=== PATIENT | female | born 2000 | race Caucasian/White ===

== ENCOUNTER 2021-12-22 17:48 | Emergency (ER) | payer BC, SELFPAY ==
[2021-12-22 18:17] VITALS: BP 113/72; PULSE 75; RESP 18; TEMP 37.3; O2SAT 98; BMI 19.9
[2021-12-22 19:06] LABS: Appearance Urine Clear (Clear); Bilirubin Urine Negative (Negative); Blood Urine 2+ (Negative); Color Urine Orange (Yellow); Glucose Urine Trace (Negative); Ketones Urine Negative (Negative); Leukocyte Esterase Urine Negative (Negative); Nitrite Urine Positive (Negative); Protein Urine Negative (Negative); Specific Gravity Urine <= 1.005 (1.000-1.030); pH Urine 5.5 (5.0-8.5)
[2021-12-22 19:21] LABS: RBC Urine 0-2 (0-2); WBC Urine 0-2 (0-5)
[2021-12-22] MEDS: CIPROFLOXACIN 500 MG TABLET PO (20:20)
--- NOTE | 2021-12-22 21:07 | ED_ITS ---
HPI - General Adult General Date Seen: 12/22/21 Chief complaint: Urogenital Problems, Female Stated complaint: Possible UTI, blood in urine Time Seen by Provider: 12/22/21 19:47 Source: patient History of Present Illness HPI narrative: Patient is a 21-year-old young woman who presents with urinary symptoms that started last night, she developed some dysuria and then had blood in her urine. She says that she has had lots of problems with urinary tract infections, some taking care of here, some taking care of elsewhere. She says that often cultures have been done, most of which have been positive. Looking through records here she does have a few cultures which have been positive, for which were not positive. She does state she has a new sexual partner, she is not having any abdominal pain, vaginal discharge, fevers, or any other concerning symptoms along those lines. No suspicion of . She is frustrated because she does seem to get UTIs frequent following intercourse, even though she always make sure to get up and go to the bathroom after intercourse. Says that she has plans to see a urologist but was not sure she needed a referral and so she has not made that appointment yet. Otherwise says her general health is good, she does not smoke, drinks a standard amount she says for a college student. Denies other substances. Related Data Home Medications Medication Instructions Recorded Confirmed escitalopram oxalate 10 mg tablet mg 12/22/21 methylphenidate HCl 10 mg biphasic mg PO 12/22/21 50-50 capsule,extended release norethindrone 1 mg-ethinyl tab 12/22/21 estradiol 20 mcg (24)-iron 75 mg (4) tablet (Blisovi 24 Fe) Previous Rx's Medication Instructions Recorded ciprofloxacin HCl 250 mg tablet 250 mg PO BID #10 tabs 12/22/21 (Cipro) nitrofurantoin macrocrystal 50 mg 50 mg PO Q24H PRN #20 caps 12/22/21 capsule Allergies Allergy/AdvReac Type Severity Reaction Status Date / Time Cephalosporins Allergy Intermediate Verified 12/22/21 18:22 Penicillins Allergy Intermediate Verified 12/22/21 18:22 Sulfa (Sulfonamide Allergy Intermediate Verified 12/22/21 18:22 Antibiotics) Review of Systems Status of ROS: Reports: 10 or more systems reviewed and unremarkable except as noted in History and below Exam Narrative: Exam Narrative: Vital signs as noted above. In general, an alert, well-appearing patient. Head: Normocephalic, atraumatic. Eyes: Pupils are equal reactive. Extraocular movements are full. Conjunctivae are normal. ENT: Mucous membranes are moist. Throat is normal. Neck: Supple without lymphadenopathy. Heart: Regular rate and rhythm. No murmur or rub. Lungs: Clear bilaterally. No increased work of breathing, crackles or wheezes. Abdomen: Soft and nontender. No organomegaly. No CVA tenderness. Extremities: Well perfused. No edema. No calf tenderness. Pulses intact. Neurologic: Patient is alert and oriented to person and place. Speech is fluent. Face is symmetric. Moves all extremities equally. Affect: Normal. Skin: Warm and dry. Well perfused. Const: Vital Signs, click to edit/add: Vital Signs - 24 hr 12/22/21 18:17 Temperature 99.1 F Pulse Rate [Pulse Oximeter] 75 Respiratory Rate 18 Blood Pressure [Ri ght Upper Arm] 113/72 Pulse Oximetry 98 Oxygen Delivery Me thod Room Air Documenting provider has reviewed patient's vital signs: yes Course Course Hospital Course: Urinalysis here is somewhat underwhelming, she does have positive nitrates and moderate bacteria, but 0-2 red cells and 0-2 white cells. I suggested to her that we get a 2nd urinalysis and run that for GC and chlamydia just to rule out urethritis, but given that she feels this is typical for her urinary tract i nfection and she has nitrates in her urine I am willing to treat her for urinary tract infection while we sort this out. Cultures pending. She just was on Macrobid she says a couple of months ago, so she would like to use something different. She says she has an allergy to cephalosporins so will use Cipro instead. I am going to give her prescription for nitrofurantoin 50 mg and have her try taking 1 of those after intercourse and see if she has fewer problems with UTI using that as a preventative. Otherwise, she can follow up with Urology as planned if she continues to have significant numbers of urinary tract infection. Return for worsening symptoms such as fever, abdominal or flank pain, vomiting. GC chlamydia pending. Nothing clinically to suspect PID. Vital Signs Vital signs: Initial Vital Signs Temperature 99.1 F 12/22/21 18:17 Temperature Source Temporal Artery Scan 12/22/21 18:17 Pulse Rate 75 12/22/21 18:17 Respiratory Rate 18 12/22/21 18:17 Blood Pressure 113/72 12/22/21 18:17 Blood Pressure Mean 85 12/22/21 18:17 Blood Pressure Position Supine 12/22/21 18:17 Pulse Oximetry 98 12/22/21 18:17 Oxygen Delivery Method 12/22/21 18:17 Vital Signs Temperature 99.1 F 12/22/21 18:17 Pulse Rate 75 12/22/21 18:17 Respiratory Rate 18 12/22/21 18:17 Blood Pressure 113/72 12/22/21 18:17 Pulse Oximetry 98 12/22/21 18:17 Oxygen Delivery Method 12/22/21 18:17 Temperature 99.1 F 12/22/21 18:17 Pulse Rate 75 12/22/21 18:17 Respiratory Rate 18 12/22/21 18:17 Blood Pressure 113/72 12/22/21 18:17 Pulse Oximetry 98 12/22/21 18:17 Oxygen Delivery Method 12/22/21 18:17 Medical Decision Making Lab Data Labs: Lab Results 12/22/21 Range/Units 19:03 Urine Color Sullivan A (Yellow) Urine Appearance Clear (Clear) Urine pH 5.5 (5.0-8.5) Ur Specific [place] <= 1.005 (1.000-1.030) Urine Protein Negative (Negative) Urine Glucose (UA) Trace A (Negative) Urine Ketones Negative (Negative) Urine Blood 2+ A (Negative) Urine Nitrite Positive A (Negative) Urine Bilirubin Negative (Negative) Urine Urobilinogen 1.0 (0.2-1.0) Ur Leukocyte Esterase Negative (Negative) Urine RBC 0-2 (0-2) Urine WBC 0-2 (0-5) Ur Squamous Epith Cells None (None-Few) Urine Bacteria None (None) Discharge Plan Discharge Clinical Impression: Urinary tract infection Patient Disposition: Home, Self-Care Condition: Stable Instructions: Urinary Tract Infection in Women (DC) Additional Instructions: Antibiotic as prescribed. Nitrofurantoin for use after intercourse. Await culture results and we will call you if anything turns up on the GC/chlamydia testing. Return for new symptoms such as fever, vomiting, flank pain. Prescriptions: New ciprofloxacin HCl [Cipro] 250 mg tablet 250 mg PO BID Qty: 10 0RF nitrofurantoin macrocrystal 50 mg capsule 50 mg PO Q24H PRNQty: 20 0RF Rx Instructions: must administer with a meal/food No Action escitalopram oxalate 10 mg tablet Label Comments: TAKE ONE AND ONE HALF PILLS A DAY methylphenidate HCl 10 mg capsule,ER biphasic 50-50 PO Label Comments: TAKE ONE CAPSULE BY MOUTH EVERY DAY IN THE MORNING norethindrone-e.estradiol-iron [Blisovi 24 Fe] 1 mg-20 mcg (24)/75 mg (4) tablet Label Comments: TAKE 1 TABLET BY MOUTH EVERY DAY Stand Alone Forms: MyHealth Info Instructions
--- OUTSIDE RECORDS SUMMARY | 2021-12-22 21:12 | XMS_ITS | Clinical Summary ---
:2000 Author Organization [facility] [place] [address] Care Team Providers Name Role Phone Pcp, No Primary Care Provider Unavailable Allergies Active Allergy Reactions Severity Noted Date Comments Cephalosporins Hives 02/25/2021 Penicillins Hives 02/25/2021 Sulfa (Sulfonamide Antibiotics) Hives Medications Medication Sig Dispensed Refills Start Date End Date Status nitrofurantoin 0 02/22/2021 Acti ve macrocrystals/monohydra te (MACROBID) 100 mg capsule Blisovi 24 Fe 1 mg-20 0 12/13/2020 Active mcg (24)/75 mg (4) tab HYDROcodone-acetaminoph 0 12/25/2020 Active en (NORCO) 5-325 mg per tablet escitalopram oxalate 0 12/12/2020 Active (LEXAPRO) 10 mg tablet clonazePAM (KLONOPIN) TAKE 1/2 TO 1 0 07/23/2020 Active 0.5 mg tablet TABLET BY MOUTH AT NIGHT NEEDED azithromycin (Zithromax As directed 1 6 Tablet 0 02/25/2021 Active Z-Krishna) 250 mg Tablet (250 mg) tabletIndications: every 24 hours. Non-recurrent acute Two tablets the suppurative otitis first day, one media of left ear daily days 2-5 without spontaneous rupture of tympanic membrane Active Problems Not on file Immunizations Name Administration Dates Next Due COVID-19 vaccine ([facility] 30mcg/0.3mL) PF, 1, 08/02/2020 MDV Influenza, IIV4 01/24/2021 Social History Tobacco Use Types Packs/Day Years Used Date Never Smoker Smokeless Tobacco: Never Used Tobacco Cessation: Counseling Given: Yes Alcohol Use Standard Drinks/Week Comments Yes 0 (1 standard drink = 0.6 oz pure alcoho l) weekends Alcohol Habits Answer Date Recorded How often do you have a drink containing alcohol? Not asked How many drinks containing alcohol do you have on a typical Not asked day when you are drinking? How often do you have six or more drinks on one occasion? No t asked Comment: weekends 02/25/2021 Sex Assigned at Date Recorded Not on file Obstetrics History Last Filed Vital Signs Vital Sign Reading Time Taken Comments Blood Pressure 116/74 02/25/2021 4:02 PM [facility] Pulse 78 02/25/2021 4:02 PM [facility] Temperature - - Respiratory Rate - - Oxygen Saturation 96% 02/25/2021 4:02 PM [facility] Inhaled Oxygen Concentration - - Weight 62.1 kg (136 lb 12.8 oz) 02/25/2021 4:02 PM [facility] Height - - Body Mass Index - - Plan of Treatment Health Maintenance Due Date Last Done Comments Well Child Check for age 3-20 05/15/2004 HPV series for age 9-26 (1 - 2012 2-dose series) Tdap 2012 Depression screening for age 0306/12/2013 12+ Chlamydia for age 16-24 2017 BMI (ht and wt on same day) 06/13/2019 for age 18+ Hepatitis C screening for age 0306/13/2019 18-79 COVID-19 vaccine series (3 - 01/23/2021 08/23/2020, Booster for Pfizer series) 08/02/2020 Tetanus booster 2021 Influenza for age 9-49 12/12/2021 01/24/2021 Meningococcal series for age Aged Out No longer eligible based - on patient's age to complete this to pic Results Not on filefrom Last 3 Months Insurance Payer Benefit Plan / Subscriber ID Effective Dates Phone Addre ss Type Group [place] [id number] 2001-Present [place] [address] [id number] [place] [address] Care Teams Workforce Development Assistant Relationship Specialty Start Date End Date Pcp, No PCP - General 02/25/21 .
--- OUTSIDE RECORDS SUMMARY | 2021-12-22 21:12 | XMS_ITS ---
:2000 Author Organization [facility] [place] Address [address] [place] [address]- Encounter 09/07/20 - 09/07/20 [facility] [place] [address] [place] [address] [facility] Encounter Diagnosis Skin infection (Discharge Diagnosis) - 09/07/20 Attending Physician: AYDEN Flores Admitting Physician: AYDEN Flores Referring Physician: [id number] -SELF-REFERRED, Allergies, Adverse Reactions, Alerts Substance Reaction Severity Status penicillin Active cephalosporins Active sulfa drugs Active Medications Bactroban 2% topical ointment 1 appl, Oint, TOP, 3x/day, X 10 Day(s), # 22 gm, 0 Refill(s), Rx or Hx Med Start Date: 09/07/20 Stop Date: 09/17/20 Status: Ordered Social History Social History Type Response Smoking Status Never smoker Sex Vital Signs Most recent to oldest [Reference Range]: 1 Temperature Oral [36-37.8 DegC] 36.5 DegC (09/07/20 9:07 AM) Peripheral Pulse Rate [60-100 bpm] 81 bpm (09/07/20 9:07 AM) Respiratory Rate [12-20 BR/min] 16 BR/min (09/07/20 9:07 AM) Blood Pressure [90-140/60-90 mmHg] 118/78 mmHg (09/07/20 9:07 AM) BP Obtained ? Yes PC Adult Intake (09/07/20 9:07 AM) Height/Length Dosing [129-213 cm] 175.3 cm (09/07/20 9:07 AM) Body Mass Index Dosing 20.01 kg/m2 (09/07/20 9:07 AM) Weight Dosing 61.5 kg (09/07/20 9:07 AM)
--- OUTSIDE RECORDS SUMMARY | 2021-12-22 21:12 | XMS_ITS ---
:2001 Author Care Team Providers Name Role Phone Mmtg Lab Schedule Primary Care Provider Unavailable Allergies None recorded. Medications None recorded. Problems None recorded. Procedures None recorded. Results Lab Results None recorded. Past Encounters 04/01/2021 Administration of SARS-CoV-2 Antigen Vac cine Prem Chandra MD: [address] [place], [place] [address], Ph. Social History None recorded. Vaccine List Vaccine Type COVID-19, mRNA, LNP-S, PF, 30 mcg/0.3 mL dose ([facility]) 08/02/2020 08/20/2020 04/01/2021?0.3 mL Plan of Care Reminders Provider Appointments None recorded. ? ? Lab None recorded. ? ? Referral None recorded. ? ? Procedures None recorded. ? ? Surgeries None recorded. ? ? Imaging None recorded. ? ? Vitals None recorded.
--- OUTSIDE RECORDS SUMMARY | 2021-12-22 21:12 | XMS_ITS ---
:2001 Author Organization [facility] Address [address] [place] [address]- Encounter 11/27/21 - 11/27/21 [facility] [place] [address] [place] [address] [facility] Encounter Diagnosis Urinary tract infection (Discharge Diagnosis) - 11/27/21 Attending Physician: AYDEN Cannon Sheila K. Admitting Physician: AYDEN Cannon Sheila K. Referring Physician: SELF-REFERRED, Allergies, Adverse Reactions, Alerts Substance Reaction Severity Status penicillin Active cephalosporins Active sulfa drugs Active Medications Bactroban 2% topical ointment 1 appl, Oint, TOP, 3x/day, X 10 Day(s), # 22 gm, 0 Refill(s), Rx or Hx Med Start Date: 09/07/20 Stop Date: 09/17/20 Status: CompletedMacrobid 100 mg oral capsule 100 mg = 1 cap, Cap, PO, 2x/day, X 7 Day(s), # 14 cap, 0 Refill(s), Pharmacy: [id number], Rx or Hx Med, 175, 11/27/21 9:05:00 EDT, cm, Height/Length Dosing, 61.6, 11/27/21 9:05:00 EDT,kg, Weight Dosing Start Date: 11/27/21 Stop Date: 12/04/21 Status: Ordered Results Laboratory List Name Date Bill For AMB POC Urine Test Visual Color Cmp rsn Meths 79268 11/27/21 Bill For AMB POC Urnls Dip Stick/Tablet Reagent Auto M icroscopy 10833 11/27/21 Most recent to oldest [Reference Range]: 1 POC Urinalysis Leukocyte Negative (11/27/21 9:15 AM) POC Urinalysis Urobilinogen 0.2 mg/dl (normal) (11/27/21 9:15 AM) POC Urinalysis Protein Negative (11/27/21 9:15 AM) POC Urinalysis pH 6 (11/27/21 9:15 AM) POC Urinalysis Blood Negative (11/27/21 9:15 AM) POC Urinalysis Specific [place] 1.030 (11/27/21 9:15 AM) POC Urinalysis Ketone Negative (11/27/21 9:15 AM) POC Urinalysis Glucose Negative (11/27/21 9:15 AM) POC hCG Ql Negative (11/27/21 9:15 AM) Social History Social History Type Response Smoking Status Never smoker Sex Female Vital Signs Most recent to oldest [Reference Range]: 1 Temperature Temporal [36.3-37.8 DegC] 36.3 DegC (11/27/21 8:55 AM) Peripheral Pulse Rate [60-100 bpm] 70 bpm (11/27/21 8:55 AM) Respiratory Rate [12-20 BR/min] 15 BR/min (11/27/21 8:55 AM) Blood Pressure [90-139/60-89 mmHg] 107/72 mmHg (11/27/21 8:55 AM) BP Obtained ? Yes PC Adult Intake (11/27/21 8:55 AM) Height/Length Dosing [129-213 cm] 175 cm (11/27/21 8:55 AM) Body Mass Index Dosing 20.11 kg/m2 (11/27/21 8:55 AM) Weight Dosing 61.6 kg (11/27/21 8:55 AM) Hospital Discharge Instructions Patient Pucfjbucy01/17/2022 09:40:35Urinary Tract InfectionUrinary Tract Infection Urinary tract infections (UTIs) can develop anywhere along your urinary tract. Your urinary tract isyour body's drainage system for removing wastes and extra water. Your urinary tract includes two kidneys, two ureters, a bladder, and a urethra. Your kidneys are a pair of lopez-shaped organs. Each kidney is about the size of your fist. They are located below your ribs, one on each side of your spine. CAUSES Infections are caused by microbes, which are microscopic organisms, including fungi, viruses, and bacteria. These organisms are so small that they can only be seen through a microscope. Bacteria are the microbes that most commonly cause UTIs. SYMPTOMS Symptoms of UTIs may vary by age and gender of the patient and by the location of the infection. Symptoms in young women typically include a frequent and intense urge to urinate and a painful, burning feeling in the bladder or urethra during urination. Older women and men are more likely to be tired, shaky, and weak and have muscle aches and abdominal pain. A fever may mean the infection is in your kidneys. Other symptoms of a kidney infection include pain in your back or sides below the ribs, nausea, and vomiting. DIAGNOSIS To diagnose a UTI, your caregiver will ask you about your symptoms. Your caregiver also will ask to provide a urine sample. The urine sample will be tested for bacteria and white blood cells. White blood cells are made by your body to help fight infection. TREATMENT Typically, UTIs can be treated with medication. Because most UTIs are caused by a bacterial infection, they usually can be treated with the use of antibiotics. The choice of antibiotic and length of treatment depend on your symptoms and the type of bacteria causing your infection. HOME CARE INSTRUCTIONS ?If you were prescribed antibiotics, take them exactly as your caregiver instructs you. Finishthe medication even if you feel better after you have only taken some of the medication. ?Drink enough water and fluids to keep your urine clear or pale yellow. ?Avoid caffeine, tea, and carbonated beverages. They tend to irritate your bladder. ?Empty your bladder often. Avoid holding urine for long periods of time. ?Empty your bladder before and after sexual intercourse. ?After a bowel movement, women should cleanse from front to back. Use each tissue only once. SEEK MEDICAL CARE IF: ?You have back pain. ?You develop a fever. ?Your symptoms do not begin to resolve within 3 days. SEEK IMMEDIATE MEDICAL CARE IF: ?You have severe back pain or lower abdominal pain. ?You develop chills. ?You have nausea or vomiting. ?You have continued burning or discomfort with urination. MAKE SURE YOU: ?Understand these instructions. ?Will watch your condition. ?Will get help right away if you are not doing well or get worse. This information is not intended to replace advice given to you by your health care provider. Make sure you discuss any questions you have with your health care provider. Document Released: 01/07/2006 Document Revised: 04/20/2015 Document Reviewed: 05/07/2012 Elsevier Interactive Patient Education ??2016 [employer]
[2021-12-22 22:16] LABS: Chlamydia DNA Amplified* NOT DETECTED (No Detected); GC DNA Amplified* NOT DETECTED (No Detected)
== END 2021-12-22 21:16 | disposition home or self-care (01) ==
LOC: ED 21:09
PROVIDERS: Emergency Provider Emergency Medicine
DX: N39.0 Urinary tract infection, site not specified (principal)
CPT/HCPCS: 81001; 87086; 87491; 87591; 99283; A9270

== ENCOUNTER 2022-08-24 17:43 | Emergency (ER) | payer BC, SELFPAY ==
[2022-08-24 17:56] VITALS: BP 118/70; PULSE 81; RESP 18; TEMP 36.7; O2SAT 100; BMI 20.7
[2022-08-24 17:59] LABS: Appearance Urine Clear (Clear); Bilirubin Urine Negative (Negative); Blood Urine 1+ (Negative); Color Urine Yellow (Yellow); Glucose Urine Negative (Negative); Ketones Urine Negative (Negative); Leukocyte Esterase Urine 1+ (Negative); Nitrite Urine Negative (Negative); Protein Urine Negative (Negative); Specific Gravity Urine <= 1.005 (1.000-1.030); Urobilinogen Urine 0.2 (0.2-1.0); pH Urine 6.5 (5.0-8.5)
[2022-08-24 18:08] LABS: Squamous Epithelial Cell Urine Moderate (None-Few)
--- NOTE | 2022-08-24 18:08 | ED.FEMALEGU ---
HPI - Female Genitourinary General Time Seen by Provider: 18:08 Date Seen: 08/24/22 Chief complaint: Urogenital Problems, Female Stated complaint: Possible UTI Time Seen by Provider: 08/24/22 17:50 Source: patient, RN notes reviewed and old records reviewed Mode of arrival: ambulatory Limitations: no limitations History of Present Illness HPI Narrative: Patient is a 22-year-old female with history of UTIs coming to the ER with concern of urinary tract infection. Since yesterday she is had frequency, urgency, dysuria, going small amounts. She is not documented any fever but states she felt a little chilled today. She has had no nausea or vomiting. She has some suprapubic discomfort but no abdominal pain per se. There are no vaginal symptoms with this. She is on oral contraceptive, takes a daily, has not missed any doses. There may be is a history of a kidney stone once, it was not collected, she is not sure if she indeed past are not. She is having no flank pain or abdominal pain consistent with any of those prior symptoms. MD elicited complaint: UTI Related Data Home Medications Medication Instructions Recorded Confirmed escitalopram oxalate 10 mg tablet 15 mg PO DAILY 12/22/21 08/24/22 methylphenidate HCl 10 mg biphasic 10 mg PO DAILY 12/22/21 08/24/22 50-50 capsule,extended release norethindrone 1 mg-ethinyl 1 tab PO DAILY 12/22/21 08/24/22 estradiol 20 mcg (24)-iron 75 mg (4) tablet (Blisovi 24 Fe) escitalopram oxalate 5 mg tablet 5 mg PO DAILY 08/24/22 08/24/22 Allergies Allergy/AdvReac Type Severity Reaction Status Date / Time Cephalosporins Allergy Intermediate Verified 08/24/22 18:00 Penicillins Allergy Intermediate Verified 08/24/22 18:00 Sulfa (Sulfonamide Allergy Intermediate Verified 08/24/22 18:00 Antibiotics) Review of Systems Narrative: As per HPI PFSH PFSH Social History Smoking Status: Never smoker Do you use any of these nicotine containing products: None Second hand tobacco smoke exposure: No How often do you have a drink containing alcohol: 2-4 times a month How many standard drinks containing alcohol do you have on a typical day: 5 or 6 How often do you have six or more drinks on one occasion: Monthly AUDIT-C Alcohol total score: 6 Non-prescribed substance use: denies use Exam Const: Vital Signs, click to edit/add: Vital Signs - 24 hr 08/24/22 17:56 Temperature 98.1 F Pulse Rate [Pulse Oximeter] 81 Respiratory Rate 18 Blood Pressure [Ri ght Upper Arm] 118/70 Pulse Oximetry 100 Oxygen Delivery Me thod Room Air Documenting provider has reviewed patient's vital signs: yes Common normals: no apparent distress, average body habitus, oriented x3, no limitations, healthy appearing, alert and well nourished HENMT: Common normals: normocephalic Head and scalp: normocephalic Eye: Common normals: conjunctivae normal and no scleral icterus Conjunctiva: conjunctiva(e) normal Resp: Common normals: normal respiratory effort, no retractions, no use of accessory muscles and clear to auscultation bilaterally Auscultation: clear to auscultation bilaterally Cardio: Common normals: regular rate, regular rhythm, S1 normal heart sound, S2 normal heart sound, no gallops, no clicks and no murmurs Rate: regular rate Rhythm: regular rhythm Heart sounds: S1 normal and S2 normal GI: Common normals: Normal to inspection, nondistended, normoactive bowel sounds present, soft to palpation, non-tender and no masses Palpation: soft : Common normals: no CVA tenderness Bladder/kidney exam: no CVA tenderness Back & Pelvis: Common normals: no CVA tenderness Neuro: Common normals: oriented x3 Sensorium/orientation: alert Course Course Hospital Course: Reviewed with patient we will await the urinalysis, hopefully will not be long. She left a specimen already and it is already down in lab. Reevaluation(s) Reevaluation #1: Did review urinalysis results with patient. Her specific gravity was low in confirmed that she has been drinking lots of fluids. Despite that, she still does have a few red and white cells in the urine, both 5-10. Did also review that there was contamination with squamous epithelial cells. She is quite sure that she has urinary tract infection. She would prefer treating. Did offer to recollect a specimen but she would like to treat. I do think her symptoms support recognition of UTI and treatment. Time: 18:17 Vital Signs Vital signs: Initial Vital Signs Temperature 98.1 F 08/24/22 17:56 Temperature Source Temporal Artery Scan 08/24/22 17:56 Pulse Rate 81 08/24/22 17:56 Respiratory Rate 18 08/24/22 17:56 Blood Pressure 118/70 08/24/22 17:56 Blood Pressure Mean 86 08/24/22 17:56 Blood Pressure Position Sitting 08/24/22 17:56 Pulse Oximetry 100 08/24/22 17:56 Oxygen Delivery Method Room Air 08/24/22 17:56 Vital Signs Temperature 98.1 F 08/24/22 17:56 Pulse Rate 81 08/24/22 17:56 Respiratory Rate 18 08/24/22 17:56 Blood Pressure 118/70 08/24/22 17:56 Pulse Oximetry 100 08/24/22 17:56 Oxygen Delivery Method Room Air 08/24/22 17:56 Temperature 98.1 F 08/24/22 17:56 Pulse Rate 81 08/24/22 17:56 Respiratory Rate 18 08/24/22 17:56 Blood Pressure 118/70 08/24/22 17:56 Pulse Oximetry 100 08/24/22 17:56 Oxygen Delivery Method Room Air 08/24/22 17:56 MDM - Female Genitourinary Differential Diagnosis Differential diagnosis: Likely urinary tract infection, bacterial vaginosis, vaginitis and cystitis Lab Data Attestation: I reviewed the patient's lab results. Labs: Lab Results 08/24/22 Range/Units 17:53 Urine Color Yellow (Yellow) Urine Appearance Clear (Clear) Urine pH 6.5 (5.0-8.5) Ur Specific [place] <= 1.005 (1.000-1.030) Urine Protein Negative (Negative) Urine Glucose (UA) Negative (Negative) Urine Ketones Negative (Negative) Urine Blood 1+ A (Negative) Urine Nitrite Negative (Negative) Urine Bilirubin Negative (Negative) Urine Urobilinogen 0.2 (0.2-1.0) Ur Leukocyte Esterase 1+ A (Negative) Urine RBC 5-10 A (0-2) Urine WBC 5-10 A (0-5) Ur Squamous Epith Cells Moderate A (None-Few) Urine Bacteria None (None) Critical Care Time Critical Care Time Critical Care Time: No Discharge Plan Discharge Clinical Impression: Urinary tract infection Patient Disposition: Home, Self-Care Condition: Stable Instructions: Urinary Tract Infection in Women (ED) Additional Instructions: Continue pushing fluids to help minimize urinary symptoms. Start Macrobid and take as prescribed, 1 pill twice daily for 5 days. If you are not improving in the next few days or are worsening at any point, are unable to take antibiotics for any reason, do need to be re-evaluated. Activity Level: Activity as Tolerated Discharge Diet: Regular Prescriptions: No Action escitalopram oxalate 10 mg tablet 15 mg PO DAILY Patient Comments: TAKE ONE AND ONE HALF PILLS A DAY methylphenidate HCl 10 mg capsule,ER biphasic 50-50 10 mg PO DAILY Patient Comments: TAKE ONE CAPSULE BY MOUTH EVERY DAY IN THE MORNING Blisovi 24 Fe 1 mg-20 mcg (24)/75 mg (4) tablet 1 tab PO DAILY Patient Comments: TAKE 1 TABLET BY MOUTH EVERY DAY escitalopram oxalate 5 mg tablet 5 mg PO DAILY Follow Up/Referrals: Provider,Not a Local [Primary Care Provider] - Stand Alone Forms: [employer] Info Instructions
--- OUTSIDE RECORDS SUMMARY | 2022-08-24 18:26 | XMS_ITS | Continuity of Care Document ---
Author Name Unknown Organization [facility] Address [address], [address] [place] [address] Phone Care Team Providers Care Inventory Transcriber Name Role Phone Estrella Lawrence Unavailable Unavailable Allergies, Adverse Reactions, Alerts Substance Reaction Status Criticality Cephalosporins hives Active No Informatio n Sulfa (Sulfonamide Antibiotics) hives Active No Information Penicillins Hives Active No Information Medications Medication Instructions Dosage Effective Dates (start - stop) Status Comments 1 mg-20 mcg (24)/75 mg (4) tablet TAKE 1 TABLET BY MOUTH EVERY DAY - Active Macrobid 100 mg capsule take 1 capsule by oral route every 12 hours with food 100 MG - Active FOREST ALLERGY (unknown strength) take 1 tablet by oral route 2 times every day Not Available - Active Lexapro 10 mg tablet take 1 tablet by oral route every day 10 MG - Active Procedures Procedure Date PREV VISIT, EST, AGE 18-39 OFFICE/OUTPATIENT VISIT, EST CHYLMD TRACH DNA AMP PROBE N.GONORRHOEAE DNA AMP PROB OFFICE/OUTPATIENT VISIT, EST PREV VISIT, EST, AGE 18-39 OFFICE/OUTPATIENT VISIT, EST URINALYSIS, AUTO W/SCOPE URINE CULTURE/COLONY COUNT OFFICE/OUTPATIENT VISIT, EST URINALYSIS, AUTO W/SCOPE URINE CULTURE/COLONY COUNT PREV VISIT, EST, AGE 18-39 OFFICE/OUTPATIENT VISIT, NEW Advance Directives Directive Yes / No Effective Date File Name No Information Encounters Encounter Description Practice Location Reason(s) For Visit Diagnoses Date Provider Providers Copied on Encounter [facility], [address], [address], [place], [id number], [place] tel:[phone] 24 Research No Information 2 Srinivasa De La Rosa. [address], [address], [place], [place], [id number] . tel: [phone] [facility], [address], [address], [place], [id number], [place] tel:[phone] 24 Research No Information 2 Charlie LASHELL Avilesig. [address] , [address], [place] , [id number] , [place]. tel: [phone] PREV VISIT, EST, AGE 18-39 [facility], [address], [address], [place], [id number], [place] tel:[phone] Research Annual Exam (chief complaint) *STI Screening (chief complaint) Encounter for gynecological examination (general) (routine) without abnormal findingsEncounter for screening examination for sexually transmitted diseaseEncounter for surveillance of contraceptive pills 2 Srinivasa De La Rosa. [address], [address], [facility] , [id number] . tel: [phone] Referring Provider: Estrella Bernabe, [address], [facility] , [id number]. tel:[phone] OFFICE/OUTPAT IENT VISIT, EST [facility], [address], [address], [place], [id number], [place] tel:[phone] Research possible UTI (chief complaint) UTI symptomsEncounter for screening examination for sexually transmitted diseaseVaginitis and vulvovaginitis, unspecified 2 Alondra Ortega. [address] , [address], [place], [place], , [place]. tel: [phone] Referring Provider: Jordan Gonzales, [address], [place], [place], . tel:[phone] OFFICE/OUTPAT IENT VISIT, [facility], [address], [address], [place], [id number], [place] tel:[phone] 24 Research *HOSE TUBING BACKER Problems (chief complaint) Vaginal lesionChronic UTI 1 Alondra Ortega. [address] , [address], [place], [place], [id number] , [place]. tel: [phone] Referring Provider: Jordan Gonzales, [address], [place], [place], [id number]. tel:[phone] PREV VISIT, [facility], AGE 18-39 [facility], [address], [address], [place], [id number], [place] tel:[phone] Research Annual Exam (chief complaint) Encounter for gynecological examination (general) (routine) without abnormal findingsSexually transmitted disease counseling 1 Alondra Ortega. [address] , [address], [place], [place], , [place]. tel: [phone] Referring Provider: Jordan Gonzales, [address], [place] , . tel:[phone] OFFICE/OUTPAT IENT VISIT, [facility], [address], [address], [place], [id number], [place] tel:[phone] Research *vaginal itching (chief complaint) Vaginitis and vulvovaginitis, unspecifiedUTI (urinary tract infection), bacterial 0 Alondra Ortega. [address] , [address], [place], [id number] , [place]. tel: [phone] Referring Provider: Jordan Gonzales, [address], [facility] , [id number]. tel:[phone] OFFICE/OUTPAT IENT VISIT, [facility], [address], [place], [id number], [place] tel:[phone] 24 Research *UTI (chief complaint) Hematuria due to acute cystitis 0 Srinivasa De La Rosa. [address], [address], [place], [place], . tel: [phone] Referring Provider: Estrella Bernabe, [address], [place], [place], [id number]. tel:[phone] PREV VISIT, [facility], AGE 18-39 [facility], [address], [address], [place], [id number], [place] tel:[phone] 24 Research Annual Exam (chief complaint) Encntr for labor conciliator exam (general) (routine) w/o abn findingsSexually transmitted disease counseling 0 Alondra Ortega. [address] , [address], [facility] , [id number] , [place]. tel: [phone] Referring Provider: Jordan Gonzales, [address], [facility] , . tel:[phone] OFFICE/OUTPAT IENT VISIT, [facility], [address], [address], [place], [id number], [place] tel:[phone] Research consult for becoming sexually active (chief complaint) irregular menses (chief complaint) Irregular mensesSexually transmitted disease counselingBirth control counseling 0 Alondra Ortega. [address] , [address], [facility] , [id number] , [place]. tel: [phone] Referring Provider: Jordan Gonzales, [address], [facility] , [id number]. tel:[phone] Family History Family Member Type Diagnosis Age At Onset Father Problem (finding) Cancer, colon Payers Payer name Insurance type Covered libertarian ID Jess diaz(s) [facility] [id number] Social History Type Description Quantity Date Captured Comments Alcohol Use Details Unknown Caffeine Use Details Unknown Tobacco Use Status No Information Smoking Status No Information Sex Female Chief Complaint And Reason For Visit No Information Plan Of Treatment Date Type Action Status No Information History Of Present Illness Encounter Date Complaint History Of Prese nt Illness *STI Screening Annual Exam The patient stat es she uses oral contraceptive for control. Last LMP was 11/11/2021. Her menses is regular with normal flow. Negative for dysmenorrhea and menorrhagia. Negative for: breast discharge, breast lump(s) and breast pain. Positive for: breast self exam. Pertinent negatives include abnormal bleeding (hematology), abnormal vaginal bleeding, dyspareunia, urinary incontinence, urinary urgency, vaginal discharge and vaginal itching. Diet healthy.The patient states her exercise level is walk and frequency is occasional. Additional information: Patient presents for WWE. She had a new sexual partner, desires STI screening, asymptomatic. Has chronic and frequent UTIs, going to see urologist. College in [place], studying psychology and neuropsychology. . possible UTI Pt has a hx of f req UTI's but usually related to sex. Now home on break and developed sx's last pm of dysuria and frequency. *HOSE TUBING BACKER Problems The patient pres ents with a complaint of lesion/sore. Onset: 1 month ago. Symptoms are spontaneous. Status: resolved. Location: vagina. Symptoms are aggravated by intercourse. Context includes: intercourse (after). Associated symptoms include pain with intercourse and vaginal bleeding. Patient is not experiencing chills, fever, malaise, bloating, blood in stool, nausea, vomiting and back pain. Additional information: 1 mo ago had a yeast infection, had sex with same partner x 8 mos. After intercourse, had BRB and pain. Looked with a mirror and saw a tear around the opening at 6:00. Also UTI x 3 this fall. Annual Exam The patient stat es she uses oral contraceptive for control. Last LMP was 10/26/2020. Her menses is regular. Additional information: 4 partners total. Current BF since 05/2020. Going well. Wants STD screening.. *vaginal itching Context: LMP: 1 05/10/2019. Additional information: Pt has been having BTB on 1st pack of OC's. Also recently SA with new BF. Also had recent UTI and yeast after. Currently c/o external vaginal itching and irritation. *UTI Onset: on 2019. Location is suprapubic. The patient describes it as bloody (gross) and cramping. The problem is improving. Denies aggravating factors. Relieving factors include antibiotics. Additional information: history of UTIs, LMP: 11/11/2019, Patient c/o dysuria with hematuria. Denies fever, vaginal sx. Had script for nitrofurantoin at home, has been taking BID since Thursday and dysuria is resolved. BRB drops in toilet/wiping. Annual Exam Her menses is re gular. Negative for dysmenorrhea and menorrhagia. Additional information: No new partners. Broke up with BF.. irregular menses Last menstrual period was on 06/21/2019. Pertinent negatives include nausea.Additional information: The pt usually has regular menses q mo but has occ irregular cycles, particularly when feels stressed. Currently on her period. consult for becoming sexually active Pt recently became SA for the 1st time a few months ago. 1 partner. He had no prior partners. They used condoms. She wants to discuss BC and STD prevention. Instructions Date Instruction Additional Infor lemuel No Information Assessments Type Assessment Date No Information
--- OUTSIDE RECORDS SUMMARY | 2022-08-24 18:26 | XMS_ITS | Continuity of Care Document ---
Author Name Unknown Organization [facility] Address [address] [place] [address] Phone Care Team Providers Care Content Development Specialist Name Role Phone Unavailable Unavailable Unavailable Allergies, Adverse Reactions, Alerts Substance Reaction Status Criticality Cephalosporins Rash Active No Informatio n Advance Directives Directive Yes / No Effective Date File Name Resuscitation Not Answered N/A N/A Life Support Not Answered N/A N/A Intubation Not Answered N/A N/A Antibiotics Not Answered N/A N/A IV Fluid Support Not Answered N/A N/A Tube Feed Not Answered N/A N/A Other Directive N/A N/A WARNING:The information contained in this section is historical and is provided for information only and does not constitute a legal document or any assurance that the information is still accurate. Please verify the information with the chen of the legal document before using it for clinical purposes. Encounters Encounter Description Practice Location Reason(s) For Visit Diagnoses Date Provider Providers Copied on Encounter [facility], [address], [place], [place], [id number], tel:[phone] [place] No Information No Information Referring Provider: JUANY VILLAR, [address], [place], [address]. tel:[phone] Family History Family Member Type Diagnosis Age At Onset Father Problem (finding) Heart murmur as a child Paternal Grandfather Problem (finding) Rheumatic fever Payers Payer name Insurance type Covered alliance party ID Authoriza timone(s) KAYLYN SINGH [place] PPO [id number] Social History Type Description Quantity Date Captured [...]
--- OUTSIDE RECORDS SUMMARY | 2022-08-24 18:29 | XMS_ITS | Continuity of Care Document ---
Author Name Unknown Organization [facility] Address [address] [place] [address] Phone Care Team Providers Care Biomedical Engineering Supervisor Name Role Phone Unavailable Unavailable Unavailable Allergies, [...] on Encounter [facility], [address], [place], [place], [id number], tel:[phone] [place] No Information No Information Referring Provider: JUANY VILLAR, [address] [facility], [place], [address]. tel:[phone] Family History Family Member Type Diagnosis Age At Onset Father Problem (finding) Heart murmur as a child Paternal Grandfather Problem (finding) Rheumatic fever Payers Payer name Insurance type Covered green party ID Authoriza timone(s) KAYLYN SINGH MD PPO [id number] Social History Type Description Quantity Date Captured [...]
--- OUTSIDE RECORDS SUMMARY | 2022-08-24 18:29 | XMS_ITS | Continuity of Care Document ---
Author Name Unknown Organization [facility] Care Address [address], [address] [place] [address] Phone Care Team Providers Care Construction Representative Name Role Phone Estrella Lawrence Unavailable Unavailable [...] hours with food 100 MG - Active Lexapro 10 mg tablet take 1 tablet by oral route every day 10 MG - Active FOREST ALLERGY (unknown strength) take 1 tablet by oral route 2 times every day Not Available - Active Procedures Procedure Date PREV VISIT, [...] Diagnoses Date Provider Providers Copied on Encounter [facility], [address], [address], [place], [id number], [place] tel:[phone] Research No Information 2 Srinivasa De La Rosa. [address], [address], [place], [place], [id number] . tel: [phone] [facility], [address], [address], [place], [id number], [place] tel:[phone] Research No Information 2 Charlie LASHELL Avilesig. [address] , [address], [place] , [id number] , [place]. tel: [phone] PREV VISIT, EST, AGE 18-39 [facility], [address], [address], [place], [id number], [place] tel:[phone] Research Annual Exam (chief complaint) *STI Screening (chief complaint) Encounter for gynecological examination (general) (routine) without abnormal findingsEncounter for screening examination for sexually transmitted diseaseEncounter for surveillance of contraceptive pills 2 Srinivasa De La Rosa. [address], [address], [facility] , [id number] . tel: [phone] Referring Provider: Estrella Bernabe, [address], [facility] , [id number]. tel:[phone] OFFICE/OUTPAT IENT VISIT, EST [facility], [address], [address], [place], [id number], [place] tel:[phone] Research possible UTI (chief complaint) UTI symptomsEncounter for screening examination for sexually transmitted diseaseVaginitis and vulvovaginitis, unspecified 2 Alondra Ortega. [address] , [address], [place], [place], , [place]. tel: [phone] Referring Provider: Jordan Gonzales, [address], [place], [place], . 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 [address] , [address], [place], [place], [id number] , [place]. tel: [phone] Referring Provider: Jordan Gonzales, [address], [place], [place], [id number]. tel:[phone] PREV VISIT, [facility], AGE 18-39 [facility], [address] [facility] [address], [address], [place], [id number], [place] tel:[phone] Research Annual Exam (chief complaint) Encounter for gynecological examination (general) (routine) without abnormal findingsSexually transmitted disease counseling 1 Alondra Ortega. [address] , [address], [place], [place], , [place]. tel: [phone] Referring Provider: Jordan Gonzales, [address], [place] , . tel:[phone] OFFICE/OUTPAT IENT VISIT, [facility], [address] [facility] [address], [address], [place], [id number], [place] tel:[phone] Research *vaginal itching (chief complaint) Vaginitis and vulvovaginitis, unspecifiedUTI (urinary tract infection), bacterial 0 Alondra Ortega. [address] , [address], [place], [id number] , [place]. tel: [phone] Referring Provider: Jordan Gonzales, [address], [facility] , [id number]. tel:[phone] OFFICE/OUTPAT IENT VISIT, [facility], [address], [place], [id number], [place] tel:[phone] Research *UTI (chief complaint) Hematuria due to acute cystitis 0 Srinivasa De La Rosa. [address], [address], [place], [place], . tel: [phone] Referring Provider: Estrella Bernabe, [address], [place], [place], [id number]. tel:[phone] PREV VISIT, [facility], AGE 18-39 [facility], [address] [facility] [address], [address], [place], [id number], [place] tel:[phone] Research Annual Exam (chief complaint) Encntr for hay rake operator exam (general) (routine) w/o abn findingsSexually transmitted disease counseling 0 Alondra Ortega. [address] , [address], [facility] , [id number] , [place]. tel: [phone] Referring Provider: Jordan Gonzales, [address], [facility] , . tel:[phone] OFFICE/OUTPAT IENT VISIT, [facility], [address] [facility] [address], [address], [place], [id number], [place] tel:[phone] Research consult for becoming sexually active (chief complaint) irregular menses (chief complaint) Irregular mensesSexually transmitted disease counselingBirth control counseling 0 Alondra Ortega. [address] , [address], [facility] , [id number] , [place]. tel: [phone] Referring Provider: Jordan Gonzales, [address], [facility] , [id number]. tel:[phone] Family History Family Member Type Diagnosis Age At Onset Father Problem (finding) Cancer, colon Payers Payer name Insurance type Covered republican ID Jess diaz(s) [facility] [id number] Social History Type Description Quantity Date Captured [...] UTIs, going to see urologist. College in [place], studying psychology and neuropsychology. . possible UTI Pt has a hx of f req UTI's but usually related to sex. Now home on break and developed sx's last pm of dysuria and frequency. 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 Broke up with BF.. consult for becoming sexually active Pt recently became SA for the 1st time a few months ago. 1 partner. He had no prior partners. They used condoms. She wants to discuss BC and STD prevention. irregular menses Last menstrual period was on 06/21/2019. Pertinent negatives include nausea.Additional information: The pt usually has regular menses q mo but has occ irregular cycles, particularly when feels stressed. Currently on her period. Instructions Date Instruction Additional Infor cariion No Information Assessments Type Assessment Date No Information
== END 2022-08-24 18:41 | disposition home or self-care (01) ==
PROVIDERS: Emergency Provider Family Medicine
DX: N39.0 Urinary tract infection, site not specified (principal)
CPT/HCPCS: 81001; 87086; 87186; 99282; 99283

== ENCOUNTER 2023-07-16 19:35 | Emergency (ER) | payer BC, SELFPAY ==
[2023-07-16 19:45] VITALS: BP 110/73; PULSE 77; RESP 14; TEMP 36.3; O2SAT 99; BMI 22.2
[2023-07-16 19:50] LABS: Appearance Urine Clear (Clear); Bilirubin Urine Negative (Negative); Blood Urine 1+ (Negative); Color Urine Yellow (Yellow); Glucose Urine Negative (Negative); Ketones Urine Negative (Negative); Leukocyte Esterase Urine 1+ (Negative); Nitrite Urine Negative (Negative); Protein Urine Negative (Negative); Urobilinogen Urine 0.2 (0.2-1.0)
[2023-07-16 20:01] LABS: Bacteria Urine Few
--- NOTE | 2023-07-16 20:21 | ED.GENADULT ---
HPI - General Adult General Date Seen: 07/16/23 Chief complaint: Urogenital Problems, Female Stated complaint: Poss UTI, pain Time Seen by Provider: 07/16/23 20:04 Source: patient Mode of arrival: ambulatory Limitations: no limitations History of Present Illness HPI narrative: Patient is a 23-year-old who presents with dysuria and bladder pain which started today. She has a history of UTI and this feels the same. She says she has been treated with Macrobid and Cipro in the past, tolerated both well and both were effective. She denies fevers, flank pain, vomiting, chills. No new sexual partners, vaginal discharge or concerns about STD exposure. She has used Pyridium in the past with good result. Related Data Home Medications Medication Instructions Recorded Confirmed escitalopram oxalate 10 mg tablet 15 mg PO DAILY 12/22/21 07/16/23 norethindrone 1 mg-ethinyl 1 tab PO DAILY 12/22/21 07/16/23 estradiol 20 mcg (24)-iron 75 mg (4) tablet (Blisovi 24 Fe) escitalopram oxalate 5 mg tablet 5 mg PO DAILY 08/24/22 07/16/23 bupropion HCl 75 mg tablet 75 mg PO DAILY 07/16/23 07/16/23 clonazepam 0.5 mg tablet 0.5 mg PO QPM 07/16/23 07/16/23 Allergies Allergy/AdvReac Type Severity Reaction Status Date / Time Cephalosporins Allergy Intermediate Verified 07/16/23 19:44 Penicillins Allergy Intermediate Verified 07/16/23 19:44 Sulfa (Sulfonamide Allergy Intermediate Verified 07/16/23 19:44 Antibiotics) Review of Systems Status of ROS: Reports: 6 or more systems reviewed and unremarkable except as noted in History and below [facility] Social History Smoking Status: Never smoker Do you use any of these nicotine containing products: None Second hand tobacco smoke exposure: No How often do you have a drink containing alcohol: 2-4 times a month How many standard drinks containing alcohol do you have on a typical day: 5 or 6 How often do you have six or more drinks on one occasion: Monthly AUDIT-C Alcohol total score: 6 Non-prescribed substance use: denies use Exam Narrative: Exam Narrative: Vital signs reviewed In general, alert, nontoxic young woman, looks comfortable. Abdomen: Soft nontender. Back: No CVA tenderness. Skin: Warm dry well perfused. Const: Vital Signs, click to edit/add: Vital Signs - 24 hr 07/16/23 19:45 Temperature 97.3 F L Pulse Rate [Pulse Oximeter] 77 Respiratory Rate 14 Blood Pressure [Ri ght Upper Arm] 110/73 Pulse Oximetry 99 Oxygen Delivery Me thod Room Air Documenting provider has reviewed patient's vital signs: yes Course Course ED Course: Urinalysis is suggestive of urinary tract infection with 2-5 red cells, 10-25 white blood cells. Few bacteria, no squames. Culture pending. Will treat with Macrobid for now, I gave her dose of Pyridium and will prescribe that as well for use over the next 1-2 days. Advised if she is not improved or if she worsens at any point, notes fevers, flank pain, vomiting etcetera she should return to the emergency department. Vital Signs Vital signs: Initial Vital Signs Temperature 97.3 F L 07/16/23 19:45 Temperature Source Temporal Artery Scan 07/16/23 19:45 Pulse Rate 77 07/16/23 19:45 Pulse Rhythm Regular 07/16/23 19:45 Respiratory Rate 14 07/16/23 19:45 Blood Pressure 110/73 07/16/23 19:45 Blood Pressure Mean 85 07/16/23 19:45 Blood Pressure Position Sitting 07/16/23 19:45 Pulse Oximetry 99 07/16/23 19:45 Oxygen Delivery Method Room Air 07/16/23 19:45 Vital Signs Temperature 97.3 F L 07/16/23 19:45 Pulse Rate 77 07/16/23 19:45 Respiratory Rate 14 07/16/23 19:45 Blood Pressure 110/73 07/16/23 19:45 Pulse Oximetry 99 07/16/23 19:45 Oxygen Delivery Method Room Air 07/16/23 19:45 Temperature 97.3 F L 07/16/23 19:45 Pulse Rate 77 07/16/23 19:45 Respiratory Rate 14 07/16/23 19:45 Blood Pressure 110/73 07/16/23 19:45 Pulse Oximetry 99 07/16/23 19:45 Oxygen Delivery Method Room Air 07/16/23 19:45 Medical Decision Making Lab Data Labs: Lab Results 07/16/23 Range/Units 19:36 Urine Color Yellow (Yellow) Urine Appearance Clear (Clear) Urine pH 6.0 (5.0-8.5) Ur Specific [place] 1.010 (1.000-1.030) Urine Protein Negative (Negative) Urine Glucose (UA) Negative (Negative) Urine Ketones Negative (Negative) Urine Blood 1+ A (Negative) Urine Nitrite Negative (Negative) Urine Bilirubin Negative (Negative) Urine Urobilinogen 0.2 (0.2-1.0) Ur Leukocyte Esterase 1+ A (Negative) Urine RBC 2-5 A (0-2) Urine WBC 10-25 A (0-5) Ur Squamous Epith Cells None (None-Few) Urine Bacteria Few A (None) Discharge Plan Discharge Clinical Impression: Urinary tract infection Patient Disposition: Home, Self-Care Condition: Stable Instructions: Urinary Tract Infection in Women (DC) Additional Instructions: Macrobid as prescribed. Pyridium as needed over the next 1-2 days until symptoms are improved. If symptoms do not improve in this time frame or you develop fevers, vomiting, chills, kidney pain, return for re-evaluation. Prescriptions: No Action escitalopram oxalate 10 mg tablet 15 mg PO DAILY Patient Comments: TAKE ONE AND ONE HALF PILLS A DAY Blisovi 24 Fe 1 mg-20 mcg (24)/75 mg (4) tablet 1 tab PO DAILY Patient Comments: TAKE 1 TABLET BY MOUTH EVERY DAY escitalopram oxalate 5 mg tablet 5 mg PO DAILY clonazepam 0.5 mg tablet 0.5 mg PO QPM bupropion HCl 75 mg tablet 75 mg PO DAILY Follow Up/Referrals: Provider,Not a Local [Primary Care Provider] - Stand Alone Forms: [employer] Info Instructions
[2023-07-16] MEDS: PHENAZOPYRIDINE HCL 200 MG TABLET PO (20:22)
== END 2023-07-16 20:56 | disposition home or self-care (01) ==
LOC: ED 20:40
PROVIDERS: Emergency Provider Emergency Medicine
DX: N39.0 Urinary tract infection, site not specified (principal)
CPT/HCPCS: 81001; 87086; 87186; 99283; 99284; A9270

== ENCOUNTER 2023-08-10 03:23 | Emergency (ER) | payer BC, SELFPAY ==
--- OUTSIDE RECORDS SUMMARY | 2023-08-10 03:27 | XMS_ITS | Data Portability ---
Author Name Unknown Address [address] [place] [address] Phone [phone] Organization [facility], [facility] - [facility] - [facility] Address [address] [place] [address] Assessment No assessment recorded. Plan of Treatment Reminders Order Date Submit Date Provider Last Modified By Organization Details Last Modified Time Details Appointments None record ed. Lab None record ed. Referral None record ed. Procedures None record ed. Surgeries None record ed. Imaging None record ed. Medication Orders None record ed. Patient TargetsNo targets recorded. Patient InstructionsNo instructions recorded. Reason for Referral None Reported. Medical Equipment None Reported. Vitals None Recorded Social History None recorded. Functional Status None recorded. Mental Status None recorded. Family History Nothing Reported. Medical History No medical history recorded. Gynecological HistoryNo gynecological history recorded. Obstetrics History GPAL:G 0 P 0 0 0 0 Immunizations Vaccine Type Date Status Provider Name and Address Organization Details Recorded Time COVID-19, mRNA, LNP-S, PF, 30 mcg/0.3 mL dose 08/02/2020 completed Kelsea Amandeep null, [facility] 04/01/2021 11:36:00 COVID-19, mRNA, LNP-S, PF, 30 mcg/0.3 mL dose 08/20/2020 completed Kelsea Amandeep null, [facility] 04/01/2021 11:36:33 COVID-19, mRNA, LNP-S, PF, 30 mcg/0.3 mL dose 04/01/2021 completed [place] null, [facility] 04/01/2021 14:18:06 Past Encounters Encounter ID Performer Location Encounter Start Date Encounter Closed Date Diagnosis/Indication Diagnosis SNOMED-CT Code [id number] Ewa Chandra MD [facility]* [address],[facility] [address] [place] [id number] 04/01/2021 13:53:14 04/01/2021 16:28:31 Administration of SARS-CoV-2 antigen vaccine [id number] Health Concerns Section Related Observation LastModified by Organization Detai ls LastModified Time None Recorded Concern Status LastModified by Organization Details LastModified Time None Recorded Advance Directives Directive None Recorded Payers Encounter Date Sequence Insurance Name Policy Number Policy Cabral Covered Member ID Cabral Member ID Guarantor Name 04/01/2021 1 ANIBAL (PPO) [address] Sunny [id number] Usha Sunny OBGyn Episode No OBEpisode recorded.
--- OUTSIDE RECORDS SUMMARY | 2023-08-10 03:27 | XMS_ITS | Clinical Summary ---
Author Name Unknown Organization [facility] Address [address], [place] [address] Care Team Providers Care Office Automation Clerk Name Role Phone Lashonda Elizabeth Primary Care Provider [phone] Allergies Active Allergy Reactions Criticality Noted Date Comments Cephalosporins Hives 02/25/2021 Penicillins Hives 02/25/2021 Sulfa (Sulfonamide Antibiotics) Hives 02/11 Medications Medication Sig Dispensed Refills Start Date End Date Status fexofenadine (FOREST) 180 mg tablet Forest Active Norethindrn A-E Estradiol-Iron () 1 mg-20 mcg (24)/75 mg (4) tab Take 1 Tablet by mouth once daily. 12/04/2022 Active clonazePAM (KLONOPIN) 0.5 mg tabletIndications:Gene ralized anxiety disorder Take 1 Tablet (0.5 mg) by mouth at bedtime. 2 Tablet 02/20/2023 Active buPROPion 75 mg tabletIndications:Atte ntion deficit hyperactivity disorder (ADHD), predominantly inattentive type,Major depressive disorder, recurrent, moderate (HC) Take 1 Tablet (75 mg) by mouth once daily. 90 Tablet 3 05/19/2023 Active escitalopram oxalate (Lexapro) 20 mg tabletIndications:Gene ralized anxiety disorder,Major depressive disorder, recurrent, moderate (HC) Take 1 Tablet (20 mg) by mouth every morning. 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 Encounters Date Type Department Care Team Description 06/25/2023 Refill [facility] [address] [place] [address] Lashonda Elizabeth, Refill Request (Lexapro 20 mg tablet) 05/22/2023 Telephone [facility] [address] [facility] [address] Lashonda Elizabeth, DO Need Meds (UTI/// HAS NOT GOTTEN BETTER// ANTI BIOTIC'S ) 05/19/2023 11:25 AM SEALER [employer] CELL Office Visit [facility] [address] [place] [address] Lashonda Elizabeth Frances, DO UTI (Treated for UTI last week, continues to have burning with urination); Vaginal Itching (Vaginal itching/discomfort) 05/19/2023 Travel 05/18/2023 E-Visit [facility] [address] [facility] [place] [address] Lashonda Elizabeth, DO eVisit for Urinary Tract Infection from Last 3 Months Immunizations Name Administration Dates Next Due COVID-19 vaccine (Cryptopay 30mcg/0.3mL) PF, MDV 08/23/2020,08/02/2020 DTaP 06/18/2005, 3,2001,10/13,2001 HPV 9 (Gardasil 9) 05/26/2016,01/23/2016, 016 Hepatitis A (Peds),Unspecified 06/28/2009,2008 Hepatitis B, Unspecified 03/15/2002,2001,0 2001 Hib Conjugate, Unspecified 09/13/2002,,2001,08/12 Inactivated Polio Vaccine 06/18/2005,06/2001,2001,08/12 Influenza, IIV4 01/22/2022,01/24/2021 MMR 06/18/2005,06/14/2002 Meningococcal B 03/19/2020,10/21/2019 Meningococcal Vaccine (Menveo) 02/02/2018,2011 Pneumococcal conj 7-Valent (Prevnar 7) 0 09/13/2002,2001,2001,08/12 Tdap 11/15/2019,10/30/2011 Varicella Vaccine 06/19/2006,06/14/2002 Social History Tobacco Use Types Packs/Day Years Used Date Smoking Tobacco: Former Cigarettes Smokeless Tobacco: Never Tobacco Cessation:Counseling Given: Not Answered Alcohol Use Standard Drinks/Week Comments Yes 0 (1 standard drink = 0.6 oz pur e alcohol) weekends PHQ-2 Answer Date Recorded PHQ-2 TOTAL SCORE 4 06/25/2023 Social Connections Answer Date Recorded Frequency of Communication with Friends and Fami ly Not on file 04/13/2021 Financial Resource Strain Answer Date R ecorded Difficulty of Paying Living Expenses Not on file 04/13/2021 Difficulty of Paying Living Expenses Not on file 04/13/2021 Sex and Gender Information Value Date Recorded Sex Assigned at Not on file Gender Identity Not on file Sexual Orientation Not on file Obstetrics History Last Filed Vital Signs Vital Sign Reading Time Taken Comments Blood Pressure 117/80 05/19/2023 11:43 AM SEALER DRY CELL Pulse 92 05/19/2023 11:43 AM SEALER DRY CELL Temperature - - Respiratory Rate - - Oxygen Saturation 98% 05/19/2023 11:43 AM SEALER DRY CELL Inhaled Oxygen Concentration - - Weight 67.3 kg (148 lb 6.4 oz) 05/19/2023 11:43 AM SEALER DRY CELL Height 174.6 cm (5' 8.74) 11/12/2022 10:46 AM C DT Body Mass Index 22.08 11/12/2022 10:46 AM CDT Plan of Treatment Health Maintenance Due Date Last Done Comments HIV for age 15-65 2016 Chlamydia for age 16-24 2017 Hepatitis C screening for age 18-79 06/13/2019 Pap test for age 21-65 2022 COVID-19 vaccine series (2022- season) 2022 01/22/2022, 04/01/2021, 08/23/2020, Additional history exists BMI (ht and wt on same day) for age 18+ 11/13/2023 11/12/2022 Influenza for age 9-49 12/13/2023 01/22/2022, 2020 Depression screening for age 12+ 06/24/2024 06/25/2023, 02/11/2023, 11/12/2022 Tetanus booster 11/14/2029 11/15/2019, 10/30/2011 Pneumococcal series for age 6-64 Aged Out 09/13/2002, 2001, 2001, Additional history exists No longer eligible based on patient's age to complete this topic HPV series for age 9-26 Completed 05/26/19 17, 01/23/2016, 11/21/2015 Tdap Completed 11/15/2019, 10/30/2011 Procedures Procedure Name Priority Date/Time Associated Diagnosis Comments TRICHOMONAS, JANNETH, AND BACTERIAL VAGINOSIS BY JORGE Routine 05/19/2023 12:00 PM SEALER DRY CELL Vaginal itching URINE CULTURE Add On 05/19/2023 11:30 AM SEALER DRY CELL UTI symptoms UA W/ SEDIMENT EXAM REFLEXED PER CRITERIA Routine 05/19/2023 11:30 AM SEALER DRY CELL UTI symptoms from Last 3 Months Results * (ABNORMAL) TRICHOMONAS, JANNETH, AND BACTERIAL VAGINOSIS BY JORGE (05/19/2023 12:00 PM SEALER DRY CELL) JANNETH SPECIES Positive(A) Negative 05/20/19 24 1:22 AM SEALER DRY CELL [facility] JANNETH GLABRATA Negative Negative 05/20/2023 1:22 AM SEALER DRY CELL [facility] TRICHOMONAS VVA Negative Negative 4 1:22 AM SEALER DRY CELL [facility] BACTERIAL VAGINOSIS Negative Negative 05/20/2023 1:22 AM SEALER DRY CELL [facility] Other VAGINAL SWAB / Unknown Non-Blood / Unknown 05/19/2023 12:00 PM SEALER DRY CELL 05/19/2023 12:51 PM SEALER DRY CELL Lashonda Elizabeth DO [facility] [address] [place] [address], [place] * URINE CULTURE (05/19/2023 11:30 AM SEALER DRY CELL) CULTURE No growth (<1,000 CFU/mL) 05/21/2023 7:21 AM SEALER DRY CELL [facility] Urine URINE SPECIMEN / Unknown Non-Blood / Unknown 05/19/2023 11:30 AM SEALER DRY CELL 05/19/2023 11:43 AM SEALER DRY CELL Lashonda Elizabeth DO MICROBIOLOGY [facility] [address] [place] [address], [place] * (ABNORMAL) UA W/ SEDIMENT EXAM REFLEXED PER CRITERIA (05/19/2023 11:30 AM SEALER DRY CELL) COLOR Yellow Yellow Color 05/19/2023 11:46 AM SEALER DRY CELL [facility] CLARITY Clear Clear Clarity 05/19/2023 11:46 AM [facility] SPECIFIC GRAVITY,URINE >=1.030(A) 1.010, 1.015, 1.020, 1.025 05/19/2023 11:46 AM [facility] PH,URINE 6.5 6.0, 7.0, 8.0, 5.5, 6.5, 7.5, 8.5 05/19/2023 11:46 AM [facility] UROBILINOGEN, QUALITATIVE Normal Normal EU/dl 05/19/2023 11:46 AM [facility] PROTEIN, URINE Negative Negative mg/dL 05/19/2023 11:46 AM [facility] GLUCOSE, URINE Negative Negative mg/dL 05/19/2023 11:46 AM [facility] KETONES,URINE Negative Negative mg/dL 05/19/2023 11:46 AM [facility] BILIRUBIN,URI NE Negative Negative 05/19/2023 11:46 AM [facility] OCCULT BLOOD,URINE Negative Negative 05/19/2023 11:46 AM [facility] NITRITE Negative Negative 05/19/2023 11:46 AM [facility] LEUKOCYTE ESTERASE Negative Negative 05/19/2023 11:46 AM SEALER DRY CELL [facility] Urine URINE SPECIMEN / Unknown Non-Blood / Unknown 05/19/2023 11:30 AM SEALER DRY CELL 05/19/2023 11:43 AM SEALER DRY CELL Lashonda Elizabeth DO URINE [facility] [address] [address], from Last 3 Months Care Teams Office Automation Clerk Relationship Specialty Start Date End Date Lashonda Elizabeth DO [address] [place] [address] PCP - General Family Practice 10/16/22
[2023-08-10 03:28] VITALS: BP 109/77; PULSE 85; RESP 20; TEMP 36.9; O2SAT 99; BMI 22.2
--- OUTSIDE RECORDS SUMMARY | 2023-08-10 03:28 | XMS_ITS | Continuity of Care Document ---
Author Name Unknown Organization [facility] Address [address] [place] [address] Phone Care Team Providers Care Truck Driver Helper Name Role Phone Unavailable Unavailable Unavailable Advance Directives Directive Yes / No Effective Date File Name No Information Encounters Encounter Description Practice Location Reason(s) For Visit Diagnoses Date Provider Providers Copied on Encounter [facility], [address], [place], [place], [id number], tel:[phone] No Information No Information Referring Provider: JUANY VILLAR, [address] [facility] [facility] [address] [address] [address], [place], [address]. tel:[phone] Family History Family Member Type Diagnosis Age At Onset Father Problem (finding) Heart murmur as a child Paternal Grandfather Problem (finding) Rheumatic fever Payers Payer name Insurance type Covered green party ID Authorbarbaraa joe(s) KAYLYN ISNGH MD PPO [id number] Social History Type Description Quantity Date Captured [...]
[2023-08-10 03:35] LABS: Appearance Urine Clear (Clear); Bilirubin Urine Negative (Negative); Blood Urine 3+ (Negative); Color Urine Yellow (Yellow); Glucose Urine Negative (Negative); Ketones Urine Negative (Negative); Leukocyte Esterase Urine 3+ (Negative); Nitrite Urine Negative (Negative); Protein Urine Trace (Negative); Specific Gravity Urine >= 1.030 (1.000-1.030); Urobilinogen Urine 0.2 (0.2-1.0)
[2023-08-10 03:44] LABS: Bacteria Urine Moderate; Squamous Epithelial Cell Urine Few (None-Few); WBC Urine 25-50 (0-5)
[2023-08-10] MEDS: CIPROFLOXACIN 500 MG TABLET PO (03:56)
[2023-08-10] MEDS: PHENAZOPYRIDINE HCL 200 MG TABLET PO (03:56)
--- NOTE | 2023-08-10 03:57 | ED.GENADULT ---
HPI - General Adult General Chief complaint: Urogenital Problems, Female Stated complaint: UTI Time Seen by Provider: 08/10/23 03:31 Source: patient Mode of arrival: ambulatory Limitations: no limitations History of Present Illness HPI narrative: 23-year-old female awoke with suprapubic tenderness, dysuria overnight. No fever, back pain, vomiting or other severe symptoms. She is fairly prone to urinary tract infections in 1 to get treatment right away, despite the wee hours of the morning. Has not tried taking Tylenol, ibuprofen peridium or other interventions to help with her pain. No trauma or injury, denies risk of STDs. Compliant with her control. ED notes reviewed from last 2 visits, was treated with Macrobid about 3 weeks ago, reports that her symptoms did seem to improve in the interim. Prior cultures reviewed. Mostly pansensitive E coli but resistant to ampicillin. Multiple antibiotic allergies. No other pertinent changes to past medical history per her report. ROS notable for the urinary symptoms as above only, denies other generalized, gynecological, urinary, abdominal concerns. Past medical history unchanged from previous visit reports from contraceptive and Lexapro use. Related Data Home Medications Medication Instructions Recorded Confirmed escitalopram oxalate 10 mg tablet 15 mg PO DAILY 12/22/21 07/16/23 norethindrone 1 mg-ethinyl 1 tab PO DAILY 12/22/21 07/16/23 estradiol 20 mcg (24)-iron 75 mg (4) tablet (Blisovi 24 Fe) escitalopram oxalate 5 mg tablet 5 mg PO DAILY 08/24/22 07/16/23 bupropion HCl 75 mg tablet 75 mg PO DAILY 07/16/23 08/10/23 escitalopram oxalate 20 mg tablet 20 mg PO DAILY 08/10/23 08/10/23 Previous Rx's Medication Instructions Recorded ciprofloxacin HCl 500 mg tablet 500 mg PO Q12H #10 tabs 08/10/23 Allergies Allergy/AdvReac Type Severity Reaction Status Date / Time Cephalosporins Allergy Intermediate Verified 08/10/23 03:30 Penicillins Allergy Intermediate Verified 08/10/23 03:30 Sulfa (Sulfonamide Allergy Intermediate Verified 08/10/23 03:30 Antibiotics) PFSH PFSH Social History Smoking Status: Never smoker Do you use any of these nicotine containing products: None Second hand tobacco smoke exposure: No How often do you have a drink containing alcohol: 2-4 times a month How many standard drinks containing alcohol do you have on a typical day: 5 or 6 How often do you have six or more drinks on one occasion: Monthly AUDIT-C Alcohol total score: 6 Non-prescribed substance use: denies use Exam Const: Vital Signs, click to edit/add: Vital Signs - 24 hr 08/10/23 03:28 Temperature 98.4 F Pulse Rate [Right Pulse Oximeter] 85 Respiratory Rate 20 Blood Pressure [Ri ght Upper Arm] 109/77 Pulse Oximetry 99 Oxygen Delivery Me thod Room Air Documenting provider has reviewed patient's vital signs: yes Common normals: no apparent distress General appearance: cooperative and well kempt HENMT: Common normals: normocephalic, moist oral mucous membranes and oropharynx normal Head and scalp: normocephalic Eye: Common normals: conjunctivae normal General eye: normal appearance of both eyes Conjunctiva: conjunctiva(e) normal Resp: Common normals: normal respiratory effort, no use of accessory muscles and clear to auscultation bilaterally Effort & inspection: able to speak in complete sentences Auscultation: clear to auscultation bilaterally Cardio: Common normals: regular rate, regular rhythm, S1 normal heart sound and S2 normal heart sound Rate: regular rate Rhythm: regular rhythm Heart sounds: S1 normal and S2 normal Psych: Appearance: well kempt Attitude: engaged Mood and affect: euthymic mood Insight: insight good Judgement: judgment good Skin: Common normals: no rashes or lesions noted General skin exam: no rashes or lesions noted Course Course ED Course: Differential diagnosis urinary tract infection, renal stone, pyelonephritis, abdominal complication. Urinalysis reviewed, not consistent with infection, low risk for , good compliance with control. Multiple antibiotic allergies, previous cultures reviewed. Recent Macrobid use, would not recommend trying that again. Cipro given here in the ED and additional supply of 5 days sent to local pharmacy. Alarm symptoms reviewed the or warrant ED presentation. If she does get another bladder infection within the next 4 weeks, she should consider prophylaxis and discussed this with primary care provider. Peridium given for comfort, Tylenol and ibuprofen encouraged. She verbalizes understanding and agreement Vital Signs Vital signs: Initial Vital Signs Temperature 98.4 F 08/10/23 03:28 Temperature Source Temporal Artery Scan 08/10/23 03:28 Pulse Rate 85 08/10/23 03:28 Respiratory Rate 20 08/10/23 03:28 Blood Pressure 109/77 08/10/23 03:28 Blood Pressure Mean 87 08/10/23 03:28 Blood Pressure Position Sitting 08/10/23 03:28 Pulse Oximetry 99 08/10/23 03:28 Oxygen Delivery Method Room Air 08/10/23 03:28 Vital Signs Temperature 98.4 F 08/10/23 03:28 Pulse Rate 85 08/10/23 03:28 Respiratory Rate 20 08/10/23 03:28 Blood Pressure 109/77 08/10/23 03:28 Pulse Oximetry 99 08/10/23 03:28 Oxygen Delivery Method Room Air 08/10/23 03:28 Temperature 98.4 F 08/10/23 03:28 Pulse Rate 85 08/10/23 03:28 Respiratory Rate 20 08/10/23 03:28 Blood Pressure 109/77 08/10/23 03:28 Pulse Oximetry 99 08/10/23 03:28 Oxygen Delivery Method Room Air 08/10/23 03:28 Medications Administered Medications: Generic Name Dose Route Start Last Admin Trade Name Freq PRN Reason Stop Dose Admin Ciprofloxacin 500 mg 08/10/23 03:53 08/10/23 03:56 Ciprofloxacin 500 Mg Tablet PO 08/10/23 03:54 500 mg ONCE ONE Administration Phenazopyridine HCl 200 mg 08/10/23 03:53 08/10/23 03:56 Phenazopyridine Hcl 200 Mg Tablet PO 08/10/23 03:54 200 mg ONCE ONE Administration Medical Decision Making Lab Data Lab results reviewed: Yes I reviewed the patient's lab results Lab results narrative: Consistent with infection Labs: Lab Results 08/10/23 Range/Units 03:26 Urine Color Yellow (Yellow) Urine Appearance Clear (Clear) Urine pH 6.0 (5.0-8.5) Ur Specific [place] >= 1.030 (1.000-1.030) Urine Protein Trace A (Negative) Urine Glucose (UA) Negative (Negative) Urine Ketones Negative (Negative) Urine Blood 3+ A (Negative) Urine Nitrite Negative (Negative) Urine Bilirubin Negative (Negative) Urine Urobilinogen 0.2 (0.2-1.0) Ur Leukocyte Esterase 3+ A (Negative) Urine RBC 5-10 A (0-2) Urine WBC 25-50 A (0-5) Ur Squamous Epith Cells Few (None-Few) Urine Bacteria Moderate A (None) Discharge Plan Discharge Clinical Impression: Urinary tract infection Patient Disposition: Home, Self-Care Condition: Stable Instructions: Urinary Tract Infection in Women (DC) Additional Instructions: As we discussed, your urine is consistent with a bladder infection today. The antibiotic fever treated with 3 weeks ago as an excellent antibiotic but unfortunately does have about a 5% failure rate as it does not kill bacteria, only slows growth. I think it is important that we treat you with a stronger antibiotic this time and heavy follow-up with primary care provider if things are not improving as expected. If you do get another bladder infection within the next 4 weeks, you should be evaluated in primary care clinic to discuss preventative measures or to discuss consultation with a urologist. I prescribed ciprofloxacin, will take this twice daily for an additional 5 days. If you have high fever, severe back pain, persistent vomiting, severe weakness or other signs of complicated infection, he should come back to the emergency department. You may return to work and or school duties right away. Standard diet. This medicine is unlikely to interfere with her control but any antibiotic has the potential to decrease the effectiveness of your control. Because of this, we do recommend a backup method of control for the next few weeks. Yeast infections are not common with this antibiotic but are possible. If you feel like you have itching and irritation of the vulva, feel free to use [id number] Monistat cream or similar. Activity Level: No Restrictions Discharge Diet: Regular Prescriptions: New ciprofloxacin HCl 500 mg tablet 500 mg PO Q12H Qty: 10 0RF No Action escitalopram oxalate 10 mg tablet 15 mg PO DAILY Patient Comments: TAKE ONE AND ONE HALF PILLS A DAY Blisovi 24 Fe 1 mg-20 mcg (24)/75 mg (4) tablet 1 tab PO DAILY Patient Comments: TAKE 1 TABLET BY MOUTH EVERY DAY escitalopram oxalate 20 mg tablet 20 mg PO DAILY escitalopram oxalate 5 mg tablet 5 mg PO DAILY bupropion HCl 75 mg tablet 75 mg PO DAILY Follow Up/Referrals: Provider,Not a Local [Primary Care Provider] - Stand Alone Forms: [employer] Info Instructions
[2023-08-10 04:01] VITALS: BP 109/77; PULSE 81; RESP 20; TEMP 36.9; O2SAT 99
[2023-08-10 04:04] VITALS: BP 109/77; PULSE 81; RESP 20; TEMP 36.9
--- OUTSIDE RECORDS SUMMARY | 2023-08-10 04:05 | XMS_ITS | Clinical Summary ---
Author Name Unknown Organization [facility] Address [place], [place] [address] Care Team Providers Care Technology Officer Name Role Phone Lashonda Elizabeth Primary Care Provider [phone] Allergies Active Allergy Reactions Criticality Noted Date [...] Type Department Care Team Description 06/25/2023 Refill [facility] [address] [place] [address] Lashonda Elizabeth, Refill Request (Lexapro 20 mg tablet) 05/22/2023 Telephone [facility] [address] [place] [address] Lashonda Elizabeth, DO Need Meds (UTI/// HAS NOT GOTTEN BETTER// ANTI BIOTIC'S ) 05/19/2023 11:25 AM TRUCK PACKER Office Visit [facility] [address] [place] [address] Lashonda Elizabeth Frances, DO UTI (Treated for UTI last week, continues to have burning with urination); Vaginal Itching (Vaginal itching/discomfort) 05/19/2023 Travel 05/18/2023 E-Visit [facility] [address] [place] [address] Lashonda Elizabeth, DO eVisit for Urinary Tract Infection from Last 3 Months Immunizations Name Administration Dates Next Due COVID-19 vaccine ([employer] 30mcg/0.3mL) PF, MDV 08/23/2020,08/02/2020 DTaP 06/18/2005, 3,2001,10/13,2001 [...] Comments Blood Pressure 117/80 05/19/2023 11:43 AM TRUCK PACKER Pulse 92 05/19/2023 11:43 AM TRUCK PACKER Temperature - - Respiratory Rate - - Oxygen Saturation 98% 05/19/2023 11:43 AM TRUCK PACKER Inhaled Oxygen Concentration - - Weight 67.3 kg (148 lb 6.4 oz) 05/19/2023 11:43 AM TRUCK PACKER Height 174.6 cm (5' 8.74) 11/12/2022 10:46 [...] VAGINOSIS BY JORGE Routine 05/19/2023 12:00 PM TRUCK PACKER Vaginal itching URINE CULTURE Add On 05/19/2023 11:30 AM TRUCK PACKER UTI symptoms UA W/ SEDIMENT EXAM REFLEXED PER CRITERIA Routine 05/19/2023 11:30 AM TRUCK PACKER UTI symptoms from Last 3 Months Results * (ABNORMAL) TRICHOMONAS, JANNETH, AND BACTERIAL VAGINOSIS BY JORGE (05/19/2023 12:00 PM TRUCK PACKER) JANNETH SPECIES Positive(A) Negative 05/20/19 24 1:22 AM TRUCK PACKER [facility] JANNETH GLABRATA Negative Negative 05/20/2023 1:22 AM TRUCK PACKER [facility] TRICHOMONAS VVA Negative Negative 4 1:22 AM TRUCK PACKER [facility] BACTERIAL VAGINOSIS Negative Negative 05/20/2023 1:22 AM TRUCK PACKER [facility] Other VAGINAL SWAB / Unknown Non-Blood / Unknown 05/19/2023 12:00 PM TRUCK PACKER 05/19/2023 12:51 PM TRUCK PACKER Lashonda Elizabeth DO [facility] [address] [place] [address], [place] * URINE CULTURE (05/19/2023 11:30 AM TRUCK PACKER) CULTURE No growth (<1,000 CFU/mL) 05/21/2023 7:21 AM TRUCK PACKER [facility] Urine URINE SPECIMEN / Unknown Non-Blood / Unknown 05/19/2023 11:30 AM TRUCK PACKER 05/19/2023 11:43 AM TRUCK PACKER Lashonda Elizabeth DO MICROBIOLOGY [facility] [address] [place] [address], [place] * (ABNORMAL) UA W/ SEDIMENT EXAM REFLEXED PER CRITERIA (05/19/2023 11:30 AM TRUCK PACKER) COLOR Yellow Yellow Color 05/19/2023 11:46 AM TRUCK PACKER [place] CLARITY Clear Clear Clarity 05/19/2023 11:[address] [facility] SPECIFIC GRAVITY,URINE >=1.030(A) 1.010, 1.015, 1.020, 1.025 05/19/2023 11:[address] [facility] PH,URINE 6.5 6.0, 7.0, 8.0, 5.5, 6.5, 7.5, 8.5 05/19/2023 11:[address] [facility] UROBILINOGEN, QUALITATIVE Normal Normal EU/dl 05/19/2023 11:[address] [facility] PROTEIN, URINE Negative Negative mg/dL 05/19/2023 11:[address] [facility] GLUCOSE, URINE Negative Negative mg/dL 05/19/2023 11:[address] [facility] KETONES,URINE Negative Negative mg/dL 05/19/2023 11:[address] [facility] BILIRUBIN,URI NE Negative Negative 05/19/2023 11:[address] [facility] OCCULT BLOOD,URINE Negative Negative 05/19/2023 11:[address] [facility] NITRITE Negative Negative 05/19/2023 11:[address] [facility] LEUKOCYTE ESTERASE Negative Negative 05/19/2023 11:46 AM TRUCK PACKER RUST Urine URINE SPECIMEN / Unknown Non-Blood / Unknown 05/19/2023 11:30 AM TRUCK PACKER 05/19/2023 11:43 AM TRUCK PACKER Lashonda Elizabeth DO URINE RUST [address] [address], from Last 3 Months Care Teams Technology Officer Relationship Specialty Start Date End Date Lashonda Elizabeth DO [address] [place] [address] PCP - General Family Practice 10/16/22
--- OUTSIDE RECORDS SUMMARY | 2023-08-10 04:05 | XMS_ITS | Continuity of Care Document ---
Author Name Unknown Organization [facility] Address [address] [place] [address] Phone Care Team Providers Care Traction Power Engineer Name Role Phone Unavailable Unavailable Unavailable Advance Directives Directive Yes / No Effective Date File Name No Information Encounters Encounter Description Practice Location Reason(s) For Visit Diagnoses Date Provider Providers Copied on Encounter [facility], [address], [place], [place], [id number], tel:[phone] [address] No Information No Information Referring Provider: JUANY VILLAR, [address], [place], [address]. tel:[phone] Family History Family Member Type Diagnosis Age At Onset Father Problem (finding) Heart murmur as a child Paternal Grandfather Problem (finding) Rheumatic fever Payers Payer name Insurance type Covered libertarian ID Authorbarbaraa joe(s) KAYLYN SINGH MD PPO [id number] Social History Type Description Quantity Date Captured [...]
== END 2023-08-10 04:05 | disposition home or self-care (01) ==
LOC: ED 04:03
PROVIDERS: Emergency Provider Family Medicine
DX: N39.0 Urinary tract infection, site not specified (principal)
CPT/HCPCS: 81001; 87086; 87186; 99283; A9270

== ENCOUNTER 2023-09-01 00:54 | Emergency (ER) | payer BC, SELFPAY ==
[2023-09-01 01:09] VITALS: BP 151/105; PULSE 110; RESP 24; TEMP 36.3; O2SAT 97; BMI 22.2
--- NOTE | 2023-09-01 02:39 | ED.GENADULT ---
HPI - General Adult General Chief complaint: Alcohol/Intoxication Stated complaint: etoh Time Seen by Provider: 09/01/23 02:13 Source: patient Mode of arrival: ambulatory Limitations: no limitations History of Present Illness HPI narrative: 23-year-old female presents the emergency department brought in by her significant other. He states that they were drinking alcohol, her more than others in celebration for completion of her college courses, submitting her final assignment for graduation earlier today. He states that she got very sleepy after drinking large amounts of alcohol and new by choice had laid down on the floor. There was no trauma or injury. He became concerned with this. She was able to answer questions. She started vomiting. Therefore he brings her to the emergency department. It is quite busy and I am not able to get in to see her for about 90 minutes after arrival. She is able to answer questions, can tell me that the person with her is [place], significant other. She tells me about submission of her last college assignment. She is still retching and vomiting but denies any other ingestions. She did not do this with an intent to harm herself, she was not forcibly fed alcohol and she denies any assaults. She denies any recent illness or any regular binge drinking. It looks like and last evaluated patient about 3 weeks ago for a bladder infection. No reviewed. She denies long-term health problems. Home meds are Lexapro, bupropion. Takes oral contraceptive. ROS is notable for nausea and vomiting, intoxication, is becoming more alert during her time here in the ED. Related Data Home Medications Medication Instructions Recorded Confirmed escitalopram oxalate 10 mg tablet 15 mg PO DAILY 12/22/21 07/16/23 norethindrone 1 mg-ethinyl 1 tab PO DAILY 12/22/21 07/16/23 estradiol 20 mcg (24)-iron 75 mg (4) tablet (Blisovi 24 Fe) escitalopram oxalate 5 mg tablet 5 mg PO DAILY 08/24/22 07/16/23 bupropion HCl 75 mg tablet 75 mg PO DAILY 07/16/23 08/10/23 escitalopram oxalate 20 mg tablet 20 mg PO DAILY 08/10/23 08/10/23 Previous Rx's Medication Instructions Recorded ciprofloxacin HCl 500 mg tablet 500 mg PO Q12H #10 tabs 08/10/23 Allergies Allergy/AdvReac Type Severity Reaction Status Date / Time Cephalosporins Allergy Intermediate Verified 08/10/23 03:30 Penicillins Allergy Intermediate Verified 08/10/23 03:30 Sulfa (Sulfonamide Allergy Intermediate Verified 08/10/23 03:30 Antibiotics) [facility] Medical History Urinary tract infection ?N39.0 - Urinary tract infection, site not specified (ICD-10) Social History Smoking Status: Never smoker Do you use any of these nicotine containing products: None Second hand tobacco smoke exposure: No How often do you have a drink containing alcohol: 2-4 times a month How many standard drinks containing alcohol do you have on a typical day: 5 or 6 How often do you have six or more drinks on one occasion: Monthly AUDIT-C Alcohol total score: 6 Non-prescribed substance use: denies use Exam Const: Vital Signs, click to edit/add: Vital Signs - 24 hr 09/01/23 01:09 Temperature 97.3 F L Pulse Rate [Left P ulse Oximeter] 110 H Respiratory Rate 24 Blood Pressure [Ri ght Upper Arm] 151/105 H Pulse Oximetry 97 Oxygen Delivery Me thod Room Air Documenting provider has reviewed patient's vital signs: yes Common normals: alert General appearance: well kempt Other: Occasional vomiting and retching. Is able to answer questions. Protecting airway and maintaining alertness. HENMT: Common normals: normocephalic and oropharynx normal Head and scalp: normocephalic Eye: Common normals: conjunctivae normal General eye: normal appearance of both eyes Conjunctiva: conjunctiva(e) normal Neck & C-Spine: Common normals: full ROM Resp: Common normals: normal respiratory effort and no use of accessory muscles Effort & inspection: able to speak in complete sentences Cardio: Common normals: regular rate, regular rhythm, S1 normal heart sound and S2 normal heart sound Rate: regular rate Rhythm: regular rhythm Heart sounds: S1 normal and S2 normal GI: Common normals: Normal to inspection, nondistended, normoactive bowel sounds present, soft to palpation, non-tender, no hepatosplenomegaly and no masses Palpation: soft and no hepatosplenomegaly Extremity: Common normals: normal to inspection, normal capillary refill and no pedal edema Neuro: Sensorium/orientation: alert Motor exam: no movement abnormalities noted Other: Mildly intoxicated but no neurological focal deficits. Psych: Appearance: well kempt Mood and affect: euthymic mood Insight: fair Judgement: fair Skin: Common normals: no rashes or lesions noted General skin exam: no rashes or lesions noted Course Course ED Course: 23-year-old female with alcohol intoxication, no other signs of impairment. No signs of assault. Alertness is improving during her time in the ED. I do not recommend further workup. She has a safe adult to discharge home with. Recommend discharge. Counseled on drinking plenty of water, Tylenol and ibuprofen for headache or mild symptoms. Slowly advancing diet. Discussed seeking assistance for alcoholism if needed, does not seem to have a pattern of repetitive alcohol complications. Will be discharged home with responsible adult Vital Signs Vital signs: Initial Vital Signs Temperature 97.3 F L 09/01/23 01:09 Temperature Source Temporal Artery Scan 09/01/23 01:09 Pulse Rate 110 H 09/01/23 01:09 Respiratory Rate 09/01/23 01:09 Blood Pressure 151/105 H 09/01/23 01:09 Blood Pressure Mean 120 H 09/01/23 01:09 Blood Pressure Position Semi-Fowlers 09/01/23 01:09 Pulse Oximetry 97 09/01/23 01:09 Oxygen Delivery Method Room Air 09/01/23 01:09 Vital Signs Temperature 97.3 F L 09/01/23 01:09 Pulse Rate 110 H 09/01/23 01:09 Respiratory Rate 24 09/01/23 01:09 Blood Pressure 151/105 H 09/01/23 01:09 Pulse Oximetry 97 09/01/23 01:09 Oxygen Delivery Method Room Air 09/01/23 01:09 Temperature 97.3 F L 09/01/23 01:09 Pulse Rate 110 H 09/01/23 01:09 Respiratory Rate 24 09/01/23 01:09 Blood Pressure 151/105 H 09/01/23 01:09 Pulse Oximetry 97 09/01/23 01:09 Oxygen Delivery Method Room Air 09/01/23 01:09 Discharge Plan Discharge Clinical Impression: Alcoholic intoxication Patient Disposition: Home w/ Parent or Adult Instructions: Alcohol Intoxication (DC) Additional Instructions: As discussed, I agree that you have had too much alcohol to drink tonight. Thankfully there are no signs of dangerous complications and you are protecting your airway appropriately. Your likely to continue having nausea and vomiting for the next couple of hours. This is a natural response to drinking too much alcohol as your body tries to adjust and rate coagulating drying supervisor. Drink plenty of water and eat salty foods today to help you feel better. Headache may be common. It is okay to use Tylenol 1000 mg every 6 hours and or ibuprofen 600 mg every 6 hours. Slowly advance her diet. I would not recommend drinking this much alcohol in a short period of time again to prevent similar symptoms. If you consider herself to have a problem with alcohol or are drinking like this on a regular basis, I would recommend following up with her local [facility] for alcohol abuse. Congratulations on completion of your college career. Activity Level: No Restrictions Discharge Diet: Regular Prescriptions: No Action escitalopram oxalate 10 mg tablet 15 mg PO DAILY Patient Comments: TAKE ONE AND ONE HALF PILLS A DAY Blisovi 24 Fe 1 mg-20 mcg (24)/75 mg (4) tablet 1 tab PO DAILY Patient Comments: TAKE 1 TABLET BY MOUTH EVERY DAY escitalopram oxalate 20 mg tablet 20 mg PO DAILY ciprofloxacin HCl 500 mg tablet 500 mg PO Q12H Qty: 10 0RF escitalopram oxalate 5 mg tablet 5 mg PO DAILY bupropion HCl 75 mg tablet 75 mg PO DAILY Follow Up/Referrals: Provider,Not a Local [Primary Care Provider] - Stand Alone Forms: [facility] Info Instructions
--- OUTSIDE RECORDS SUMMARY | 2023-09-01 03:19 | XMS_ITS | Data Portability ---
Author Name Unknown Address [address] [place] [address] Phone [phone] Organization [facility] Virtual Call Center [facility], [facility] - [facility] - [facility] Address [address] [place] [address] Assessment No assessment recorded. Plan of Treatment [...] mL dose 08/02/2020 completed Kelsea Amandeep null, [facility] 04/01/2021 11:36:00 COVID-19, mRNA, LNP-S, PF, 30 mcg/0.3 mL dose 08/20/2020 completed Kelsea Amandeep null, [facility] 04/01/2021 11:36:33 COVID-19, mRNA, LNP-S, PF, 30 mcg/0.3 mL dose 04/01/2021 completed [place] null, [facility] 04/01/2021 14:18:06 Past Encounters Encounter ID Performer Location Encounter Start Date Encounter Closed Date Diagnosis/Indication Diagnosis SNOMED-CT Code [id number] Ewa Chandra MD PM_[facility] Office* [address],[facility] [address] [place] [id number] 04/01/2021 13:53:14 04/01/2021 16:28:31 Administration of SARS-CoV-2 antigen vaccine [id number] Health Concerns Section Related Observation LastModified by Organization Detai ls LastModified Time None Recorded Concern Status LastModified by Organization Details LastModified Time None Recorded Advance Directives Directive None Recorded Payers Encounter Date Sequence Insurance Name Policy Number Policy Cabral Covered Member ID Cabral Member ID Guarantor Name 04/01/2021 1 ANIBAL (PPO) 105 Nestor Sunny [id number] Usha Sunny OBGyn Episode No OBEpisode recorded.
--- OUTSIDE RECORDS SUMMARY | 2023-09-01 03:19 | XMS_ITS | Clinical Summary ---
Author Name Unknown Organization [employer] [facility] Address [place], [place] [address] Care Team Providers Care Comic Book Designer Name Role Phone Lashonda Elizabeth Primary Care Provider [phone] Allergies Active Allergy Reactions Criticality Noted Date Comments Cephalosporins Hives 02/25/2021 Penicillins Hives 02/25/2021 Sulfa (Sulfonamide Antibiotics) Hives 02/11 Medications Medication Sig Dispensed Refills Start Date End Date Status fexofenadine (FOREST) 180 mg tablet Forest Active Norethindrn A-E Estradiol-Iron () 1 mg-20 mcg (24)/75 mg (4) tab Take 1 Tablet by mouth once daily. 12/04/2022 Active clonazePAM (KLONOPIN) 0.5 mg tabletIndications:G eneralized anxiety disorder Take 1 Tablet (0.5 mg) by mouth at bedtime. 2 Tablet 02/20/2023 Active escitalopram oxalate (Lexapro) 20 mg tabletIndications:G eneralized anxiety disorder,Major depressive disorder, recurrent, moderate (HC) Take 1 Tablet (20 mg) by mouth every morning. 90 Tablet 1 06/26/2023 Active nitrofurantoin macrocrystaL (MACRODANTIN) 50 mg capsuleIndications: Frequent UTI Take 1 Capsule (50 mg) by mouth one time if needed (post-interco urse) for up to 1 dose. 5 Capsule 2 08/17/2023 Active buPROPion 75 mg tabletIndications:A ttention deficit hyperactivity disorder (ADHD), predominantly inattentive type,Major depressive disorder, recurrent, moderate (HC) Take 1 Tablet (75 mg) by mouth once daily. 90 Tablet 3 05/19/2023 08/17/2023 Discontinued (*Patient states no longer taking) ciprofloxacin HCl (CIPRO) 500 mg tablet Take 500 mg by mouth every 12 hours. 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 Last dx was 08/08 @ [facility] ER) 08/17/2023 Travel 06/25/2023 Refill [facility] [address] [place] [address] Lashonda Elizabeth, DO Refill Request (Lexapro 20 mg tablet) from Last 3 Months Immunizations Name Administration Dates Next Due COVID-19 vaccine (Icelandic Glacial 30mcg/0.3mL) PF, MDV 08/23/2020,08/02/2020 DTaP 06/18/2005, 3,2001,10/13,2001 [...] of Communication with Friends and Fami ly 0 08/17/2023 Financial Resource Strain Answer Date R ecorded Difficulty of Paying Living Expenses 3 08/17/2023 Difficulty of Paying Living Expenses Not on file 08/17/2023 Food Insecurity Answer Date Recorded Worried About Running Out of Food in the Last Ye ar 1 08/17/2023 Transportation Needs Answer Date Record ed Lack of Transportation (Medical) 1 08/17/2023 Housing Stability Answer Date Recorded Unable to Pay for Housing in the Last Year 1 08/17/2023 Sex and Gender Information Value Date Recorded Sex Assigned at Not on file Gender Identity Not on file Sexual Orientation Not on file Obstetrics History Last Filed Vital Signs Vital Sign Reading Time Taken Comments Blood Pressure 109/73 08/17/2023 10:09 AM CDT Pulse 81 08/17/2023 10:09 AM CDT Temperature - - Respiratory Rate - - Oxygen Saturation 98% 05/19/2023 11:43 AM FEED MILL MANAGER Inhaled Oxygen Concentration - - Weight 68.9 kg (152 lb) 08/17/2023 10:09 AM CDT Height 174.6 cm (5' 8.74) 11/12/2022 10:46 AM C DT Body Mass Index 22.62 11/12/2022 10:46 AM CDT Plan of Treatment [...] Procedure Name Priority Date/Time Associated Diagnosis Comments UA W/ SEDIMENT EXAM REFLEXED PER CRITERIA Routine 08/17/2023 10:23 AM CDT Frequent UTI from Last 3 Months Results * (ABNORMAL) UA W/ SEDIMENT EXAM REFLEXED PER CRITERIA (08/17/2023 10:23 AM CDT) COLOR Yellow Yellow Color 08/17/2023 10:26 AM CDT [facility] CLARITY Clear Clear Clarity 08/17/2023 10:26 AM CDT [facility] SPECIFIC GRAVITY,URINE >=1.030(A) 1.010, 1.015, 1.020, 1.025 08/17/2023 10:26 AM CDT [facility] PH,URINE 6.0 6.0, 7.0, 8.0, 5.5, 6.5, 7.5, 8.5 08/17/2023 10:26 AM CDT [facility] UROBILINOGEN, QUALITATIVE Normal Normal EU/dl 08/17/2023 10:26 AM CDT [facility] PROTEIN, URINE Negative Negative mg/dL 08/17/2023 10:26 AM CDT [facility] GLUCOSE, URINE Negative Negative mg/dL 08/17/2023 10:26 AM CDT [facility] KETONES,URINE Trace(A) Negative mg/dL 08/17/2023 10:26 AM CDT [facility] BILIRUBIN,URI NE Negative Negative 08/17/2023 10:26 AM CDT [facility] OCCULT BLOOD,URINE Negative Negative 08/17/2023 10:26 AM CDT [facility] NITRITE Negative Negative 08/17/2023 10:26 AM CDT [facility] LEUKOCYTE ESTERASE Negative Negative 08/17/2023 10:26 AM CDT [facility] Urine URINE SPECIMEN / Unknown Non-Blood / Unknown 08/17/2023 10:23 AM CDT 08/17/2023 10:23 AM CDT Reema Lopez DO URINE [facility] [address] [place] [address], from Last 3 Months Care Teams Comic Book Designer Relationship Specialty Start Date End Date Lashonda Elizabeth DO [address] [place] [address] PCP - General Family Practice 10/16/22
== END 2023-09-01 04:00 | disposition home or self-care (01) ==
PROVIDERS: Emergency Provider Family Medicine
DX: F10.129 Alcohol abuse with intoxication, unspecified (principal)
CPT/HCPCS: 99283

== ENCOUNTER 2023-10-07 09:18 | Outpatient (CLI) | payer BC, SELFPAY ==
--- OUTSIDE RECORDS SUMMARY | 2023-10-09 09:11 | XMS_ITS | Continuity of Care Document ---
Author Organization [facility] Address [address] [place] [address] Phone Care Team Providers Care Oracle Agile Plm Consultant Name Role Phone Unavailable Unavailable Unavailable Advance Directives Directive Yes / No Effective Date File Name No Information Encounters Encounter Description Practice Location Reason(s) For Visit Diagnoses Date Provider Providers Copied on Encounter [facility], [address], [place], [place], [id number], tel:[phone] [address] No Information No Information Referring Provider: JUANY VILLAR [address] [facility] [address], [place], [address]. tel:[phone] Family History Family Member Type Diagnosis Age At Onset Father Problem (finding) Heart murmur as a child Paternal Grandfather Problem (finding) Rheumatic fever Payers Payer name Insurance type Covered republican ID Authoriza joe(s) KAYLYN SINGH MD PPO [id number] Social History Type Description Quantity Date Captured [...]
--- OUTSIDE RECORDS SUMMARY | 2023-10-09 09:11 | XMS_ITS | Continuity of Care Document ---
Author Organization [facility] Address [address], [address] [place] [address] Phone Care Team Providers Care Tip Length Checker Name Role Phone Abida Coppola MD Unavailable Unavailable Allergies, Adverse Reactions, Alerts Substance Reaction Status Criticality Cephalosporins hiveshives Active No Informatio n Sulfa (Sulfonamide Antibiotics) hiveshives Active No Information Penicillins HivesHives Active No Information Medications Medication Instructions Dosage Effective Dates (start - stop) Status Comments Lexapro 10 mg tablet take 1 tablet by oral route every day 10 MG - Active Blisovi 24 Fe 1 mg-20 mcg (24)/75 mg (4) tablet take 1 tablet by oral route every day for control 1.00 tablet - Active Wellbutrin SR 150 mg tablet, 12 hr sustained-release take 1 tablet by oral route 2 times every day for Unknown 150 MG - Active Procedures Procedure Date OFFICE/OUTPATIENT VISIT, EST NFCT DS BV RNA VAG FLU ALG, [facility] YUMIKO DNA AMP PROBE, [facility] CHYLMD TRACH DNA AMP PROBE, [facility] N.GONORRHOEAE DNA AMP PROB, [facility] TRICHOMONAS VAGINALIS AMPLIF, [facility] De PREV VISIT, EST, AGE 18-39 PREV VISIT, EST, AGE 18-39 OFFICE/OUTPATIENT VISIT, EST CHYLMD TRACH DNA AMP PROBE N.GONORRHOEAE DNA AMP PROB OFFICE/OUTPATIENT VISIT, EST PREV VISIT, EST, AGE 18-39 OFFICE/OUTPATIENT VISIT, EST URINALYSIS, AUTO W/SCOPE URINE CULTURE/COLONY COUNT OFFICE/OUTPATIENT VISIT, EST URINALYSIS, AUTO W/SCOPE URINE CULTURE/COLONY COUNT PREV VISIT, EST, AGE 18-39 OFFICE/OUTPATIENT VISIT, NEW Results Test Name Date and Time Measure Units Reference Range Abnormal Flag Status Comments Panel Description: CP HBSAG,HCV,RPR,HIV Final SPECIMEN: source: Source, Unspecified RPR (DX) W/REFL TITER AND CONFIRMATORY TESTING 10:48: 38 NON-REACTIVE NON-REACTI VE N Final No laboratory evidence of syphilis. If recent exposureis suspected, submit a new sample in 2-4 weeks. Performed by:[facility] ([id number])[address] [place] [address] HEPATITIS B SURFACE ANTIGEN 10:48: 38 NON-REACTIVE NON-REACTI VE N Final Performed by:[facility] ([id number])[address] [place] [address] HEPATITIS C ANTIBODY 10:48: 38 NON-REACTIVE NON-REACTI VE N Final HCV antibody was non-reactive. There is no laboratory evidence of HCV infection. In most cases, no further action is required. However,if recent HCV exposure is suspected, a test for HCV RNA(test code 66585) is suggested. For additional information please refer tohttp://education.WrapMail/fa q/YEL23t2(This link is being provided for informational/educati onal purposes only.) Performed by:[facility] ([id number])[address] [place] [address] HIV AG/AB, 4TH GEN 10:48: 38 NON-REACTIVE NON-REACTI VE N Final HIV-1 antigen and HIV-1/HIV-2 antibodies were notdetected. There is no laboratory evidence of HIVinfection. PLEASE NOTE: This information has been disclosed toyou from records whose confidentiality may beprotected by state law. If your state requires suchprotection, then the state law prohibits you frommaking any further disclosure of the informationwithout the specific written consent of the personto whom it pertains, or as otherwise permitted by law.A general authorization for the release of medical orother information is NOT sufficient for this purpose. For additional information please refer tohttp://education.WrapMail/fa q/JIY679(This link is being provided for informational/educati onal purposes only.) The performance of this assay has not been clinicallyvalidated in patients less than 2 years old. For additional information, please refer to http://[employer].Vpon/faq/ BON040 (This link is being provided for informational/educati onal purposes only.) Performed by:[facility] ([id number])1 [place] [address] Panel Description: ADV VAG PLUS, TMA Final SPECIMEN: source: Source, Unspecified SURESWAB(R) ADV BACTERIAL VAGINOSIS (BV), TMA 16:36: 24 NOT DETECTED NOT DETECTED N Final Disclaimer : The Aptima BV assay is a FDA-cleared in vitro nucleicacid amplification test (NAAT), utilizing real time permaculture designer-mediate d amplification (TMA). This assay detects and discriminatesbetween four fluorescent signals corresponding to Lactobacillusgroup, Atopobium vaginae, Gardnerella vaginalis, and internal controlamplification products and compares signal emergence times for eachtarget organism to calibration information to determine the BVDetected or Not Detected status of each sample.Performed by:[facility] ([id number])[address] [facility] [place] [address] YUMIKO SPECIES 16:36: 24 NOT DETECTED NOT DETECTED N Final Performed by:[facility] ([id number])[address] [place] [address] [place] [address] YUMIKO GLABRATA 16:36: 24 NOT DETECTED NOT DETECTED N Final Performed by:[facility] ([id number])[address] [place] [address] [place]ITE [place] [address] TRICHOMONAS VAGINALIS (TV), TMA 16:36: 24 NOT DETECTED NOT DETECTED N Final Disclaimer : The Aptima CV/TV assay is a FDA-cleared in vitro nucleicacid amplification test (NAAT), utilizing real time permaculture designer-mediate d amplification (TMA). This assay detects and qualitativelyreports microorganisms associated with vulvovaginal candidiasis andtrichomoniasis. It tests specifically for Yumiko glabrata as well asother Yumiko species including C. albicans, C. tropicalis, C.parapsilosis, C. dubliniensis in a pooled result, and Trichomonasvaginalis. Performed by:[facility] ([id number])[address] [place] [address] [place]ITE [place] [address] CHLAMYDIA TRACHOMATIS RNA, TMA, UROGENITAL 16:36: 24 NOT DETECTED NOT DETECTED N Final Performed by:[facility] ([id number])[address] [place] [address] [place] [place] [address] NEISSERIA GONORRHOEAE RNA, TMA, UROGENITAL 16:36: 24 NOT DETECTED NOT DETECTED N Final Disclaimer : The Aptima Combo 2 Assay is an FDA-cleared targetamplification nucleic acid probe test for the in vitro qualitativedetection and differentiation of rRNA from Chlamydia trachomatis andNeisseria gonorrhea.Performed by:[facility] ([id number])[address] [place] [address] [place] [address] Advance Directives Directive Yes / No Effective Date File Name No Information Encounters Encounter Description Practice Location Reason(s) For Visit Diagnoses Date Provider OFFICE/OUTPATI ENT VISIT, [facility], [address] [facility], [address], [place], [id number], [place] tel:[phone] STD testing (chief complaint)v aginal irritation, discharge (chief complaint) Encounter for screening examination for sexually transmitted diseaseUnprotected sexual intercoursePossible exposure to STDVaginal dischargeVaginitis and vulvovaginitis, unspecified Abdon Tai. [address] [facility] [facility] [address], [facility] , [id number], [place]. tel:[phone] [facility], [address], [address], [place], [id number], [place] tel:[phone] [place] [address] High risk heterosexual behaviorEncounter for screening for infections with a predominantly sexual mode of transmissionContact with and (suspected) exposure to infections with a predominantly sexual mode of transmissionOther specified noninflammatory disorders of vaginaAcute vaginitis Tk Gandhi. [address] [facility], [address], [place], [place], [id number], [place]. tel:[phone] PREV VISIT, EST, AGE 18-39 [facility], [address], [address], [place], [id number], [place] tel:[phone] Annual Exam (chief complaint) Encounter for gynecological examination (general) (routine) without abnormal findingsEncounter for screening examination for sexually transmitted diseaseEncounter for surveillance of contraceptive pills Srinivasa De La Rosa. [address] [employer] [facility], [address], [place], [place], [id number]. tel:[phone] PREV VISIT, EST, AGE 18-39 [facility], [address], [address], [place], [id number], [place] tel:[phone] Annual Exam (chief complaint)* STI Screening (chief complaint) Encounter for gynecological examination (general) (routine) without abnormal findingsEncounter for screening examination for sexually transmitted diseaseEncounter for surveillance of contraceptive pills Srinivasa De La Rosa. [address], [place], [place], [id number]. tel:[phone] OFFICE/OUTPATI ENT VISIT, EST [facility], [address], [address], [place], [id number], [place] tel:[phone] possible UTI (chief complaint) UTI symptomsEncounter for screening examination for sexually transmitted diseaseVaginitis and vulvovaginitis, unspecified Alondar Ortega. [address], [address], [place], [id number], [place]. 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 [address] [place], [address], [place], [id number], [place]. tel:[phone] PREV VISIT, EST, AGE 18-39 [facility], [address], [address], [place], [id number], [place] tel:[phone] [address] Annual Exam (chief complaint) Encounter for gynecological examination (general) (routine) without abnormal findingsSexually transmitted disease counseling Alondra Ortega. [address] [facility] [place], [address], [place], [id number], [place]. tel:[phone] OFFICE/OUTPATI ENT VISIT, [facility], [address], [address], [place], [id number], [place] tel:[phone] [address] *vaginal itching (chief complaint) Vaginitis and vulvovaginitis, unspecifiedUTI (urinary tract infection), bacterial Alondra Ortega. [address] [place], [address], [place], [id number], [place]. tel:[phone] OFFICE/OUTPATI ENT VISIT, [facility], [address], [address], [place], [id number], [place] tel:[phone] *UTI (chief complaint) Hematuria due to acute cystitis Srinivasa De La Rosa. [address], [place], [id number]. tel:[phone] PREV VISIT, EST, AGE 18-39 [facility], [address], [address], [place], [id number], [place] tel:[phone] [address] Annual Exam (chief complaint) Encntr for communications attendant exam (general) (routine) w/o abn findingsSexually transmitted disease counseling Alondra Ortega. [address] [place], [address], [place], [id number], [place]. tel:[phone] OFFICE/OUTPATI ENT VISIT, [facility], [address], [address], [place], [id number], [place] tel:[phone] consult for becoming sexually active (chief complaint)i rregular menses (chief complaint) Irregular mensesSexually transmitted disease counselingBirth control counseling Alondra Ortega. [address], [address], [place], [id number], [place]. tel:[phone] Family History Family Member Type Diagnosis Age At Onset Father Problem (finding) cancer of colon Payers Payer name Insurance type Covered alliance party ID Authoriza tion(s) [facility] [id number] Social History Type Description Quantity Date Captured Comments Alcohol Use Details Unknown Caffeine Use Details Unknown Tobacco Use Status Current non-smoker Smoking Status Never smoker Non-Smoking Tobacco Use Details : No Details Available : No Details Available Sex Female Sexual Orientation Will Discuss With Provider Vital Signs Date / Time: Height Weight BMI Pulse Rate Blood Pressure Temperature Respiratory Rate Body Surface Area Head Circumference Head Circ. Percentile Wt./Donald. Percentile BMI percentile Pulse Ox Inhaled Ox 1:48 PM 69.00 in 66.678 kg (147.00 lbs) 21.7 1 kg/m eter (2) 112/68 mm[Hg] Chief Complaint And Reason For Visit From encounter dated '04/01/2023 13:45'. STD testing (chief complaint) vaginal irritation, discharge (chief complaint). Description: Pt notes 1 week vaginal irritation/discomfort with increase in her discharge, not malodorous. Took 1 dose Diflucan with no improvement. Has had 2 sexual partners unprotected since last STI testing, desires all STI testing today. Takes OCPs continuously, has not missed any pills History Of Present Illness Encounter Date Complaint History Of Prese nt Illness STD testing vaginal irritation, discharge Pt notes 1 week vaginal irritation/discomfort with increase in her discharge, not malodorous. Took 1 dose Diflucan with no improvement. Has had 2 sexual partners unprotected since last STI testing, desires all STI testing today. Takes OCPs continuously, has not missed any pills STD testing Annual Exam The patient stat es using oral contraceptive for control. Patient's menses is regular with normal flow. Negative for dysmenorrhea and menorrhagia. Negative for: breast discharge, breast lump(s) and breast pain. Positive for: breast self exam. Pertinent negatives include abnormal bleeding (hematology), abnormal vaginal bleeding, dyspareunia, urinary incontinence, urinary urgency, vaginal discharge and vaginal itching. Diet healthy.The patient states Patient's exercise level is moderate and frequency is 3-4 times/week. The patient does not use tobacco. Additional information: Patient presents for [employer]. She is SA, desires STI screening. Doing well on current control. Admits 10lb weight gain x 1 year.. Annual Exam The patient stat es she [...] UTIs, going to see urologist. College in [place], studying psychology and neuropsychology. . *STI Screening possible UTI Pt has a hx of f req UTI's but usually related to sex. Now home on break and developed sx's last pm of dysuria and frequency. 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 Treat based on culture resultsSend results to portal unless + STI, then will call pt Mental Status Date Cognitive Assessment Orientation - [place] ed to time, place, person, situation.
--- OUTSIDE RECORDS SUMMARY | 2023-10-09 09:11 | XMS_ITS | Clinical Summary ---
Author Organization [facility] [employer] [facility] Address [place], [place] [address] Care Team Providers Care Solder Leveler [employer]ed [employer] Boards Name Role Phone Lashonda Elizabeth DO Primary Care Provider [phone] Allergies Active Allergy Reactions Criticality Noted Date Comments Cephalosporins Hives 02/25/2021 Penicillins Hives 02/25/2021 Sulfa (Sulfonamide Antibiotics) Hives 02/11 Medications Medication Sig Dispensed Refills Start Date End Date Status fexofenadine (FOREST) 180 mg tablet Forest Active Norethindrn A-E Estradiol-Iron () 1 mg-20 mcg (24)/75 mg (4) tab Take 1 Tablet by mouth once daily. 12/04/2022 Active clonazePAM (KLONOPIN) 0.5 mg tabletIndications:Ge neralized anxiety disorder Take 1 Tablet (0.5 mg) by mouth at bedtime. 2 Tablet 02/20/2023 Active escitalopram oxalate (Lexapro) 20 mg tabletIndications:Ge neralized anxiety disorder,Major depressive disorder, recurrent, moderate (HC) Take 1 Tablet (20 mg) by mouth every morning. 90 Tablet 1 06/26/2023 Active nitrofurantoin macrocrystaL (MACRODANTIN) 50 mg capsuleIndications:F requent UTI Take 1 Capsule (50 mg) by mouth one time if needed (post-intercou rse) for up to 1 dose. 5 Capsule 2 08/17/2023 Active nitrofurantoin macrocrystals/monohy drate (MACROBID) 100 mg capsuleIndications:U TI (urinary tract infection), uncomplicated Take 1 Capsule (100 mg) by mouth two times daily for 5 days. 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 Last dx was 08/08 @ [facility]) 08/17/2023 Travel from Last 3 Months Immunizations Name Administration Dates Next Due COVID-19 vaccine ([employer] 30mcg/0.3mL) PF, MDV 08/23/2020,08/02/2020 DTaP 06/18/2005, 3,2001,10/13,2001 [...] Sign Reading Time Taken Comments Blood Pressure 126/71 09/19/2023 4:22 PM CDT Pulse 86 09/19/2023 4:22 PM CDT Temperature 36.5 ??C (97.7 ??F) 09/19/2023 4:22 PM CD T Respiratory Rate 18 09/19/2023 4:22 PM CDT Oxygen Saturation 99% 09/19/2023 4:22 PM CDT Inhaled Oxygen Concentration - - Weight 69.9 kg (154 lb) 09/19/2023 4:22 PM CDT Height 174.6 cm (5' 8.74) 11/12/2022 10:46 AM C DT Body Mass Index 22.91 11/12/2022 10:46 AM CDT Plan of Treatment Health Maintenance Due Date Last Done Comments HIV for age 15-65 2016 Chlamydia for age 16-24 2017 Hepatitis C screening for age 18-79 06/13/2019 Pap test for age 21-65 2022 COVID-19 vaccine series (5 - 2023- season) 2022 01/22/2022, 04/01/2021, 08/23/2020, Additional history [...] Procedure Name Priority Date/Time Associated Diagnosis Comments URINALYSIS MICROSCOPIC STAT 09/19/2023 4:25 PM CDT Burning with urination UA W/ SEDIMENT EXAM REFLEXED PER CRITERIA STAT 09/19/2023 4:25 PM CDT Burning with urination UA W/ SEDIMENT EXAM REFLEXED PER CRITERIA Routine 08/17/2023 10:23 AM CDT Frequent UTI from Last 3 Months Results * (ABNORMAL) URINALYSIS MICROSCOPIC (09/19/2023 4:25 PM CDT) RBC None Seen 0-2, None Seen /HPF 09/19/2023 4:50 PM CDT [facility] WBC 6-10(A) 0-2, 3-5, None Seen /HPF 09/19/2023 4:50 PM CDT [facility] BACTERIA Rare None Seen, Rare, Few Bacteria/ HPF 09/19/2023 4:50 PM CDT [facility] EPITHELIAL CELLS Few None Seen, Few Epi/HPF 09/19/2023 4:50 PM [facility] WHITE CELL CLUMPS Present(A) (none) 09/19/2023 4:50 PM [facility] Urine URINE SPECIMEN / Unknown Non-Blood / Unknown 09/19/2023 4:25 PM CDT 09/19/2023 4:35 PM CDT Lindsey Hook NP URINE [facility] [address] [place] [address] * (ABNORMAL) UA W/ SEDIMENT EXAM REFLEXED PER CRITERIA (09/19/2023 4:25 PM CDT) Only the most recent of2 resultswithin the time period is included. COLOR Yellow Yellow Color 09/19/2023 4:45 PM [facility] CLARITY Clear Clear Clarity 09/19/2023 4:45 PM [facility] SPECIFIC GRAVITY,URINE <=1.005(A) 1.010, 1.015, 1.020, 1.025 09/19/2023 4:45 PM [facility] PH,URINE 6.0 6.0, 7.0, 8.0, 5.5, 6.5, 7.5, 8.5 09/19/2023 4:45 PM [facility] UROBILINOGEN, QUALITATIVE Normal Normal EU/dl 09/19/2023 4:45 PM [facility] PROTEIN, URINE Negative Negative mg/dL 09/19/2023 4:45 PM [facility] GLUCOSE, URINE Negative Negative mg/dL 09/19/2023 4:45 PM [facility] KETONES,URINE Negative Negative mg/dL 09/19/2023 4:45 PM [facility] BILIRUBIN,URI NE Negative Negative 09/19/2023 4:45 PM [facility] OCCULT BLOOD,URINE Negative Negative 09/19/2023 4:45 PM [facility] NITRITE Negative Negative 09/19/2023 4:45 PM [facility] LEUKOCYTE ESTERASE Small(A) Negative 09/19/2023 4:45 PM CDT [facility] Urine URINE SPECIMEN / Unknown Non-Blood / Unknown 09/19/2023 4:25 PM CDT 09/19/2023 4:35 PM CDT Lindsey Hook FEED MILL OPERATOR URINE [facility] [address] [place] [address] from Last 3 Months Care Teams Solder Leveler [employer] Relationship Specialty Start Date End Date Lashonda Elizabeth DO [address] [place] [address] PCP - General Family Practice 10/16/22
== END 2023-10-07 09:19 | disposition home or self-care (01) ==
PROVIDERS: Visit Provider Nurse Practitioner
DX: R30.0 Dysuria (principal); N30.90 Cystitis, unspecified without hematuria
CPT/HCPCS: 87086; 87186

== ENCOUNTER 2024-10-08 15:39 | Emergency (ER) | payer BC, SELFPAY ==
--- OUTSIDE RECORDS SUMMARY | 2010-08-19 09:00 | XMS_ITS | Continuity of Care Document ---
Author Organization [facility] Address [address] [place] [address] Phone Care Team Providers Care Assistant Attorney General Name Role Phone Unavailable Unavailable Unavailable Advance Directives Directive Yes / No Effective Date File Name No Information Encounters Encounter Description Practice Location Reason(s) For Visit Diagnoses Date Provider Providers Copied on Encounter [facility], [address], [place], [place], [id number], tel:[phone] [place] No Information No Information Referring Provider: JUANY VILLAR [address] [facility] [address], [place], [address]. tel:[phone] Family History Family Member Type Diagnosis Age At Onset Father Problem (finding) Heart murmur as a child Paternal Grandfather Problem (finding) Rheumatic fever Payers Payer name Insurance type Covered alliance party ID Authoriza joe(s) KAYLYN SINGH MD PPO [id number] Social History Type Description Quantity Date Captured Comments Alcohol Use Details Unknown Caffeine Use Details Unknown Tobacco Use Status No Information Smoking Status No Information Sex Female Vital Signs Date / Time: Height Weight BMI Pulse Rate Blood Pressure Temperature Respiratory Rate Body Surface Area Head Circumference BMI percentile Pulse Ox Inhaled Ox 2:38 PM 57.87 in 37.000 kg (81.40 lbs) 17.0 0 kg/m eter (2) 1.22 meter(2) 3:06 PM 92 /min 105/65 mm[Hg] 16 /min 3:07 PM 115/75 mm[Hg] Chief Complaint And Reason For Visit No Information History Of Present Illness Encounter Date Complaint History Of Prese nt Illness No Information Instructions Date Instruction Additional Infor mation No Information Assessments Type Assessment Date No Information
--- OUTSIDE RECORDS SUMMARY | 2010-08-19 09:00 | XMS_ITS | Continuity of Care Document ---
Author Organization [facility] Address [address] [facility] [address] [place] [address] Phone Care Team Providers Care Molding Fitter Name Role Phone Unavailable Unavailable Unavailable Advance Directives Directive Yes / No Effective Date File Name No Information Encounters Encounter Description Practice Location Reason(s) For Visit Diagnoses Date Provider Providers Copied on Encounter [facility], [address], [place], [place], [id number], tel:[phone] [place] No Information No Information Referring Provider: JUANY VILLAR [address] [facility] [address], [place], [address]. tel:[phone] Family History Family Member Type Diagnosis Age At Onset Father Problem (finding) Heart murmur as a child Paternal Grandfather Problem (finding) Rheumatic fever Payers Payer name Insurance type Covered green party ID Authoriza joe(s) KAYLYN SINGH MD PPO [id number] Social History Type Description Quantity Date Captured [...]
--- OUTSIDE RECORDS SUMMARY | 2024-04-08 08:30 | XMS_ITS | Continuity of Care Document ---
Author Organization [facility] Address [address], [address] [place] [address] Phone Care Team Providers Care Livestock Nutrition Territory Manager Name Role Phone Tom LOBO MD, Angelica Unavailable Unavai lable Allergies, Adverse Reactions, Alerts Substance Reaction Status Criticality Cephalosporins hiveshives Active No Informatio n Sulfa (Sulfonamide Antibiotics) hiveshives Active No Information Penicillins HivesHives Active No Information Medications Medication Instructions Dosage Effective Dates (start - stop) Status Comments fluconazole 150 mg tablet take 1 tablet by oral route once 150 MG - Active Lexapro 10 mg tablet [...] 150 MG - Active Procedures Procedure Date PELVIC EXAMINATION OFFICE/OUTPATIENT VISIT, EST OFFICE/OUTPATIENT VISIT, EST NFCT DS BV RNA VAG FLU ALG, [facility] JANNETH DNA AMP PROBE, [facility] CHYLMD TRACH DNA AMP PROBE, [facility] N.GONORRHOEAE DNA AMP PROB, [facility] TRICHOMONAS VAGINALIS AMPLIF, [facility] De PREV VISIT, EST, AGE [...] Range Abnormal Flag Status Comments Panel Description: BV/VAGINITIS PANEL Final SPECIMEN: source: Source, Unspecified TRICHOMON : 10:33:18 NOT DETECTED NOT DETECTED N Final Performed by:[email or web address] ([id number])1 [place] [address] [place]: 10:33:18 NOT DETECTED NOT DETECTED N Final Performed by:[email or web address] ([id number])[address] [place] [address] JANNETH: 10:33:18 NOT DETECTED NOT DETECTED N Final Performed by:[email or web address] ([id number])[address] [place] [address] Advance Directives Directive Yes / No Effective Date File Name No Information Encounters Encounter Description Practice Location Reason(s) For Visit Diagnoses Date Provider PELVIC EXAMINATION [facility], [address], [place], [id number], [place] tel:[phone] *vaginal itching (chief complaint) Vaginitis and vulvovaginitis, unspecifiedVaginal dischargeVulvovaginal candidiasisPossible exposure to STDUnprotected sexual intercourse Tom LASHELL Christineliss. [address] [place], [address], [facility] , [id number], [place]. tel:[phone] OFFICE/OUTPATI ENT VISIT, EST [facility], [address], [place], [id number], [place] tel:[phone] Research STD testing (chief complaint)v aginal irritation, discharge (chief complaint) Encounter for screening examination for sexually transmitted diseaseUnprotected sexual intercoursePossible exposure to STDVaginal dischargeVaginitis and vulvovaginitis, unspecified Abdon Ramirezce. [address], [facility] , [id number], [place]. tel:[phone] [facility], [address], [place], [id number], [place] tel:[phone] [place] [address] High risk heterosexual behaviorEncounter for screening for infections with a predominantly sexual mode of transmissionContact with and (suspected) exposure to infections with a predominantly sexual mode of transmissionOther specified noninflammatory disorders of vaginaAcute vaginitis Tk Gandhi. [address] [facility], [address], [place], [place], [id number], [place]. tel:[phone] PREV VISIT, EST, AGE 18-39 [facility], [address] [facility] [place], [address], [place], [id number], [place] tel:[phone] Research Annual Exam (chief complaint) Encounter for gynecological examination (general) (routine) without abnormal findingsEncounter for screening examination for sexually transmitted diseaseEncounter for surveillance of contraceptive pills Srinivasa De La Rosa. [address], [address], [place], [id number]. tel:[phone] PREV VISIT, EST, AGE 18-39 [facility], [address] [facility] [place], [address], [place], [id number], [place] tel:[phone] Research Annual Exam (chief complaint)* STI Screening (chief complaint) Encounter for gynecological examination (general) (routine) without abnormal findingsEncounter for screening examination for sexually transmitted diseaseEncounter for surveillance of contraceptive pills Srinivasa De La Rosa. [address], [address], [place], [id number]. tel:[phone] OFFICE/OUTPATI ENT VISIT, [facility], [address], [address], [place], [id number], [place] tel:[phone] Research possible UTI (chief complaint) UTI symptomsEncounter for screening examination for sexually transmitted diseaseVaginitis and vulvovaginitis, unspecified Alondra Ortega. [address] [place], [address], [place], [id number], [place]. tel:[phone] OFFICE/OUTPATI ENT VISIT, [facility], [address], [address], [place], [id number], [place] tel:[phone] Research *CAMP ASSISTANT Problems (chief complaint) Vaginal lesionChronic UTI Alondra Ortega. [address], [address], [place], [id number], [place]. tel:[phone] PREV VISIT, [facility], AGE 18-39 [facility], [address], [address], [place], [id number], [place] tel:[phone] Research Annual Exam (chief complaint) Encounter for gynecological examination (general) (routine) without abnormal findingsSexually transmitted disease counseling Alondra Ortega. [address] [place], [address], [place], [id number], [place]. tel:[phone] OFFICE/OUTPATI ENT VISIT, [facility], [address], [address], [place], [id number], [place] tel:[phone] Research *vaginal itching (chief complaint) Vaginitis and vulvovaginitis, unspecifiedUTI (urinary tract infection), bacterial Alondra Ortega. [address] [place], [address], [place], [id number], [place]. tel:[phone] OFFICE/OUTPATI ENT VISIT, [facility], [address], [address], [place], [id number], [place] tel:[phone] Research *UTI (chief complaint) Hematuria due to acute cystitis Srinivasa De La Rosa. [address], [address], [place] , [id number]. 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 [address] [facility] [address], [address], [place], [id number], [place]. tel:[phone] OFFICE/OUTPATI ENT VISIT, [facility], [address], [address], [place], [id number], [place] tel:[phone] Research consult for becoming sexually active (chief complaint)i rregular menses (chief complaint) Irregular mensesSexually transmitted disease counselingBirth control counseling Alondra Ortega. [address] [facility] [address], [address], [place], [id number], [place]. tel:[phone] Family History Family Member Type Diagnosis Age At Onset Father Problem (finding) cancer of colon Payers Payer name Insurance type Covered constitution party ID Authoriza tion(s) [id number] Social History Type Description Quantity Date Captured Comments Alcohol Use Details Unknown Caffeine Use Details Unknown Tobacco Use Status No Information Smoking Status No Information Sex Female Sexual Orientation Will Discuss With Provider Chief Complaint And Reason For Visit From encounter dated '04/08/2024 13:30'. *vaginal itching (chief complaint). Description: Additional information: Patient has history of bv and yeast. Last treated for bv 2 weeks ago. Has been treated with metronidazole and clindamycin. Nowcomplains of white discharge with internal and external itching consistent with yeast. SA. No condoms. 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 Last treated for bv 2 weeks ago. Has been treated with metronidazole and clindamycin. Now complains of white discharge with internal and external itching consistent with yeast. SA. No condoms. STD testing vaginal irritation, discharge Pt notes [...] Admits 10lb weight gain x 1 year.. *STI Screening Annual Exam The patient stat [...] UTIs, going to see urologist. College in [place], studying psychology and neuropsychology. . possible UTI Pt has a hx of f req UTI's but usually related to sex. Now home on break and developed sx's last pm of dysuria and frequency. *CAMP ASSISTANT Problems The patient pres ents with a [...] her period. Instructions Date Instruction Additional Infor lemuel No Information Assessments Type Assessment Date assessment Vaginitis and vulvovaginitis, un specified assessment Vaginal discharge assessment Vulvovaginal candidiasis 2023 assessment Possible exposure to STD 2023 assessment Unprotected sexual intercourse D impression Patient with new ons et vaginal itching. Etiology is uncertain. Exam with no clinical findings of significance. Need to rule out infection vs inflammatory process. Will do cultures for infection. Will treat for presumptive yeast infection with lotrisoine and diflucan. impression did gc/chlamydia at urgent care. negative results per patient. Mental Status Date Cognitive Assessment Orientation - [place] ed to time, place, person, situation.
--- OUTSIDE RECORDS SUMMARY | 2024-04-08 08:30 | XMS_ITS | Continuity of Care Document ---
Author Organization [facility] Address [address], [address] [place] [address] Phone Care Team Providers Care Operations Expert Name Role Phone Tom LOBO MD, Angelica [...] NFCT DS BV RNA VAG FLU ALG, [facility] JANNETH DNA AMP PROBE, [facility] CHYLMD TRACH DNA AMP PROBE, [facility] N.GONORRHOEAE DNA AMP PROB, [facility] TRICHOMONAS VAGINALIS AMPLIF, [facility] De PREV VISIT, EST, AGE [...] NOT DETECTED NOT DETECTED N Final Performed by:[facility] [employer] ([id number])1 [place] [address] [place]: 10:33:18 NOT DETECTED NOT DETECTED N Final Performed by:[facility] [employer] ([id number])1 [place] [address] JANNETH: 10:33:18 NOT DETECTED NOT DETECTED N Final Performed by:[employer] ([id number])1 [place] [address] Advance Directives Directive Yes / No Effective Date File Name No Information Encounters Encounter Description Practice Location Reason(s) For Visit Diagnoses Date Provider PELVIC EXAMINATION [facility], [address], [place], [id number], [place] tel:[phone] [address] *vaginal itching (chief complaint) Vaginitis and vulvovaginitis, unspecifiedVaginal dischargeVulvovaginal candidiasisPossible exposure to STDUnprotected sexual intercourse Tom LASHELL Christineliss. [address] [place], [address], [facility] , [id number], [place]. tel:[phone] OFFICE/OUTPATI ENT VISIT, EST [facility], [address], [address], [place], [id number], [place] tel:[phone] Research STD testing (chief complaint)v aginal irritation, discharge (chief complaint) Encounter for screening examination for sexually transmitted diseaseUnprotected sexual intercoursePossible exposure to STDVaginal dischargeVaginitis and vulvovaginitis, unspecified Abdon Ramirezce. [address], [address], [facility] , [id number], [place]. tel:[phone] [facility], [address] [place], [address], [place], [id number], [place] tel:[phone] [place] [address] High risk heterosexual behaviorEncounter for screening for infections with a predominantly sexual mode of transmissionContact with and (suspected) exposure to infections with a predominantly sexual mode of transmissionOther specified noninflammatory disorders of vaginaAcute vaginitis Tk Gandhi. [address] [facility], [address], [place], [place], [id number], [place]. tel:[phone] PREV VISIT, EST, AGE 18-39 [facility], [address] [facility] [place], [address], [place], [id number], [place] tel:[phone] Research Annual Exam (chief complaint) Encounter for gynecological examination (general) (routine) without abnormal findingsEncounter for screening examination for sexually transmitted diseaseEncounter for surveillance of contraceptive pills Srinivasa De La Rosa. [address], [address], [place], [id number]. tel:[phone] PREV VISIT, EST, AGE 18-39 [facility], [address] [facility] [place], [address], [place], [id number], [place] tel:[phone] Research Annual Exam (chief complaint)* STI Screening (chief complaint) Encounter for gynecological examination (general) (routine) without abnormal findingsEncounter for screening examination for sexually transmitted diseaseEncounter for surveillance of contraceptive pills Srinivasa De La Rosa. [address], [address], [place], [id number]. tel:[phone] OFFICE/OUTPATI ENT VISIT, [facility], [address], [address], [place], [id number], [place] tel:[phone] Research possible UTI (chief complaint) UTI symptomsEncounter for screening examination for sexually transmitted diseaseVaginitis and vulvovaginitis, unspecified Alondra Ortega. [address] [place], [address], [place], [id number], [place]. tel:[phone] OFFICE/OUTPATI ENT VISIT, [facility], [address], [address], [place], [id number], [place] tel:[phone] Research *COBBLER MCKAY Problems (chief complaint) Vaginal lesionChronic UTI Alondra Ortega. [address], [address], [place], [id number], [place]. tel:[phone] PREV VISIT, [place], AGE 18-39 [facility], [address], [address], [place], [id number], [place] tel:[phone] Research Annual Exam (chief complaint) Encounter for gynecological examination (general) (routine) without abnormal findingsSexually transmitted disease counseling Alondra Ortega. [address] [place], [address], [place], [id number], [place]. tel:[phone] OFFICE/OUTPATI ENT VISIT, [facility], [address], [address], [place], [id number], [place] tel:[phone] Research *vaginal itching (chief complaint) Vaginitis and vulvovaginitis, unspecifiedUTI (urinary tract infection), bacterial Alondra Ortega. [address] [place], [address], [place], [id number], [place]. tel:[phone] OFFICE/OUTPATI ENT VISIT, [facility], [address], [address], [place], [id number], [place] tel:[phone] Research *UTI (chief complaint) Hematuria due to acute cystitis Srinivasa De La Rosa. [address], [address], [place] , [id number]. 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 [address], [address], [place], [id number], [place]. tel:[phone] OFFICE/OUTPATI ENT VISIT, [facility], [address], [address], [place], [id number], [place] tel:[phone] Research consult for becoming sexually active (chief complaint)i rregular menses (chief complaint) Irregular mensesSexually transmitted disease counselingBirth control counseling Alondra Ortega. [address], [address], [place], [id number], [place]. tel:[phone] Family History Family Member Type Diagnosis Age At Onset Father Problem (finding) cancer of colon Payers Payer name Insurance type Covered alliance party ID Authoriza tion(s) [facility] [id number] Social History Type Description Quantity Date Captured [...] with yeast. SA. No condoms. STD testing STD testing vaginal irritation, discharge Pt notes 1 week vaginal irritation/discomfort with increase in her discharge, not malodorous. Took 1 dose Diflucan with no improvement. Has had 2 sexual partners unprotected since last STI testing, desires all STI testing today. Takes OCPs continuously, has not missed any pills Annual Exam The patient stat es using [...] UTIs, going to see urologist. College in [place], studying psychology and neuropsychology. . possible UTI Pt has a hx of f req UTI's but usually related to sex. Now home on break and developed sx's last pm of dysuria and frequency. *COBBLER MCKAY Problems The patient pres ents with a [...] Mental Status Date Cognitive Assessment Orientation - [place] ed to time, place, person, situation.
--- OUTSIDE RECORDS SUMMARY | 2024-10-08 15:41 | XMS_ITS | Data Portability ---
Author Organization [facility], [facility] Address [address] [place] [address] Care Team Providers Care Candy Maker Name Role Phone ZEKE BROWN Primary Care Provider LINWOOD DESAI Referring Provider Assessment No assessment recorded. Plan of Treatment Reminders Order Date Submit Date Provider Last Modified By Organization Details Last Modified Time Details Appointments None recorded. Lab urinalysis, dipstick 2024 025 [facility], [address], [address], [address], 5 14:17:50 culture, urine 2024 025 [facility], [address], [address], [place], [address], 5 12:32:41 wet mount 2023 024 [facility], [address], [address], [place], [address], 4 17:33:23 wet mount 2023 024 [facility], [address], [address], [place], [address], 4 19:41:28 urinalysis, dipstick 2023 024 [facility], [address], [address], [place], [address], 4 11:53:34 Referral None recorded. Procedures None recorded. Surgeries None recorded. Imaging None recorded. Medication Orders Macrobid 100 mg capsule 2024 025 SHENA [facility], [facility] [place], [address], 17:05:39 metronidazo le 0.75 % (37.5 mg/5 gram) vaginal gel 2023 024 [email or web address] 1 [facility], [facility] [place], [address], 5 12:13:19 Diflucan 150 mg tablet 2023 024 [email or web address] 1 [facility], [address] [place] [address], [address], 12:12:32 Patient TargetsNo targets recorded. Patient Instructions Encounter Date Encounter Id Patient Instructions Last Modified By Organization Details Last Modified Time 03/01/2024 [id number] hx of recurrent UTIs -needs to get urine cutlure when has symtpoms -to increase fluids and maintain bowel control (control constiaption) -to start cranberry supplements (Theracran, Ellura, over the counter brand) -imaging/cysto if culture proven infections vagintiis -wet prep today, diflucan sent in fu 3 mo [email or web address] Not available 03/01/2024 11:46:41 03/17/2024 [id number] hx of recurrent UTIs -needs to get urine cutlure when has symtpoms -to increase fluids and maintain bowel control (control constipation) -to start cranberry supplements (Theracran, Ellura, over the counter brand) -imaging/cysto if culture proven infections Vaginitis -had BV last ov not yeast --will send in metrogel an dneeds to see STREET CLEANING EQUIPMENT OPERATOR for fu on this -wet prep fu prn [email or web address] Not available 03/17/2024 10:12:40 07/28/2024 [id number] uti sx --took AZO. start macrobid 100mg po BID x 7 days if sx worse to call us . also persistent pelvic pain --to make f/u apt with us or STRE[employer] CLEANING EQUIPMENT OPERATOR. [email or web address] Not available 07/28/2024 17:07:15 Reason for Referral None Reported. Results Created Date Observation Date Name Description Value Unit Range Abnormal Flag Note LastModifiedBy Organization Detail LastModifiedTime 03/01/20 24 03/01/2024 UA WITHO UT MICRO FRIDL EY color-status YELLOW yellow Not Available [facility] [address] [place] [address] [address], [place], [address], 03/01/2024 11:53:34 03/01/20 24 03/01/2024 UA WITHO UT MICRO FRIDL EY clarity-stat us CLEAR clear Not Available [facility] [address] [place] [address] [address], [place], [address], 03/01/2024 11:53:34 03/01/20 24 03/01/2024 UA WITHO UT MICRO FRIDL EY glucose-stat us NEGATI VE mg/dL negati ve Not Available [facility] [address] [place] [address] [address], [place], [address], 03/01/2024 11:53:34 03/01/20 24 03/01/2024 UA WITHO UT MICRO FRIDL EY bilirubin-ur ine NEGATI VE negati ve Not Available [facility] [address] [place] [address] [address], [place], [address], 03/01/2024 11:53:34 03/01/20 24 03/01/2024 UA WITHO UT MICRO FRIDL EY ketones-stat us NEGATI VE mg/dL negati ve Not Available [facility] [address] [place] [address] [address], [place], [address], 03/01/2024 11:53:34 03/01/20 24 03/01/2024 UA WITHO UT MICRO FRIDL EY SG-status 1.025 1.00-1 .03 Not Available [facility] [address] [facility] [address], [place], [address], 03/01/2024 11:53:34 03/01/20 24 03/01/2024 UA WITHO UT MICRO FRIDL EY pH-status 6.0 5.00-8 .00 Not Available [facility] [address] [place] [address] [address], [place], [address], 03/01/2024 11:53:34 03/01/20 24 03/01/2024 UA WITHO UT MICRO FRIDL EY protein-stat us NEGATI VE mg/dL negati ve Not Available [facility] [address] [facility] [address], [place], [address], 03/01/2024 11:53:34 03/01/20 24 03/01/2024 UA WITHO UT MICRO FRIDL EY urobilinogen -status 0.2 E.U./D L E.U./ dL 0.2 E.U./d L Not Available [facility] [address], [place], [address], 03/01/2024 11:53:34 03/01/20 24 03/01/2024 UA WITHO UT MICRO FRIDL EY nitrites-sta tus NEGATI VE negati ve Not Available [facility] [address] [place] [address] [address], [place], [address], 03/01/2024 11:53:34 03/01/20 24 03/01/2024 UA WITHO UT MICRO FRIDL EY blood-urine NEGATI VE negati ve Not Available [facility] [address] [place] [address] [address], [place], [address], 03/01/2024 11:53:34 03/01/20 24 03/01/2024 UA WITHO UT MICRO FRIDL EY leuko-status NEGATI VE negati ve Not Available [facility] [address] [place] [address] [address], [place], [address], 03/01/2024 11:53:34 03/01/20 24 03/01/2024 UA WITHO UT MICRO FRIDL EY specimen type MARY ANN LOPEZ Not Available [facility] [address] [facility] [address], [place], [address], 03/01/2024 11:53:34 03/01/20 24 03/01/2024 UA WITHO UT MICRO FRIDL EY performed by VINICIO Hewitt Not Available [facility] [address] [facility] [address], [place], [address], 03/01/2024 11:53:34 03/01/20 24 03/01/2024 UA WITHO UT MICRO FRIDL EY total urine volume (mL) 115 /mL ----- ----- ----- ----- ----- ----- ----- ----- ----- ----- ----- ----- ----- ----- ---- *Aimee brian note the follo wing minim um quant ities for addit ional urine testi ng: - Atypi cals: 3 mL - Cytol ogy: 20 mL - GC/CH : 2 mL - FISH: 30 mL - Atypi cals w/ GC/CH : 5 mL - Cytol ogy PLUS FISH: 50 mL - Urine Cultu re: 3 mL ----- ----- ----- ----- ----- ----- ----- ----- ----- ----- ----- ----- ----- ----- ---- This lab resul t is being provi ded to you and your provi greta at the same time in compl iance with the Centu ry Cures Act. Your provi greta may not have had time to revie w and make recom menda tions based on the resul t. Jovanna ventura allow up to one week for provi greta revie w. Not Available [facility] [address] [facility], [place], [address], 03/01/2024 11:53:34 03/01/20 24 03/01/2024 WET PREP wet prep cc CLUE CELLS PRESEN T no clue cells abnormal Not Available [facility] [address], [place], [address], 03/01/2024 19:41:27 03/01/20 24 03/01/2024 WET PREP wet prep trich NO MOTILE TRICHO MONAS no motile tricho monas Not Available [facility] [address] [facility] [address], [place], [address], 03/01/2024 19:41:27 03/01/20 24 03/01/2024 WET PREP wetprep WBC WBC'S PRESEN T no WBC's presen t abnormal Not Available [facility] [address], [place], [address], 03/01/2024 19:41:27 03/01/20 24 03/01/2024 WET PREP wet prep yeast NO YEAST no yeast This lab resul t is being provi ded to you and your provi greta at the same time in compl iance with the Centu ry Cures Act. Your provi greta may not have had time to revie w and make recom menda tions based on the resul t. Jovanna ventura allow up to one week for provi greta revie w. Not Available [facility] [address], [place], [address], 03/01/2024 19:41:27 03/17/20 24 03/17/2024 WET PREP wet prep cc CLUE CELLS PRESEN T no clue cells abnormal Not Available [facility] [address] [facility] [address], [place], [address], 03/17/2024 17:33:22 03/17/20 24 03/17/2024 WET PREP wet prep trich NO MOTILE TRICHO MONAS no motile tricho monas Not Available [facility] [address], [place], [address], 03/17/2024 17:33:22 03/17/20 24 03/17/2024 WET PREP wetprep WBC WBC'S PRESEN T no WBC's presen t abnormal Not Available [facility] [address], [place], [address], 03/17/2024 17:33:22 03/17/20 24 03/17/2024 WET PREP wet prep yeast NO YEAST no yeast This lab resul t is being provi ded to you and your provi greta at the same time in compl iance with the Centu ry Cures Act. Your provi greta may not have had time to revie w and make recom menda tions based on the resul t. Pleas e allow up to one week for provi greta revie w. Not Available [facility] [address], [place], [address], 03/17/2024 17:33:22 07/29/19 25 07/28/2024 UA WITHO UT MICRO FRIDL EY color-status YELLOW yellow Not Available [facility] [address], [place], [address], 07/28/2024 14:17:50 07/29/19 25 07/28/2024 UA WITHO UT MICRO FRIDL EY clarity-stat us CLEAR clear Not Available [facility] [address], [place], [address], 07/28/2024 14:17:50 07/29/19 25 07/28/2024 UA WITHO UT MICRO FRIDL EY glucose-stat us NEGATI VE mg/dL negati ve Not Available [facility] [address], [place], [address], 07/28/2024 14:17:50 07/29/19 25 07/28/2024 UA WITHO UT MICRO FRIDL EY bilirubin-ur ine NEGATI VE negati ve Not Available [facility] [address], [place], [address], 07/28/2024 14:17:50 07/29/19 25 07/28/2024 UA WITHO UT MICRO FRIDL EY ketones-stat us NEGATI VE mg/dL negati ve Not Available [facility] [address], [place], [address], 07/28/2024 14:17:50 07/29/19 25 07/28/2024 UA WITHO UT MICRO FRIDL EY SG-status 1.020 1.00-1 .03 Not Available [facility] [address], [place], [address], 07/28/2024 14:17:50 07/29/19 25 07/28/2024 UA WITHO UT MICRO FRIDL EY pH-status 6.0 5.00-8 .00 Not Available [facility] [address], [place], [address], 07/28/2024 14:17:50 07/29/19 25 07/28/2024 UA WITHO UT MICRO FRIDL EY protein-stat us 30 MG/DL mg/dL negati ve abnormal Not Available [facility] [address] [place] [address] [address], [place], [address], 07/28/2024 14:17:50 07/29/19 25 07/28/2024 UA WITHO UT MICRO FRIDL EY urobilinogen -status 0.2 E.U./D L E.U./ dL 0.2 E.U./d L Not Available [facility] [address], [place], [address], 07/28/2024 14:17:50 07/29/19 25 07/28/2024 UA WITHO UT MICRO FRIDL EY nitrites-sta tus POSITI VE negati ve abnormal Not Available [facility] [address] [place] [address] [address], [place], [address], 07/28/2024 14:17:50 07/29/19 25 07/28/2024 UA WITHO UT MICRO FRIDL EY blood-urine TRACE- LYSED negati ve abnormal Not Available [facility] [address] [place] [address], [place], [address], 07/28/2024 14:17:50 07/29/19 25 07/28/2024 UA WITHO UT MICRO FRIDL EY leuko-status LARGE negati ve abnormal Not Available [facility] [address] [place] [address], [place], [address], 07/28/2024 14:17:50 07/29/19 25 07/28/2024 UA WITHO UT MICRO FRIDL EY specimen type VOIDED Not Available [facility] [address] [place] [address] [address], [place], [address], 07/28/2024 14:17:50 07/29/19 25 07/28/2024 UA WITHO UT MICRO FRIDL EY performed by YAMILE Hewitt Not Available [facility] [address] [place] [address], [place], [address], 07/28/2024 14:17:50 07/29/19 25 07/28/2024 UA WITHO UT MICRO FRIDL EY total urine volume (mL) 10 /mL ----- ----- ----- ----- ----- ----- ----- ----- ----- ----- ----- ----- ----- ----- ---- *Plea se note the follo wing minim um quant ities for addit ional urine testi ng: - Atypi cals: 3 mL - Cytol ogy: 20 mL - GC/CH : 2 mL - FISH: 30 mL - Atypi cals w/ GC/CH : 5 mL - Cytol ogy PLUS FISH: 50 mL - Urine Cultu re: 3 mL ----- ----- ----- ----- ----- ----- ----- ----- ----- ----- ----- ----- ----- ----- ---- This lab resul t is being provi ded to you and your provi greta at the same time in compl iance with the Centu ry Cures Act. Your provi greta may not have had time to revie w and make recom menda tions based on the resul t. Jovanna ventura allow up to one week for provi greta revie w. Not Available [facility] [address] [facility] [address], [place], [address], 07/28/2024 14:17:50 07/29/19 25 07/28/2024 URINE CULTU RE final report MICROB IOLOGY RESULT S abnormal SOURC E Void KNOWN ALLER GIES see cart TREAT MENT see cart MEDIA PLATE D AT: Media plate d on 2024 @ 4:17 PM COLON Y COUNT >100, 000 cfu/m l RESUL T Esche jim a coli (Isol ate 1) Sensi tivit y Chloe sis [place] te 1 ----- ----- ----- ----- ----- ----- ----- - AMOX/ K CLAV <=8/4 *S AMPIC ILLIN >16 R CEFAZ SERENE <=2*S CEFTA ZIDIM E <=1*S CEFTR IAXON E <=1*S CEFUR OXIME <=4*S CIPRO FLOXA FRIEDA <=0.2 5*S LEVOF LOXAC IN <=0.5 *S NITRO FURAN TOIN <=32* S PIP/T AZO <=16* S TETRA CYCLI NE <=4*S TRIME TH/BURDICK LFA <=2/3 8*S Orga nisms that are susce ptibl e to tetra cycli ne are gener ally also susce ptibl e to doxyc yclin e and minoc yclin e. Any subst ituti on of drugs which have not been teste d for sensi tivit y shoul d be consi dered based on appro candy usage of the drugs . Infor kaitlin n on doxyc yclin e and minoc yclin e can be found in the Physi belinda' s Desk Refer ence or from the [facility] act[facility]. S= Susce ptibl e;I= Inter media te;R= Resis tant; ESBL= Resis tance due to confi rmed ESBL; Suspe cted ESBL= Posit anthony scree milagros only This lab resul t is being provi ded to you and your provi greta at the same time in compl iance with the Centu ry Cures Act. Your provi greta may not have had time to revie w and make recom menda tions based on the resul t. Pleas e allow up to one week for provi greta revie w. Not Available [facility] [address] [facility] [address], [place], [address], 07/30/2024 12:32:41 Result Notes None recorded. 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 Procedures Surgical History Date Name Laterality Status Provider Name and Address Organization Details Recorded Time 5 Urine Culture [facility] [address], [address], [facility] 07/28/2024 13:56:27 5 [facility] [address], [place], [address], [facility] 07/28/2024 13:56:24 5 COMPLEX VISIT cancelled Dai Laguerre MD [address], [place], [address], [facility] 05/30/2024 12:40:33 4 Past Data Reviewed completed Dai Laguerre MD [address] [place] [address],[address], [place], [address], [facility] 03/01/2024 11:27:58 4 In and Out Catheterizatio n- female completed Dai Laguerre MD [address] [place] [address],[address], [place], [address], [facility] 03/01/2024 11:45:30 Imaging Results None recorded. Procedure Notes None recorded. Medical Equipment None Reported. Allergies Allergen ID Allergen Name Allergen Category Reaction Reaction Severity Criticality Documentation Date Start Date Code Code System Note Provider Name and Address Organization Details Recorded Time 582816 Medicinal product containin g cephalosp milly and acting as antibacte rial agent (product) medicatio n hives Not available Not available 02/22/2024 [id number] [facility]ad[facility] 16:05:08 [id number] Product containin g penicilli n (product) medicatio n hives Not available Not available 02/22/2024 89782 8001 [facility] Vinicio ALFONZOjoseeladio [facility] 4 16:05:36 [id number] Substance with sulfonami de structure and antibacte rial mechanism of action (substanc e) medicatio n hives Not available Not available 02/22/2024 87920 8003 [facility] Vinicio aMckayeladio [facility] 4 16:05:50 Medications Name Sig Start Date Stop Date Status Note LastModified by Organization Details LastModified Time nitrofura ntoin macrocrys johann 50 mg capsule TAKE 1 CAPSULE BY MOUTH ONE TIME IF NEEDED FOR UP TO 1 DOSE 02/28 completed HN: Patient reports no longer taking Not Available Not Available Not Available fluconazo le 150 mg tablet Take 1 tablet every day by oral route. 05/30 completed HN: Patient reports no longer taking Not Available Not Available Not Available phenazopy ridine 200 mg tablet active Not Available Not Available Not Available metronida zole 0.75 % (37.5 mg/5 gram) vaginal gel Insert 1 applicat orful every day by vaginal route for 5 days. 05/30 completed HN: Patient reports no longer taking Not Available Not Available Not Available methylphe nidate 5 mg tablet TAKE ONE TABLET IN THE AFTERNOO N NEEDED active Not Available Not Available No t Available ciproflox acin 250 mg tablet TAKE 1 TABLET BY MOUTH TWICE DAILY FOR 7 DAYS 05/30 completed HN: Patient reports no longer taking Not Available Not Available Not Available ciproflox acin 500 mg tablet TAKE 1 TABLET BY MOUTH EVERY 12 HOURS 03/01 completed Not Available Not Available Not Available Macrobid 100 mg capsule Take 1 capsule every 12 hours by oral route for 7 days. 2024 active Not Available Not Available Not Avai lable bupropion HCl 75 mg tablet TAKE 1 TABLET BY MOUTH EVERY DAY 02/28 completed HN: Patient reports no longer taking Not Available Not Available Not Available clindamyc in 2 % vaginal cream Insert 1 applicat orful every day by vaginal route for 5 days. active Not Available Not Available No t Available escitalop kai 10 mg tablet 15 mg 1/day active Not Available Not Available No t Available escitalop kai 20 mg tablet TAKE 1 TABLET BY MOUTH EVERY DAY 02/28 completed HN: Patient reports no longer taking Not Available Not Available Not Available dapsone 5 % topical gel APPLY FOCALLY SPOT TREATMEN T TO AFFECTED AREAS ON FACE ONCE TO TWICE A DAY NEEDED DIRECTED . 02/28 completed HN: Patient reports no longer taking Not Available Not Available Not Available Aurovela 24 Fe 1 mg-20 mcg (24)/75 mg (4) tablet TAKE 1 TABLET BY MOUTH EVERY DAY active Not Available Not Available No t Available Vitals Date Recorded Body height Provider Name an d Address Organization Details Last Updated DateTime 07/28/2024 175.26 cm WILLY AABRCA [address], [place], [address], [facility] 07/28/2024 13:56:16 Date Recorded Body height Provider Name an d Address Organization Details Last Updated DateTime 07/28/2024 175.26 cm Swapna Hu [place] [facility] [place] [facility] 07/28/2024 16:19:23 Date Recorded Body mass index (BMI) Body weight Body height Provider Name and Address Organization Details Last Updated DateTime 03/01/2024 22.9 kg/m2 18010.22361 56152 g 175.26 cm Not Available Health Note 03/01/2024 11:18:09 Date Recorded Body height Provider Name an d Address Organization Details Last Updated DateTime 03/17/2024 175.26 cm Dorina Reynagae [place] [facility] 10:06:10 Social History Question Answer Notes LastModified by Organizat ion Details LastModified Time Tobacco Smoking Status Never Smoker Not Available Health Note 02/26/2024 11:35:14 Do You Have An Advance Directive? No [email or web address] Information not available 02/26/2024 What Is Your Level Of Caffeine Consumption? Occasional [email or web address] Information not available 02/26/2024 How Much Tobacco Do You Chew? None [email or web address] Information not available 02/26/2024 Race White Information no t available 02/29/2024 Ethnicity Not /Latin o Information not available 02/29/2024 Preferred Language Bulgarian Information not available 02/29/2024 Recreational Drug Use No Information not available 02/29/2024 Do You Have A Medical Power Of Backer Up? No [email or web address] Information not available 02/26/2024 What Was The Date Of Your Most Recent Tobacco Screening? 07/28/2024 [email or web address] Information not available 07/28/2024 What Is Your Relationship Status? Single [email or web address] Information not available 02/26/2024 Are You Sexually Active? Yes [email or web address] Information not available 02/26/2024 Has Tobacco Cessation Counseling Been Provided? Yes Information not available 02/29/2024 On What Date Was Tobacco Cessation Counseling Provided? 07/28/2024 Information not available 07/28/2024 How Many Days In The Past Year Have You Consumed 4 Or More Drinks? 10 [email or web address] Information no t available 02/26/2024 Sex: Unknown Functional Status Question Answer Note LastModified by Organizat ion Details LastModified Time Do you use any illicit or recreational drugs? No [email or web address] Information not available 02/26/2024 Do you or have you ever used any other forms of tobacco or nicotine? No Information not available 02/29/2024 What is your level of alcohol consumption? None Information not available 02/29/2024 Do you or have you ever used smokeless tobacco? Never used smokeless tobacco [email or web address] Information not available 02/26/2024 Do you or have you ever used e-cigarettes or vape? Never used electronic cigarettes [email or web address] Information not available 02/26/2024 Mental Status None recorded. Family History Relationship Description Onset Age of this Age Resolved Age Notes LastModified by Organization Details LastModified Time Father Family history of cancer of colon [email or web address] Not available 2023 11:35:12 Father Family history of cardiac disorder [email or web address] Not available 2023 11:35:12 Father Family history of renal stone [email or web address] Not available 02/11 11:35:12 Father Family history of malignant neoplasm of prostate 45 [email or web address] Not available 2023 11:35:12 Paternal Grandfather Family history of cardiac disorder [email or web address] Not available 2023 11:35:12 Mother Family history of renal stone [email or web address] Not available 02/11 11:35:12 Medical History Condition Response High Blood Pressure N Kidney Stones N Depression Y Sexually Transmitted Infection N Cancer N Bleeding Disorder N Lung Disease N GERD/Acid Reflux N High Cholesterol N Diabetes N Heart Disease N Gynecological History Statement/Question Response Irregular periods N Leaking urine with intercourse N Heavy periods N Sexually Active? Y Pain with intercourse Y Obstetrics History GPAL:G 0 P 0 0 0 0 Immunizations Vaccine Type Date Status Note Provider Nam e and Address Organization Details Recorded Time influenza, unspecified formulation 4 completed Not Available Health Note 02/26/2024 11:35:16 SARS-COV-2 (COVID-19) vaccine, UNSPECIFIED 3 completed Not Available Health Note 02/26/2024 11:35:16 COVID-19, mRNA, LNP-S, PF, 30 mcg/0.3 mL dose 1 completed Vinicio LJohnson null, [facility] 03/01/2024 11:28:19 COVID-19, mRNA, LNP-S, PF, 30 mcg/0.3 mL dose 1 completed Vinicio LJohnson null, [facility] 03/01/2024 11:28:19 COVID-19, mRNA, LNP-S, bivalent, PF, 30 mcg/0.3 mL dose 2 completed Vinicio LJohnson null, [facility] 03/01/2024 11:28:19 Influenza, split virus, quadrivalent, PF 3 completed Vinicio LJohnson null, [facility] 03/01/2024 11:28:19 Influenza, split virus, quadrivalent, PF 2 completed Vinicio LJohnson null, [facility] 03/01/2024 11:28:19 Influenza, split virus, quadrivalent, PF 1 completed Vinicio LJohnson null, [facility] 03/01/2024 11:28:19 Influenza, MDCK, trivalent, PF 4 completed Not Available [facility] 07/28/2024 16:20:02 Past Encounters Encounter ID Performer Location Encounter Start Date Encounter Closed Date Diagnosis/Indication Diagnosis SNOMED-CT Code Diagnosis ICD10 Code Diagnosis Note [id number] Dai Laguerre MD [address] [facility] [place] [address] 03/01/2024 11:16:39 03/01/2024 11:54:18 Recurrent urinary tract infection 043911670 N39.0 new Vaginitis 29912367 N76.0 new [id number] Dai Laguerre MD [facility] [address] [facility] [place] [address] 03/17/2024 10:03:10 03/17/2024 12:02:57 Recurrent urinary tract infection 306233333 N39.0 chronic stable Vaginitis 06102742 N76.0 new [id number] [facility] [address] [facility] [place] [address] 07/28/2024 13:44:46 08/03/2024 03:59:26 Recurrent urinary tract infection 282383936 N39.0 chronic stable [id number] Dai [facility] [address] [facility] [place] [address] 07/28/2024 16:18:29 08/02/2024 18:15:38 Acute urinary tract infection 662825181 N39.0 new Health Concerns Section Related Observation LastModified by Organization Detai ls LastModified Time None Recorded Concern Status LastModified by Organization Details LastModified Time None Recorded Advance Directives Directive N: Payers Insurance Date Sequence Insurance Name Policy Number Policy Cabral Covered Member ID Cabral Member ID Guarantor Name 07/28/2024 1 [place] [employer] [id number] Nestor Jose Sunny [id number] Usha Sunny Notes Date Note Type Note Provider Name and Address Organization Details Recorded Time 4 text/html 23 yo F here for rutis states 6-10 infections for the pat few years, concerned about atb resistance. uti sx are: dysuria, lower abd pain and tenderness. urgency, rare blood in urine, no hospitalizations drinking more water and voiding after relations no relation with intercourse per seBMs: daily, no FI--some constipated, harder stool. has not been on stool softers no hx of stones, but thinks maybe she had one. lives in [place] 9-30 nothing done; was given macrobid no culture.6-8 6-10 wbc no rbc no ucx5-6-24 ua negative2-12 wet prep yeast2-6-24 ucx negative 10-16-[address] 04-19-21 Hopinks ((had salmonella))Lung bases are clear. No pleural effusion.Right simple renal cyst. Liver, gallbladder, pancreas, spleen, adrenal glands, left kidney, visualized ureters, bladder, uterus and bilateral adnexa are normal.The appendix is normal. There is significant bowel wall edema of the right colon, image 91/series 7 and proximal transverse colon, image 21/series 6. No bowel obstruction. Minimal free fluid in the pelvis.Hepatic and mesenteric vasculature is patent areas no adenopathy. No suspicious osseous lesions. Chief complaint:Recurrent UTI Recurrent UTIs:Diagnosed:4 Years agoHistory of:30 UTI's in the pastPrior treatment:40 courses of antibioticsAssociated symptoms:Abdominal Pain, Fever, Chills, Pain with urination, Blood in urine, Trouble starting to urinateWorse with:Alcohol, Caffeine (coffee, soda etc.), Stress, OTHERBetter with:Avoiding alcohol, Avoiding caffeine (coffee, soda etc.), Increased fluid intake, Reducing stress, OtherSeverity:severeInterf erence with life:SubstantialProgressio n:getting worse overall Overactive Bladder Pathway Questionnaire:Uses the restroom:5times per day Uses the restroom (daytime): [id number] Uses the restroom (nighttime): 1 (feels pressured at night--and hesitancy)--stops fluids till bedtime. Accidents:0per day Pads: [id number] daydaytime stream is described as slower over time. sexually active, sometimes pain with relationsno sx of uti today at all no numbenss/tingling. no back issues. no visiion or gait issuesno fhx of MS. Urogenital Distress Inventory (SUNNY-6):[1] Frequent urination:Slightly[0] Urine leakage related to the feeling of urgency:Not at All[0] Urine leakage related to physical activity, coughing or sneezing:Not at All[0] Small amounts of urine leakage (drops):Not at All[1] Difficulty emptying your bladder:Slightly[1] Pain or discomfort in the lower abdominal or genital area:Slightly Incontinence Impact Questionnaire (IIQ-7):[0] Ability to do commercial designer (cooking, housecleaning):Not at All[0] Physical recreation such as walking, or other exercise:Not at All[0] Ability to attend entertainment activities (movie, concerts):Not at All[0] Ability to travel by car more than 30 minutes from home:Not at All[0] Participation in social activities outside your home:Not at All[0] Emotional health (nervousness, depression, etc):Not at All[0] Stanton frustrated:Not at All Dai Laguerre MD [address] [facility],[address], [place], [address], [place] [facility] [place] [facility] 03/01/2024 11:47:16 4 text/html 23 yo F here for rutis states 6-10 infections for the pat few years, concerned about atb resistance. uti sx are: dysuria, lower abd pain and tenderness. urgency, rare blood in urine, no hospitalizations drinking more water and voiding after relations no relation with intercourse per seBMs: daily, no FI--some constipated, harder stool. has not been on stool softers no hx of stones, but thinks maybe she had one. lives in [place] 01-10 nothing done; was given macrobid no culture.6-8 6-10 wbc no rbc no ucx5-6-24 ua negative2-12 wet prep yeast2-6-24 ucx negative 10-16-[address] 04-19-21 Hopinks ((had salmonella))Lung bases are clear. No pleural effusion.Right simple renal cyst. Liver, gallbladder, pancreas, spleen, adrenal glands, left kidney, visualized ureters, bladder, uterus and bilateral adnexa are normal.The appendix is normal. There is significant bowel wall edema of the right colon, image 91/series 7 and proximal transverse colon, image 21/series 6. No bowel obstruction. Minimal free fluid in the pelvis.Hepatic and mesenteric vasculature is patent areas no adenopathy. No suspicious osseous lesions. Chief complaint:Recurrent UTI Recurrent UTIs:Diagnosed:4 Years agoHistory of:30 UTI's in the pastPrior treatment:40 courses of antibioticsAssociated symptoms:Abdominal Pain, Fever, Chills, Pain with urination, Blood in urine, Trouble starting to urinateWorse with:Alcohol, Caffeine (coffee, soda etc.), Stress, OTHERBetter with:Avoiding alcohol, Avoiding caffeine (coffee, soda etc.), Increased fluid intake, Reducing stress, OtherSeverity:severeInterf erence with life:SubstantialProgressio n:getting worse overall Overactive Bladder Pathway Questionnaire:Uses the restroom:5times per day Uses the restroom (daytime): [id number] Uses the restroom (nighttime): 1 (feels pressured at night--and hesitancy)--stops fluids till bedtime. Accidents:0per day Pads: [id number] daydaytime stream is described as slower over time. sexually active, sometimes pain with relationsno sx of uti today at all no numbenss/tingling. no back issues. no visiion or gait issuesno fhx of MS. Urogenital Distress Inventory (SUNNY-6):[1] Frequent urination:Slightly[0] Urine leakage related to the feeling of urgency:Not at All[0] Urine leakage related to physical activity, coughing or sneezing:Not at All[0] Small amounts of urine leakage (drops):Not at All[1] Difficulty emptying your bladder:Slightly[1] Pain or discomfort in the lower abdominal or genital area:Slightly Incontinence Impact Questionnaire (IIQ-7):[0] Ability to do commercial designer (cooking, housecleaning):Not at All[0] Physical recreation such as walking, or other exercise:Not at All[0] Ability to attend entertainment activities (movie, concerts):Not at All[0] Ability to travel by car more than 30 minutes from home:Not at All[0] Participation in social activities outside your home:Not at All[0] Emotional health (nervousness, depression, etc):Not at All[0] Stanton frustrated:Not at All 12-5-24sx did clear up and then more itchying and discomofrt Overactive Bladder Pathway Questionnaire:Uses the restroom:6times per day Uses the restroom (daytime): [id number] Uses the restroom (nighttime): [id number] Accidents:0per day Pads: [id number] day Happy with current treatment plan:ajith Urogenital Distress Inventory (SUNNY-6):[1] Frequent urination:Slightly[0] Urine leakage related to the feeling of urgency:Not at All[0] Urine leakage related to physical activity, coughing or sneezing:Not at All[0] Small amounts of urine leakage (drops):Not at All[2] Difficulty emptying your bladder:Moderately[1] Pain or discomfort in the lower abdominal or genital area:Slightly Incontinence Impact Questionnaire (IIQ-7):[0] Ability to do commercial designer (cooking, housecleaning):Not at All[0] Physical recreation such as walking, or other exercise:Not at All[0] Ability to attend entertainment activities (movie, concerts):Not at All[0] Ability to travel by car more than 30 minutes from home:Not at All[0] Participation in social activities outside your home:Not at All[0] Emotional health (nervousness, depression, etc):Not at All[0] Stanton frustrated:Not at All Dai Laguerre MD [address] [place] [address],[address], [address], [facility] 03/17/2024 10:13:11 5 text/html Current patient location: [place] Current MD/ADAMARIS location: [place] HIPAA compliant platform used: [facility] Prior to conducting our video visit, the patient was apprised of the risks, benefits and alternatives to video visits including but not limited to poor video quality, interrupted visits due to technological limitations, delays in medical evaluation and treatment due to deficiencies or failures of equipment, failure of security protocols resulting in a breach of privacy of personal medical information and a lack of access to complete medical records resulting in not fully informed decisions. It was not possible for the patient to sign the privacy regulations, HIPAA release and assignment of benefits forms. The patient was given the opportunity to ask questions about these policies and gave verbal acknowledgement and approval of these policies as well as to hold this meeting by video. Lastly, the patient agreed to allowing their medication history to be pulled from a national pharmacy database to facilitate and coordinate their care. Called with UTIsx: UA + today last 2 weeks--had 1 days of pain with UTI sx and takes motrin/water and azo and then in alot of pain. took azo today. Hx of recurrent BV in feb/mar Dai Laguerre MD [address] [place] [address],[address] [place] [address], [phone], [facility] 07/28/2024 17:07:28 OBGyn Episode No OBEpisode recorded.
--- OUTSIDE RECORDS SUMMARY | 2024-10-08 15:41 | XMS_ITS | Clinical Summary ---
Author Organization [employer] [facility] Address [address] [place] [id number] Care Team Providers Care Real Estate Consultant Name Role Phone Lashonda Elizabeth DO Primary Care Provider Allergies Active Allergy Reactions Criticality Noted Date Comments Cephalosporins Hives 02/25/2021 Penicillins Hives 02/25/2021 Sulfa (Sulfonamide Antibiotics) Hives 02/11 Medications fexofenadine (FOREST) 180 mg tablet Forest Active escitalopram oxalate (Lexapro) 10 mg tabletIndications:G eneralized anxiety disorder,Major depressive disorder, recurrent, moderate (HC) Take 1 Tablet (10 mg) by mouth once daily in the morning. To be taken with 5 mg tablet to total 15 mg 90 Tablet 3 5 Active escitalopram oxalate 5 mg tabletIndications:G eneralized anxiety disorder,Major depressive disorder, recurrent, moderate (HC) Take 1 Tablet (5 mg) by mouth once daily in the morning. To be taken with 10 mg tablet to total 15 mg 90 Tablet 3 5 Active Norethindrn A-E Estradiol-Iron () 1 mg-20 mcg (24)/75 mg (4) tabIndications:Surv eillance for control, oral contraceptives Take 1 Tablet by mouth once daily. 84 Tablet 3 5 Active clonazePAM 0.5 mg tabletIndications:G eneralized anxiety disorder,Panic anxiety syndrome Take 1 Tablet (0.5 mg) by mouth at bedtime if needed for Sleep or Anxiety. 7 Tablet 5 Active methylphenidate HCl (Ritalin LA) 10 mg SR capsuleIndications: Attention deficit hyperactivity disorder (ADHD), predominantly inattentive type Take 1 Capsule (10 mg) by mouth once daily. 30 Capsule 5 10/23/19 25 Active methylphenidate HCl (Ritalin LA) 10 mg SR capsuleIndications: Attention deficit hyperactivity disorder (ADHD), predominantly inattentive type Take 1 Capsule (10 mg) by mouth once daily. 30 Capsule 5 Active methylphenidate HCl (Ritalin LA) 10 mg SR capsuleIndications: Attention deficit hyperactivity disorder (ADHD), predominantly inattentive type Take 1 Capsule (10 mg) by mouth once daily. 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 Encounters Date Type Department Care Team Description 09/28/2024 Refill [facility] [address] [place] [address] Lashonda Elizabeth, DO Refill Request (Aurovela ) 08/23/2024 10:10 AM CDT Office Visit [facility] [address] [place] [address] Lashonda Elizabeth, DO Medication Management (Lexapro - going well, discuss Klonopin and Ritalin); STD (screening); Vaginal Discharge (Itching and discharge x1 week) 08/23/2024 Travel 08/18/2024 Travel 08/07/2024 Refill [facility] [address] [place] [address] Clara Lashonda Frances, DO Refill Request (Escitalopram Oxalate, Escitalopram Oxalate) from Last 3 Months Immunizations Immunization Administration Dates Next Due COVID-19 vaccine (Revelation 30mcg/0.3mL) PF, MDV 08/23/2020,08/02/2020 DTaP 06/18/2005, 3,2001,10/13,2001 HPV 9 (Gardasil 9) 05/26/2016,01/23/2016, 016 Hepatitis A (Peds),Unspecified 06/28/2009,2008 Hepatitis B, Unspecified 03/15/2002,2001,0 2001 Hib Conjugate, Unspecified 09/13/2002,,2001,08/12 Inactivated Polio Vaccine 06/18/2005,06/2001,2001,08/12 Influenza, CCIIV3 (Age >=6 M O) (Egg Free) 01/27/2024 Influenza, IIV4 01/15/2023,01/22/2022,01/24/2021 MENINGOCOCCAL VACCINE 2 VIAL [id number] (MENVEO) 02/02/2018,10/30/2011 MMR 06/18/2005,06/14/2002 Meningococcal B 03/19/2020,10/21/2019 Pneumococcal conj 7-Valent (Prevnar 7) 0 09/13/2002,2001,2001,08/12 Tdap 11/15/2019,10/30/2011 Varicella Vaccine 06/19/2006,06/14/2002 Social History Tobacco Use Types Packs/Day Years Used Date Smoking Tobacco: Former Cigarettes Smokeless Tobacco: Never Tobacco Cessation:Counseling Given: Not Answered Alcohol Use Standard Drinks/Week Comments Yes 0 (1 standard drink = 0.6 oz pur e alcohol) weekends PHQ-2 Answer Date Recorded PHQ-2 TOTAL SCORE 2 08/23/2024 Social Connections Answer Date Recorded Do you often feel lonely or isolated from those around you? 0 08/17/2023 Financial Resource Strain Answer Date R ecorded Difficulty of Paying Living Expenses 3 08/17/2023 Difficulty of Paying Living Expenses Not on file 08/17/2023 Food Insecurity Answer Date Recorded Do you worry your food will run out before you are able to buy more? 1 08/17/2023 Transportation Needs Answer Date Record ed Does lack of transportation keep you from medica l appointments? 1 08/17/2023 Does lack of transportation keep you from work, meetings or getting things that you need? 1 08/17/2023 Housing Stability Answer Date Recorded What is your housing situation today? 1 08/17/2023 Utilities Answer Date Recorded Do you have trouble paying f or utilities (for example, heat, electricity, water, phone)? 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 Gender Identity Not on file Sexual Orientation Not on file Obstetrics History Last Filed Vital Signs Vital Sign Reading Time Taken Comments Blood Pressure 108/75 08/23/2024 10:06 AM CDT Pulse 86 08/23/2024 10:06 AM CDT Temperature 36.5 C (97.7 F) 09/19/2023 4:22 PM CDT Respiratory Rate 18 09/19/2023 4:22 PM CDT Oxygen Saturation 98% 08/23/2024 10: 06 AM CDT Inhaled Oxygen Concentration - - Weight 70.7 kg (155 lb 14.4 oz) 025 10:06 AM CDT Height 175 cm (5' 8.9) 01/11/2024 1:07 PM CDT Body Mass Index 23.09 01/11/2024 1:07 PM CDT Plan of Treatment Health Maintenance Due Date Last Done Comments HIV for age 15-65 2016 Hepatitis C screening for age 18-79 06/13/2019 COVID-19 vaccine series ( season) 2023 01/22/2022, 04/01/2021, 08/23/2020, Additional history exists BMI (ht and wt on same day) for age 18+ 01/10/2025 01/11/2024, 11/17/2023, 11/12/2022 Chlamydia for age 16-24 08/23/2025 08/23/2024 Depression screening for age 12+ 08/23/2025 08/23/2024, 01/11/2024, 11/17/2023, Additional history exists Pap test for age 21-65 11/25/2025 3 (Completed [facility]) Tetanus booster 11/14/2029 11/15/2019, 10/30/2011 Hepatitis B series for 19+ Completed 03/15, 2001, 2001 Pneumococcal series for age 6-49 Aged Out 09/13/2002, 2001, 2001, Additional history exists No longer eligible based on patient's age to complete this topic HPV series for age 9-26 Completed 05/26/19 17, 01/23/2016, 11/21/2015 Tdap Completed 11/15/2019, 10/30/2011 Influenza Vaccine Completed 01/27/2024, , 01/22/2022, Additional history exists Procedures Procedure Name Priority Date/Time Associated Diagnosis Comments TRICHOMONAS, JANNETH, AND BACTERIAL VAGINOSIS BY JORGE Routine 08/23/2024 10:44 AM CDT Vaginal itching Vaginal discharge GC CHLAMYDIA TRACH PROBE Routine 08/23/2024 10:44 AM CDT Vaginal itching Vaginal discharge from Last 3 Months Results * (ABNORMAL) TRICHOMONAS, JANNETH, AND BACTERIAL VAGINOSIS BY JORGE (08/23/2024 10:44 AM CDT) JANNETH SPECIES Negative Negative 10:53 AM CDT [facility] JANNETH GLABRATA Negative Negative 08/24/2024 10:53 AM CDT [facility] TRICHOMONAS VVA Negative Negative 10:53 AM CDT [facility] BACTERIAL VAGINOSIS Positive(A) Negative 08/24/2024 10:53 AM CDT [facility] Other VAGINAL SWAB / Unknown Non-Blood / Unknown 08/23/2024 10:44 AM CDT 08/23/2024 10:44 AM CDT us Lashonda Elizabeth DO MICROBIOLOGY Final Result [facility] [address] [place] [address], * GC & CHLAMYDIA DNA PCR [[id number]] (08/23/2024 10:44 AM CDT) CHLAMYDIA PROBE Negative 8:50 PM CDT [facility] N GONORRHOEAE PROBE Negative 08/23/2024 8:50 PM CDT [facility] Other VAGINAL SWAB / Unknown Non-Blood / Unknown 08/23/2024 10:44 AM CDT 08/23/2024 10:44 AM CDT Lashonda Elizabeth DO MICROBIOLOGY Final Result [facility] [address] [place] [address], [place] from Last 3 Months Insurance [facility] Care Teams Real Estate Consultant Relationship Specialty Start Date End Date Lashonda Elizabeth DO [address] [place] [address] PCP - General Family Practice 10/16/22
--- OUTSIDE RECORDS SUMMARY | 2024-10-08 15:41 | XMS_ITS | Clinical Summary ---
Author Organization [facility] Address [address] [place], [place] [address] Care Team Providers Care Dietist Name Role Phone Allyssa Bess MD Primary Care Provider + Allergies Active Allergy Reactions Criticality Noted Date Comments Cephalosporins Hives,Unknown Medium 02/25/2021 Penicillins Hives Medium 02/25/2021 Sulfa (Sulfonamide Antibiotics) Hives Medium 02/11 Medications escitalopram oxalate (LEXAPRO ORAL) Take 15 mg by mouth. Active norethindrone-e.e stradioL-iron (Junel Fe 24) 1 mg-20 mcg (24)/75 mg (4) Tab Take by mouth daily. 1 Active fexofenadine (FOREST) 180 MG tablet Forest Active methylphenidate HCl (RITALIN LA) 10 MG 24 hr capsule TAKE ONE CAPSULE BY MOUTH EVERY DAY IN THE MORNING 2 Active nitrofurantoin monohydrate macrocrystal (MACROBID) 100 MG capsule Take by mouth. Active Active Problems Problem Noted Date Diagnosed Date Recurrent UTI (urinary tract infection) 08/31/19 23 Anxiety and depression 11/04/2021 Pollen allergy 11/04/2021 Vegetarian diet 11/04/2021 Resolved Problems Problem Noted Date Diagnosed Date Resolved Date Weight loss 11/04/2021 08/30/2022 Immunizations Immunization Administration Dates Next Due DTaP (INFANRIX) 06/18/2005, 3,2001,10/13,2001 HPV9 (GARDASIL 9) 05/26/2016,01/23/2016,11/21/19 16 Hep A (Pediatric, Unspecifie d Formulation) 06/28/2009,06/20/2008 Hep B (Unspecified Formulation) 03/15/2002,12/17,2001 HiB (ActHib/HIBERIX) 09/13/2002,12/18/19 02,2001,08/12 IPV (IPOL) 06/18/2005, 2,2001,08/12 Influenza, Inj, Quadrivalent , Preservative Free 01/24/2021 Influenza, injectable, quadr ivalent, preservative free 02/02/2018 Influenza, seasonal (Injectable) 01/23/2016 Influenza, seasonal, injecta ble, preservative free 03/25/2017,04/27/2012 MENINGOCOCCAL-MCV4O(MENVEO) 02/02/2018, 2 MMR (MMR II) 06/18/2005,06/14/2002 Meningococcal B, OMV (BEXSERO) 03/19/2020,2019 [place] 12+ YR PURPLE CAP (mu st dilute) SARS-COV-2 (COVID-19) vaccine, mRNA, 30mcg/0.3mL dose 08/20/2020 PNEUMOCOCCAL CONJUGATE 7-VALENT 09/14/19 03,2001,2001,08/12 Tdap 11/15/2019,10/30/2011 Varicella (VARIVAX) 06/19/2006,06/14/2002 influenza, injectable, quadr ivalent, contains preservative 03/07/2019,05/01/2013 Family History Medical History Relation Name Comments Colon polyps Father Hyperlipidemia Father Lung cancer Maternal Grandfather Hyperlipidemia Paternal Grandfather Rheumatic fever Paternal Grandfather Heart disease Paternal Grandmother Relation Name Status Comments Father Maternal Grandfather Paternal Grandfather Paternal Grandmother Social History Tobacco Use Types Packs/Day Years Used Date Smoking Tobacco: Never Smokeless Tobacco: Never Alcohol Use Standard Drinks/Week Comments Never 0 (1 standard drink = 0.6 oz pur e alcohol) AUDIT-C Answer Date Recorded Q1: How often do you have a drink containing alc ohol? Never 04/20/2021 Q2: How many drinks containi ng alcohol do you have on a typical day when you are drinking? 1 or 2 04/20/2021 Q3: How often do you have six or more drinks on one occasion? Never 04/20/2021 PHQ-2 Answer Date Recorded PHQ-2 Total Score 3 11/05/2021 Interpersonal Violence Answer Date Jp rded Interpersonal Violence No 3 Comments No Sex and Gender Information Value Date Recorded Sex Assigned at Not on file Legal Sex Female 3:51 PM EDT Gender Identity Not on file Sexual Orientation Not on file Last Filed Vital Signs Vital Sign Reading Time Taken Comments Blood Pressure 133/74 11/05/2021 10:48 PM EDT Pulse 72 09/04/2022 9:56 AM EDT Temperature 36.4 C (97.6 F) 09/04/2022 9:56 AM EDT Respiratory Rate 18 09/04/2022 9:56 AM EDT Oxygen Saturation 98% 11/05/2021 10:48 PM EDT Inhaled Oxygen Concentration - - Weight 63.5 kg (140 lb) 09/04/2022 9:56 AM EDT Height 175.3 cm (5' 9) 11/05/2021 10:48 PM EDT Body Mass Index 20.67 11/05/2021 10:48 PM EDT Plan of Treatment Health Maintenance Due Date Last Done Comments COVID-19 VACCINE ( season) 2023 04/01/2021, 08/23/2020, 08/20/2020, Additional history exists STI (CHLAMYDIA) SCREENING 04/01/20242022, 12/04/2022, 12/04/2021, Additional history exists DEPRESSION SCREENING 04/13/2024 11/05/2021, 11/06/19 INFLUENZA VACCINE (Season Ended) 2024 01/24/2021, 03/07/2019, 02/02/2018, Additional history exists CERVICAL CANCER SCREENING 12/04/2025 12/04/2022 DTAP/TDAP/TD VACCINES (8 - Td or Tdap) 11/14/2029 11/15/2019, 10/30/2011, 06/18/2005, Additional history exists HEPATITIS B VACCINES Completed 03/15/2002, 2001, 2001 PNEUMOCOCCAL VACCINES Aged Out 09/13/2002 , 2001, 2001, Additional history exists No longer eligible based on patient's age to complete this topic HEPATITIS A VACCINES Completed 06/28/2009, 06/21/19 09 HPV VACCINES Completed 05/26/2016, 01/11, 11/21/2015 HIV SCREEN Completed 04/01/2023 Insurance [facility]/SH FEP STANDARD PPO [facility]/ FEP STANDARD PPO BLUE /SH FEP STANDARD PPO [facility] [place] [id number] BLUE /SH FEP STANDARD PPO BLUE CR/SH FEP STANDARD PPO BLUE CR/SH FEP STANDARD PPO BLUE CR/SH FEP STANDARD PPO BLUE CR/SH FEP STANDARD PPO BLUE CR/SH FEP STANDARD PPO BLUE CR/SH FEP STANDARD PPO Care Teams Dietist Relationship Specialty Start Date End Date Allyssa Bess MD [address] [address] PCP - General Pediatrics 09/04/22
--- OUTSIDE RECORDS SUMMARY | 2024-10-08 15:41 | XMS_ITS | Patient Health Record ---
Author Organization [facility] Address [address] [place] [address] MD GALI [id number] Support Name Relationship Address Phone JEREMI CORREA Guarantor Unknown [phone] Reason For Referral No Information Medications Medication SIG (Take, Route, Frequency, Duration) Notes Start Date End Date Status Escitalopram Oxalate 10 MG Oral; Duration: 0 ; SourceRx: Escitalopram Oxalate 10 MG Oral Tablet; SourceStatus:Active *Pick strength-form from [employer] for eRX* 04/10/2022 Active Methylphenidate HCl ER (LA) 10 MG Oral; Duration: 0 ; SourceRx: Methylphenidate HCl ER (LA) 10 MG Oral Capsule Extended Release 24 Hour; SourceStatus:Active *Pick strength-form from [employer] for eRX* 04/10/2022 Active Medrol 4 MG 1 (one) Oral as directed; Duration: 6 Take all at once after breakfast each day ; SourceRx: Medrol 4 MG Oral Tablet Therapy Pack; SourceStatus:Active 04/10/2022 Active Forest Allergy 180 MG Oral; Duration: 0 ; SourceRx: FOREST ALLERGY, 180MG (Oral Tablet); SourceStatus:Active *Pick strength-form from [employer] for eRX* 11/27/2016 Active Problems Problem Type SNOMED Code ICD Code Onset Dates Problem Status W/U Status Risk Notes Problem Pain in eye (88982435) Ocular pain, unspecified eye (H57.10) Active confirmed Problem Eustachian tube disorder (12401342) Unspecified Eustachian tube disorder, bilateral (H69.93) Active confirmed Problem Acute sinusitis (02820576) Acute sinusitis, unspecified (J01.90) Active confirmed Problem Acute pharyngitis (939086260) Acute pharyngitis, unspecified (J02.9) Active confirmed Problem Title:Acute pharyngitis Problem Acute upper respiratory infection (30948374) Acute upper respiratory infection, unspecified (J06.9) Active confirmed Problem Allergic rhinitis caused by pollen (disorder) (49078819) Allergic rhinitis due to pollen (J30.1) Active confirmed Problem Allergic rhinitis caused by animal hair and dander (3630364329006 09) Allergic rhinitis due to animal (cat) (dog) hair and dander (J30.81) Active confirmed Problem Allergic rhinitis (35507249) Other allergic rhinitis (J30.89) Active confirmed Problem Chronic sinusitis (31338672) Chronic sinusitis, unspecified (J32.9) Active confirmed Problem Recurrent oral aphthae (133386218) 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
--- OUTSIDE RECORDS SUMMARY | 2024-10-08 15:41 | XMS_ITS ---
Author Name [facility] Organization Unknown Results Test Name/Text Value Interpretation Date Range Source Yumiko rRNA Vag Ql Probe NOT DETECTED Normal 04/09/2024 - [facility] G vaginalis rRNA Genital Ql Probe NOT DETECTED Normal 04/09/2024 - [facility] T vaginalis rRNA Genital Ql Probe NOT DETECTED Normal 04/09/2024 - [facility] N gonorrhoea rRNA Spec Ql JORGE+probe NOT DETECTED Normal 04/03/2023 - [facility] C glabrata RNA Vag Ql JORGE+probe NOT DETECTED Normal 04/03/2023 - [facility] T vaginalis rRNA Spec Ql JORGE+probe NOT DETECTED Normal 04/03/2023 - [facility] BV bacteria rRNA Vag Ql JORGE+probe NOT DETECTED Normal 04/03/2023 - [facility] C trach rRNA Spec Ql JORGE+probe NOT DETECTED Normal 04/03/2023 - [facility] Yumiko rRNA Vag Ql Probe NOT DETECTED Normal 04/03/2023 - [facility] HCV Ab SerPl Ql IA NON-REACTIVE Normal 04/02/2023 - [facility] RPR Ser Ql NON-REACTIVE Normal 04/02/2023 - [facility] HBV surface Ag SerPl Ql IA NON-REACTIVE Normal 04/02/2023 - [facility] HIV 1+2 Ab+HIV1 p24 Ag SerPl Ql IA NON-REACTIVE Normal 04/02/2023 - [facility] C trach rRNA Spec Ql JORGE+probe NOT DETECTED Normal 12/05/2022 - [facility] T vaginalis rRNA Spec Ql JORGE+probe NOT DETECTED Normal 12/05/2022 - [facility] N gonorrhoea rRNA Spec Ql JORGE+probe NOT DETECTED Normal 12/05/2022 - [facility] Date of previous PAP NONE GIVEN Normal 12/08/2022 [facility] Animal Behaviorist Cvx/Vag Cyto Normal 12/08/2022 [facility] Clinical info Normal exam Normal 12/08/[address] Date previous bx NONE GIVEN Normal 12/08/2022 Q [facility] Specimen source Cvx/Vag Cyto Cervix, Endocervix Normal 12/08/2022 [facility] Stat of Adq Cvx/Vag Cyto-Imp Normal 12/08/2022 [facility] LMP Start date NONE GIVEN Normal 12/08/[address] Cyto Cervix Cytology Results: Negative for intraepithelial lesion or malignancy. Normal 12/08/2022 [facility] COMMENT Normal 12/08/2022 [facility] Assessment and Plan ID Update Date Source Alert Text [place] [facility] - [id number] 4 04/01/2021 [place] [facility] - [id number] COVID Vaccination: This patient has received the PFR, COVID-19, mRNA, LNP-S, PF, 0.3mL vaccination on 04/01/2021 with lot number [id number] [facility]. [place] [facility] - [id number] 4 08/20/2020 [facility] - [id number] COVID Vaccination: This patient has received the PFR, COVID-19, mRNA, LNP-S, PF, 0.3mL vaccination on 08/20/2020 with lot number [id number] [facility]. [place] [facility] - [id number] 4 08/02/2020 [place] [facility] - [id number] COVID Vaccination: This patient has received the PFR, COVID-19, mRNA, LNP-S, PF, 0.3mL vaccination on 08/02/2020 with [address] number [id number] [facility]. Encounters Encounter Type Encounter Reason Primary Diagnosis Location Date [facility]ulatory [facility] Amb[facility] Illness [facility] [place] 04/07/2024 Ambulatory Unspecified nonsuppurative otitis media, left ear [facility] 09/04/2022 Ambulatory Acute frontal sinusitis, unspecified [facility] 08/30/2022 [facility]/27/2021 Ambulatory Illness [facility] [place] 11/27/2021 Ambulatory Other fatigue [facility] 11/13/2021 Emergency Acute [facility]stitis w [facility] 11/05/2021 Ambulatory Dysuria [facility] 11/05/2021 Emergency Noninfective gastroenteritis and colitis, unspecified [facility] 04/20/2021 Ambulatory Noninfective gastroenteritis and colitis, unspecified [facility] 04/20/2021 Emergency Nausea [facility] 022 Emergency medical services Abdominal pain, generalized - Medical Pain (General) [facility] 04/19/2021 Ambulatory [facility] 04/01/2021 Ambulatory [facility] 03/15/2021 Care Team Organization Name Specialty Phone Email Start Date End Da te [facility] [place] 04/08/2024 [facility] 2023 5 [employer] 05/28/2023 [facility] 01/09/2023 5 [facility] MIRIAM BLANCO Primary Care MALINDA [email or web address] 10/04/2022 5 [facility] [employer] 10/04/2022 5 [facility] MIRIAM BLANCO Primary Care MALINDA [email or web address] 09/19/2022 5 [facility] 03/28/2022 4 [facility] 03/15/2022 02 4 [facility] FRANK MADRID Primary Care [email or web address] 03/03/2022 5 [employer] TARIK JOHNS Primary Care [email or web address] 02/21/2022 [facility] Physician [facility] 11/27/2021 [facility] 11/20/2021 4 [facility] 04/19/2021 4 [facility] [email or web address] 04/19/2021 2 [facility] NO PCP) Primary Care 2 2
--- OUTSIDE RECORDS SUMMARY | 2024-10-08 15:41 | XMS_ITS | Data Portability ---
Author Organization [facility] Address [address] [place] [address] Assessment No assessment recorded. Plan of Treatment [...] e and Address Organization Details Recorded Time COVID-19, mRNA, LNP-S, PF, 30 mcg/0.3 mL dose 08/02/2020 completed Kelsea Amandeep null, [facility] 04/01/2021 11:36:00 COVID-19, mRNA, LNP-S, PF, 30 mcg/0.3 mL dose 08/20/2020 completed Kelsea Amandeep null, [facility] 04/01/2021 11:36:33 COVID-19, mRNA, LNP-S, PF, 30 mcg/0.3 mL dose 04/01/2021 completed Anibal Wallace null, [facility] 04/01/2021 14:18:06 Past Encounters Encounter ID Performer Location Encounter Start Date Encounter Closed Date Diagnosis/Indication Diagnosis SNOMED-CT Code Diagnosis ICD10 Code Diagnosis Note [id number] Prem Chandra MD [facility] [place] [facility]* [address],[facility] [address] [place] [id number] 04/01/2021 13:53:14 04/01/2021 16:28:31 Administration of SARS-CoV-2 antigen vaccine [id number] Z23 Health Concerns Section Related Observation LastModified by Organization Detai ls LastModified Time None Recorded Concern Status LastModified by Organization Details LastModified Time None Recorded Advance Directives Directive None Recorded Payers Insurance Date Sequence Insurance Name Policy Number Policy Cabral Covered Member ID Cabral Member ID Guarantor Name 04/15/2021 1 ANIBAL (PPO) [address] Sunny [id number] Usha Sunny 04/17/2021 1 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
--- OUTSIDE RECORDS SUMMARY | 2024-10-08 15:41 | XMS_ITS | Clinical Summary ---
[facility] Organization [facility] Address [address] [place] [address] Care Team Providers Care Bilingual Spanish Inbound Sales Name Role Phone Unavailable Primary Care Provider Unavailabl e Source Comments You are receiving this document as you are listed as the primary care provider,follow-up provider, or the patient has been referred to you for consultation.This is in compliance with the Medicare andOhiohealth Hardin Memorial Hospitalcaid EHR Incentive Program,which states Providers who transition their patient to another setting of careor provider of care or refers their patient to another provider of care shouldprovide summary care record for each transition of care or referral. [employer] Allergies Active Allergy Reactions Criticality Noted Date Comments Cephalosporins Hives High 02/25/2021 Penicillins Hives High 02/25/2021 Medications escitalopram (LEXAPRO) 10 MG tablet Take 1 Tablet (10 mg) by mouth every morning. Active escitalopram oxalate (LEXAPRO) 5 MG tablet Take 1 Tablet (5 mg) by mouth daily. Active fexofenadine (FOREST) 180 MG tablet Forest Active JUNE FE 24 1-20 MG-MCG(24) Take 1 Tablet by mouth daily. 04/20/2024 Active Social History Tobacco Use Types Packs/Day Years Used Date Smoking Tobacco: Former Cigarettes Tobacco Cessation:Counseling Given: Not Answered Alcohol Use Standard Drinks/Week Comments Yes 0 (1 standard drink = 0.6 oz pur e alcohol) Comments Unknown Sex and Gender Information Value Date Recorded Sex Assigned at Not on file Legal Sex Female 10:05 AM [employer] Gender Identity Not on file Sexual Orientation Not on file Last Filed Vital Signs Vital Sign Reading Time Taken Comments Blood Pressure - - Pulse 74 05/05/2024 2:12 PM [employer] Temperature - - Respiratory Rate - - Oxygen Saturation - - Inhaled Oxygen Concentration - - Weight - - Height - - Body Mass Index - - Plan of Treatment Health Maintenance Due Date Last Done Comments Cervical Cancer Screening Due 2001 Chlamydia 2001 Hep C Screening (Preventive Services) 2001 MenB Immunization Discussion 2001 HIV Screening (Preventive Services) 2017 Adult Preventive Visit 06/13/2019 HepB Vaccine (1) 2020 COVID-19 Vaccine ( season) 2023 04/01/2021, 08/23/2020, 08/02/2020 Influenza Vaccine (Season Ended) 2024 01/15/2023, 01/22/2022, 01/24/2021 DTaP/Tdap/Td Vaccine (8 - Tdap) 11/14/2029 11/15/2019, 10/30/2011, 06/18/2005, Additional history exists Zoster/Shingles Vaccine (1 of 2) 06/13/2051 Hib Vaccine Completed 09/13/2002, 09/2001, 2001, Additional history exists Pneumococcal Vaccine Aged Out 09/13/2002, 2001, 2001, Additional history exists No longer eligible based on patient's age to complete this topic IPV (Polio) Vaccine Completed 06/18/2005, 03/15/2002, 2001, Additional history exists HPV Vaccine Completed 05/26/2016, 01/11, 11/21/2015 MCV4 Vaccine Completed 02/02/2018, 10/30/2011 HepA Vaccine Aged Out No longer eligi ble based on patient's age to complete this topic Insurance [employer]
[2024-10-08 15:43] VITALS: BP 121/84; PULSE 88; RESP 18; TEMP 36.6; O2SAT 98; BMI 22.6
--- NOTE | 2024-10-08 16:06 | ED_ITS ---
HPI - Female Genitourinary General Chief complaint: Urogenital Problems, Female Stated complaint: UTI concerns Time Seen by Provider: 10/08/24 15:41 History of Present Illness HPI Narrative: This 24-year-old female comes in with dysuria symptoms typical of a urinary tract infection. She states that she has a history of recurrent infections occurring once or twice a year. She states that she began to have some very mild symptoms last evening but her discomfort became much worse just prior to arrival. She does not report any fevers and arrives here in with normal vital signs. She reports abdominal pain and pain with voiding along with increased frequency and urgency. Related Data Home Medications ?Medication ?Instructions ?Recorded ?Confirmed norethindrone 1 mg-ethinyl 1 tab PO DAILY 12/22/21 estradiol 20 mcg (24)-iron 75 mg (4) tablet (Blisovi 24 Fe) escitalopram oxalate 20 mg tablet 20 mg PO DAILY 08/0910/08/24 Allergies Allergy/AdvReac Type Severity Reaction Status Date / Time Cephalosporins Allergy Intermediate Verified 10/08/24 15:47 Penicillins Allergy Intermediate Verified 10/08/24 15:47 Sulfa (Sulfonamide Allergy Intermediate Verified 10/08/24 15:47 Antibiotics) Review of Systems Status of ROS: Reports: 10 or more systems reviewed and unremarkable except as noted in History and below Narrative: Constitutional: No fevers, no weight gain or loss. Eyes: No discharge. No vision changes. HENT: No congestion, no sore throat, no ear pain. Cardiovascular: No chest pain, no palpitations. Respiratory: No shortness of breath, no wheezes, no cough. Gastrointestinal: No vomiting, no diarrhea. Genitourinary: No hematuria. Dysuria symptoms as described above. Musculoskeletal: Normal range of motion. Skin: No rashes, no pruritis. Neurological: No dizziness, weakness, sensory change, speech change. Endo/Heme/Allergies: No bruising or bleeding. No polydipsia. Pysch: no suicidality, no anxiety, no insomnia. All other systems reviewed and are negative. [facility] Medical History Urinary tract infection ?N39.0 - Urinary tract infection, site not specified (ICD-10) Social History Smoking Status: Never smoker Do you use any of these nicotine containing products: None Second hand tobacco smoke exposure: No How often do you have a drink containing alcohol: 2-4 times a month How many standard drinks containing alcohol do you have on a typical day: 5 or 6 How often do you have six or more drinks on one occasion: Monthly AUDIT-C Alcohol total score: 6 Non-prescribed substance use: denies use Exam Narrative: Exam Narrative: Constitutional: Well-developed, well-nourished, no acute distress. HEENT: Normocephalic, atraumatic. Neck: Normal range of motion. Nontender. Supple. Heart: Intact distal pulses. Lungs: No chest discomfort. No wheezes, rhonchi, or rales. Abdomen: Nontender. Back: Normal range of motion. Extremities: Normal range of motion. No injury. Skin: Intact. No rash. Warm. No erythema or pallor. Neurologic: No altered sensation. No weakness. Alert and oriented. Psychiatric: No suicidality. No anxiety or depression. No insomnia. Nursing notes and vitals signs are reviewed. Const: Vital Signs, click to edit/add: Vital Signs - 24 hr 10/08/24 15:43 Temperature 97.9 F Pulse Rate [Right Pulse Oximeter] 88 Respiratory Rate 18 Blood Pressure [Ri ght Upper Arm] 121/84 Pulse Oximetry 98 Oxygen Delivery Me thod Room Air Course Vital Signs Vital signs: Initial Vital Signs Temperature 97.9 F 10/08/24 15:43 Temperature Source Temporal Artery Scan 10/08/24 15:43 Pulse Rate 88 10/08/24 15:43 Pulse Rhythm Regular 10/08/24 15:43 Pulse Strength 3+ Normal 10/08/24 15:43 Respiratory Rate 18 10/08/24 15:43 Blood Pressure 121/84 10/08/24 15:43 Blood Pressure Mean 96 10/08/24 15:43 Blood Pressure Position Sitting 10/08/24 15:43 Pulse Oximetry 98 10/08/24 15:43 Oxygen Delivery Method Room Air 10/08/24 15:43 Vital Signs Temperature 97.9 F 10/08/24 15:43 Pulse Rate 88 10/08/24 15:43 Respiratory Rate 18 10/08/24 15:43 Blood Pressure 121/84 10/08/24 15:43 Pulse Oximetry 98 10/08/24 15:43 Oxygen Delivery Method Room Air 10/08/24 15:43 Temperature 97.9 F 10/08/24 15:43 Pulse Rate 88 10/08/24 15:43 Respiratory Rate 18 10/08/24 15:43 Blood Pressure 121/84 10/08/24 15:43 Pulse Oximetry 98 10/08/24 15:43 Oxygen Delivery Method Room Air 10/08/24 15:43 Medications Administered Medications: Discontinued Medications Generic Name Dose Route Start Last Admin Trade Name Kurt PRN Reason Stop Dose Admin Phenazopyridine HCl 200 mg 10/08/24 16:05 10/08/24 16:20 Phenazopyridine Hcl 200 Mg Tablet PO 10/08/24 16:06 200 mg ONCE ONE Administration MDM - Female Genitourinary MDM Narrative Medical decision making narrative: This patient comes in with urinary symptoms typical of infection. She has had numerous infections in the past and does see a urologist for ongoing management. Urinalysis is obtained and shows evidence of infection. The patient did receive a tablet of azo for symptomatic relief. A prescription for Cipro is provided from a [employer]. She does have allergies to cephalosporins, penicillins, and sulfa. Lab Data Labs: Lab Results 10/08/24 Range/Units 16:10 Urine Color Yellow (Yellow) Urine Appearance Cloudy A (Clear) Urine pH 6.0 (5.0-8.5) Ur Specific [place] 1.025 (1.000-1.030) Urine Protein Negative (Negative) Urine Glucose (UA) Negative (Negative) Urine Ketones Trace A (Negative) Urine Blood 2+ A (Negative) Urine Nitrite Positive A (Negative) Urine Bilirubin Negative (Negative) Urine Urobilinogen 1.0 (0.2-1.0) Ur Leukocyte Esterase 1+ A (Negative) Urine RBC 2-5 A (0-2) Urine WBC 25-50 A (0-5) Ur Squamous Epith Cells Few (None-Few) Amorphous Sediment Few A (None) Urine Bacteria Moderate A (None) Urine Mucus Few A (None) Discharge Plan Discharge Clinical Impression: Urinary tract infection Patient Disposition: Home, Self-Care Condition: Stable Additional Instructions: Take medication as prescribed. Follow up with MD or return if worsening. Prescriptions: No Action Blisovi 24 Fe 1 mg-20 mcg (24)/75 mg (4) tablet 1 tab PO DAILY Patient Comments: TAKE 1 TABLET BY MOUTH EVERY DAY escitalopram oxalate 20 mg tablet 20 mg PO DAILY Follow Up/Referrals: Provider,Not a Local [Primary Care Provider, Family Practice] Stand Alone Forms: MyHealth Info Instructions
[2024-10-08 16:18] LABS: Appearance Urine Cloudy (Clear); Bilirubin Urine Negative (Negative); Blood Urine 2+ (Negative); Color Urine Yellow (Yellow); Glucose Urine Negative (Negative); Ketones Urine Trace (Negative); Leukocyte Esterase Urine 1+ (Negative); Nitrite Urine Positive (Negative); Protein Urine Negative (Negative); Specific Gravity Urine 1.025 (1.000-1.030)
[2024-10-08] MEDS: PHENAZOPYRIDINE HCL 200 MG TABLET PO (16:20)
[2024-10-08 16:27] LABS: Amorphous Sediment Urine Few; Bacteria Urine Moderate; Mucus Urine Few; Squamous Epithelial Cell Urine Few (None-Few); WBC Urine 25-50 (0-5)
== END 2024-10-08 17:03 | disposition home or self-care (01) ==
PROVIDERS: Emergency Provider Emergency Medicine Emergency Medical Services
DX: N39.0 Urinary tract infection, site not specified (principal)
CPT/HCPCS: 81001; 87086; 99283; 99284; A9270